=== PATIENT | female | born 1965 | race African-American/Black ===

== ENCOUNTER 2019-08-20 14:54 | Inpatient (IN) | payer BC ==
--- NOTE | 2019-08-20 17:08 | R.PREADM ---
SCREENING DATE AND TIME 08/20/2019 15:50 (LAMINATING MACHINE OPERATOR HELPER) ANTICIPATED REHAB ADMISSION DATE 08/22/2019 REFERRING FACILITY [facility] REFERRAL DATE AND TIME 08/20/2019 15:50 (LAMINATING MACHINE OPERATOR HELPER) ACUTE ADMIT DATE 08/11/2019 Previous Rehabilitation(s): No. REFERRING PHYSICIAN Addison Michael REHAB FACILITY [facility] CLINICAL LIAISON Antonio Dwyer PHYSICIAN REVIEWER Dr. Jared Sands M.D. MR# [id number] [id number] NAME WALTER TIWARI ADDRESS [address] [place]IP [address] DATE OF 1965 AGE 54 SSN# [id number] GENDER female MARITAL STATUS Unknown RACE white ADMIT FROM 01 - Home (private home/apt. board/care, assisted living, assisted, transitional living) PRE-HOSPITAL LIVING SETTING 01 - Home (private home/apt. board/care, assisted living, assisted, transitional living) HOME TYPE AND DETAILS Type of home: single family house # of steps to enter the residence: 0 # of steps within the residence: 0 # of levels in the residence: 1 PRE-HOSPITAL LIVING WITH Family/Relatives FAMILY SUPPORT Yes PRIMARY FAMILY CONTACT NAME Daisha Emerson PRIMARY FAMILY CONTACT PHONE PHONE PRIMARY FAMILY CONTACT ON ADM.? no IS PRIMARY FAMILY CONTACT AUTH. REP.? no 1ST EMERGENCY CONTACT Daisha Emerson 1ST CONTACT PHONE PHONE 1ST CONTACT ON ADM. no IS 1ST CONTACT AUTH. REP.? no PHONE 2ND CONTACT ON ADM.? 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 No ANOTHER CONSTITUTION PARTY RESPONSIBLE? No PRIMARY REHAB/ACUTE DIAGNOSIS: systemic lupus erythmatosus ONSET DATE 08/11/2019 REHAB IMPAIRMENT CATEGORY (YISSEL): 20 Miscellaneous (Misc) does NOT meet 60% rule PRIMARY DIAGNOSIS-RELATED SURGERIES: No surgeries related to the primary diagnosis were performed. COMORBID REHAB/ACUTE DIAGNOSES: - N/A left lower lobe pneumonia scleroderma gastroparesis muscle wasting weakness hypertension depression CHF exacerbation INTERVENTIONS: - Hypertension Fluid management Medications VS - Depression Medications Psycho/social Safety RISK FOR COMPLICATIONS: - Hypertension CVA Hypotension AR TIA - Depression Serotonin side effects SUMMARY OF ACUTE HOSPITALIZATION: Pt. is a 54 yo Right-handed white female. On 08/11/2019 she was admitted to [facility] with diagnosis systemic lupus erythmatos us. Her impairment category is Other Disabling Impairments 13 - Other Disabling Impairments (13). Pre-morbidly, Pt. was independent/mod-I in Self-Care, Ambulation, and Sphincter Control; and she had good Endurance and Safety Awareness. Currently, she has deficits of Locomotion, Self-Care, Endurance, Transfers Control, Ambulation, Safet y Awareness and Self-Care, and Functional mobility. Pt. is now referred to [facility] for acute in-patient rehabilitation in order to maximize patient's functional independence in activities of daily living, strength, ROM, and mobi lity. Patient has realistic goal of being discharged at assistance level 6-Carlos Manuel to reside at Home with Fam justina/Relatives. Patient was admitted to [facility] for Lupus exacerbation and CHF exacerbation. Patient was independent prior to admission and is working with with therapy. PAST MEDICAL HISTORY CHF exacerbation depression gastroparesis hypertension left lower lobe pneumonia muscle wasting scleroderma weakness MEDICATION ALLERGIES: No Known Drug Allergies (NKDA) ENVIRONMENTAL ALLERGIES: - Substance Allergies None Known - Other Allergies None Known CODE STATUS: Full code WEIGHT/HEIGHT/BMI: WEIGHT 155 lbs HEIGHT 5' 6" BMI 25 DIET: - Diet Type Regular - Diet - Solid Texture Regular - Diet - Liquid Texture Regular - Tube Feed N/A REVIEW OF SYSTEMS: - Gen Alert and awake Lying in bed No apparent distress Oriented to: person, time, and place - Vital Signs Vital signs stable, afebrile - CVS RRR VITAL SIGNS Temperature: 97.9 F SBP/DBP: 112/69 Pulse: 64 Resp: 16 Vital signs stable, afebrile MEDICATIONS/TREATMENT: Other- See attached MAR (Medication Administration Record). CURRENT SPHINCTER CONTROL: Pre-hospital bladder status: continent # of bladder accidents in the last 7 days prior to screenin Pre-hospital bowel status: continent # of bowel accidents in the last 7 days prior to screenin Last Bowel Movement Date: 08/20/2019 CURRENT LOCOMOTION STATUS: distance traveled in wheelchair 0 feet distance walked 50 feet DETAILED CURRENT FUNCTIONAL STATUS: - Bladder accident frequency: Ind - No accidents in the past 7 days - Bowel accident frequency: Ind - No accidents in the past 7 days - Walking score based on distance walked: 2(3969ft) - Wheelchair score based on distance traveled: 2(8389ft) QI SCORES: - Self-Care A. Eating 05-Setup or clean-up assistance B. Oral hygiene 05-Setup or clean-up assistance C. Toileting hygiene 04-Supervision or touching assistance E. Shower/bathe self 88-Not attempted due to medical condition or safety concerns F. Upper body dressing 05-Setup or clean-up assistance G. Lower body dressing 04-Supervision or touching assistance H. Putting on/taking off footwear 04-Supervision or touching assistance - Mobility A. Roll left and right 04-Supervision or touching assistance B. Sit to lying 05-Setup or clean-up assistance C. Lying to sitting on side of bed 04-Supervision or touching assistance D. Sit to stand 04-Supervision or touching assistance E. Chair/hix-ja-dzjad transfer 05-Setup or clean-up assistance F. Toilet transfer 04-Supervision or touching assistance G. Car transfer 88-Not attempted due to medical condition or safety concerns I. Walk 10 feet 04-Supervision or touching assistance J. Walk 50 feet with two turns 88-Not attempted due to medical condition or safety concerns K. Walk 150 feet 88-Not attempted due to medical condition or safety concerns L. Walking 10 feet on uneven surfaces 88-Not attempted due to medical condition or safety concerns M. 1 step (curb) 88-Not attempted due to medical condition or safety concerns N. 4 steps 88-Not attempted due to medical condition or safety concerns O. 12 steps 88-Not attempted due to medical condition or safety concerns P. Picking up object 88-Not attempted due to medical condition or safety concerns R. Wheel 50 feet with two turns 88-Not attempted due to medical condition or safety concerns S. Wheel 150 feet 88-Not attempted due to medical condition or safety concerns - Bladder and Bowel Bladder continence 0-Always continent Bowel continence 0-Always continent - Endurance Poor - Balance Fair - Safety Awareness Fair CURRENT FUNC. DEFICITS: Self-Care, Mobility, Endurance, Balance, and Safety Awareness CURRENT / PREVIOUS ASSISTIVE DEVICES: 3-in-1 Commode Rolling Walker Shower Chair HISTORY OF FALLS. HAS THE PATIENT HAD TWO OR MORE FALLS IN THE PAST YEAR OR ANY FALL WITH INJURY IN T HE PAST YEAR?: No PRIOR SURGERY. DID THE PATIENT HAVE MAJOR SURGERY DURING THE 100 DAYS PRIOR TO ADMISSION?: No THERAPY NOTES FROM ACUTE CARE: Attached. SPECIAL NEEDS: - Safety Concerns Skin breakdown precautions needed due to skin breakdown risk PATIENT NEEDS ACTIVE AND ONGOING THERAPEUTIC INTERVENTION OF MULTIPLE THERAPY DISCIPLINES, INCLUDING: - Dietary and Nutrition Adequate Nutrition. Nutritional Education. Nutritional Supplements. PATIENT NEEDS CLOSE MEDICAL SUPERVISION BY A REHABILITATION PHYSICIAN FOR: Coordination of Treatment Team Medical and Co-Morbidity Management PATIENT REQUIRES 24X7 REHAB NURSING FOR MEDICAL AND FUNCTIONAL MGT. OF THE FOLLOWING DEFICITS: Disease Management Medication Management Patient/Family Education Providing Safe Environment PATIENT REQUIRES INTENSIVE, COORDINATED INTERDISCIPLINARY APPROACH TO REHAB: Arranging Home Equipment/Services Discharge Planning Family Intervention/Training Podiatry Teacher/Case Management PATIENT REHAB POTENTIAL: Selina TIWARI is able and expected to receive 3 hours of individualized therapy daily on at least 5 of ever y 7 days Selina TIWARI's prognosis for significant practical improvement within a reasonable period of time appears Good Expected level of measurable improvement will be of a practical value to Selina TIWARI's functional capacit y or adaptations to impairments Has a viable Discharge Plan Medically appropriate; condition is sufficiently stable to participate in intensive rehab program DISCHARGE PLAN: - Estimated Length of Stay (days) 13. - Consensus on plan Discharge plan has been discussed with primary caregiver. Patient/Family is in agreement with the zoë n. Primary caregiver is in agreement with the plan. - Patient/Family Goals Return home with assistance. - Planned Living Setting Upon Discharge Home, to live with Family/Relatives. RECOMMENDED CARE LEVEL: IRF RECOMMENDATION DETAILS: Recommended Admission to Comprehensive Rehabilitation Program to Increase Functional [place] SCREENER'S COMPLETENESS CONFIRMATION: - Screening Confirmation The patient data collection on this preadmission screening form is finished PHYSICIANS REVIEW AND ADMISSION DETERMINATION Admit - Based on my review of the Pre-Admission Screening results, in my medical judgment and experie nce, I concur with the findings and recommend admission to [facility], as this patient requires an IRF level of care. SIGNATURE PANEL: Clinical Liaison - [electronically] signed by Stefanie Galicia on 08/20/2019 at 16:09 (LAMINATING MACHINE OPERATOR HELPER) Clinical Liaison - [electronically] signed by Antonio Dwyer on 08/20/2019 at 16:12 (LAMINATING MACHINE OPERATOR HELPER) Physician Reviewer - [electronically] signed by Dr. Jared Sands M.D. on 08/20/2019 at 17:08 (LAMINATING MACHINE OPERATOR HELPER )
--- OUTSIDE RECORDS SUMMARY | 2019-08-21 05:48 | XMS REPORT | Continuity of Care Document ---
:1965 Author Organization [facility] Address [address] [place] [address] Phone Unavailable Care Team Providers Name Role Phone TREY PALENCIA Primary Care Physician Insurance Providers Guarantor Walter Tiwari Address [address] [place] [address] Email [email or web address] Payer [facility] Policy Number [id number] Subscriber's Name Jovani Tiwari Relationship Spouse Group Number [id number] Group Name NA Advance Directives Directive Response Recorded Date/Time Advance Directives No 09/23/15 11:34pm Directive to Physicians/Living Will No 09/23/15 11:34pm Health Care Proxy No 09/23/15 11:34pm Organ Donor No 09/23/15 11:34pm Medical Power of Awning Hanger Helper No 09/23/15 11:34pm Patient/Family Given Education Material R/T Directives? No 06/18/18 9:10am Problems Medical Problem Onset Date Status Abdominal pain Unknown Acute Acute gastritis Unknown Acute Anxiety Unknown Chronic Anxiety in acute stress reaction Unknown Acute Atypical chest pain Unknown Acute CAD (coronary artery disease) Unknown Chronic Cancer Unknown Chest pain Unknown Acute Chest pain Unknown Acute Constipation Unknown Acute Dehydration Unknown Resolved Depression Unknown Chronic Failure to thrive in adult Unknown Acute HTN (hypertension) Unknown Chronic Headache Unknown Acute Leg pain Unknown Lower extremity weakness Unknown Nausea & vomiting Unknown Resolved Nausea alone Unknown Acute Pericardial effusion Unknown Chronic Rheumatoid arthritis Unknown Chronic Right shoulder pain Unknown Scleroderma Unknown Chronic UTI (urinary tract infection) Unknown Acute Vomiting Unknown Acute Weakness Unknown Past Problems Medical Problem Onset Date Status CHF (congestive heart failure) Unknown Acute Chest pain at rest Unknown Acute Colitis Unknown Acute Epigastric abdominal pain Unknown Acute Hypokalemia Unknown Acute Hypokalemia Unknown Acute Lupus Unknown Acute Lupus Unknown Acute Myositis Unknown Acute Pedal edema Unknown Acute Pericardial effusion Unknown Acute Rhabdomyolysis Unknown Acute Rhabdomyolysis Unknown Acute UTI (urinary tract infection) Unknown Acute Medications Current Home Medications Medication Dose Units Route Directions Days Qty Instructions Start Date Hydroxychloroquine 200 Mg ORAL Once Daily Sulfate (Hydroxychloroquine Sulfate 200 Mg) 200 Mg Tab Lorazepam (Ativan *) 0.5 Mg ORAL Twice Daily As 20 0.5 Mg Tab Needed as Tablet needed for Anxiety Mycophenolate Mofetil 2 Tab ORAL Twice A Day 360 (Cellcept*) 500 Mg for Tablet 7 Tab Scleroderma Prednisone 5 Mg ORAL Daily (Prednisone 1 Mg*) 1 Mg Tab Zolpidem Tartrate 5 Mg ORAL Once Daily At 30 (Ambien *) 5 Mg Tab Bedtime as Tablet 7 needed for Insomnia Past Home Medications Medication Directions Ordered Status Amoxicillin & Pot Clavulanate * Every 12 Hours for Prn 07/24/17 Discontinued (Augmentin Es-600MG Susp *) 1 Ml Lynette, 5 Ml Oral Carvedilol (Coreg *) 3.125 Mg Twice A Day for Hypertension 07/18/17 Discontinued Tab, 1 Tab Oral Citalopram Hydrobromide * Discontinued (Citalopram Hydrobromide 10 Mg *) 10 Mg Tab, Erythromycin (Erythromycin Base) Three Times Daily Before Meals 07/18/17 Discontinued 250 Mg Tabec, 500 Mg Oral for Gastroparesis Famotidine (Pepcid 20 Mg*) 20 Mg Twice A Day for Pud 07/24/17 Discontinued Tab, 20 Mg Oral Furosemide (Lasix 20 Mg*) 20 Mg Twice A Day for Chf 07/24/17 Discontinued Tab, 20 Mg Oral Losartan Potassium (Cozaar 25 Twice A Day for Hypertension 09/17/17 Discontinued Mg*) 25 Mg Tab, 25 Mg Oral Losartan Potassium (Cozaar 25 Daily Discontinued Mg*) 25 Mg Tab, 25 Mg Oral Losartan Potassium (Cozaar 50 Mg Daily for Hypertension 07/18/17 Discontinued *) 50 Mg Tab, 1 Tab Oral Metoclopramide Hcl (Reglan 10 Before Meals And At Bedtime for 07/24/17 Discontinued Mg*) 10 Mg Tab, 10 Mg Oral Nausea Metoclopramide Hcl Discontinued (Metoclopramide Hcl 10 Mg) 10 Mg Tab, Ondansetron Hcl (Zofran *) 4 Mg Every 6 Hours (4-07-14-22) for 07/18/17 Discontinued Tab, 1 Tab Oral N/V Pantoprazole * (Protonix Ec 40 Daily Discontinued Mg*) 40 Mg Tab, 40 Mg Oral Potassium Chloride (Kcl Oral Daily for Hypokalemia 07/24/17 Discontinued Soln 20% *) 20 % Liq, 20 Meq Oral Prednisone (Prednisone 20 Mg*) Daily for Scleroderma 09/17/17 Discontinued 20 Mg Tab, 20 Mg Oral Prednisone (Prednisone 2.5 Mg*) Daily Discontinued 2.5 Mg Tab, 5 Mg Oral Prednisone (Prednisone 20 Mg*) Daily for Lupus/Inflammation 07/18/17 Discontinued 20 Mg Tab, 40 Mg Oral Valsartan (Diovan 160 Mg *) 160 Discontinued Mg Tab, Social History Social History Problem Response Recorded Date/Time Onset Date Status Hx Physical Abuse No 05/14/2018 9:19pm Not Applicable Not Applicable Smoking Status Start Date Stop Date Never smoker Hospital Discharge Instructions No hospital discharge instruction information available. Plan of Care Prescriptions See Medication Section Functional Status No functional status information available. Allergies, Adverse Reactions, Alerts Allergen Type Severity Reaction Status Last Updated Sulfamethoxazole w/Trimethoprim Allergy Severe Active 07/24/17 ([id number]) Immunizations No immunization information available. Vital Signs Acute Vital Signs Vital Response Date/Time Blood Pressure 139/72 mm Hg 05/14/2018 11:41pm Pulse Pulse Rate (adult) 74 beats per minute (60 - 100) 05/14/2018 11:41pm Respiratory Rate 16 breaths per minute (10 - 24) 05/14/2018 11:41pm Temperature Source Oral 05/14/2018 11:41pm Results Laboratory Results Test Name Result Units Flags Reference Collection Result Comments Date/Time Date/Time White Blood 3.4 K/ul L 4.0-11.5 05/14/2018 05/14/2018 Count 10:11pm 10:17pm Red Blood Count 5.02 M/ul 3.80-5.20 05/14/2018 05/14/2018 10:11pm 10:17pm Hemoglobin 12.7 g/dl 10.5-15.7 05/14/2018 05/14/2018 10:11pm 10:17pm Hematocrit 39.6 % 34.0-50.0 05/14/2018 05/14/2018 10:11pm 10:17pm Mean Corpuscular 79.0 fl 78-98 05/14/2018 05/14/2018 Volume 10:11pm 10:17pm Mean Corpuscular 25.3 pg L 26.2-33.4 05/14/2018 05/14/2018 Hemoglobin 10:11pm 10:17pm Mean Corpuscular 32.1 g/dl 31.5-36.2 05/14/2018 05/14/2018 Hemoglobin 10:11pm 10:17pm Concent Red Cell 14.6 % 11.5-15.5 05/14/2018 05/14/2018 Distribution 10:11pm 10:17pm Width Platelet Count 263 K/ul 137-338 05/14/2018 05/14/2018 10:11pm 10:17pm Mean Platelet 7.6 fl L 8.4-11.8 05/14/2018 05/14/2018 Volume 10:11pm 10:17pm Neutrophils (%) 69.7 % 44.4-80.1 05/14/2018 05/14/2018 (Auto) 10:11pm 10:17pm Lymphocytes (%) 15.9 % 10.0-50.0 05/14/2018 05/14/2018 (Auto) 10:11pm 10:17pm Monocytes (%) 12.0 % 3.6-12.04 05/14/2018 05/14/2018 (Auto) 10:11pm 10:17pm Eosinophils (%) 0.4 % 0.0-5.41 05/14/2018 05/14/2018 (Auto) 10:11pm 10:17pm Basophils (%) 2.0 % H 0.0-0.79 05/14/2018 05/14/2018 (Auto) 10:11pm 10:17pm Random Glucose 93 mg/dL 74-106 05/14/2018 05/14/2018 10:11pm 10:58pm Blood Urea 5 mg/dL L 6-20 05/14/2018 05/14/2018 Nitrogen 10:11pm 10:58pm Serum Osmolality 273 L 280-300 05/14/2018 05/14/2018 10:11pm 10:58pm Creatinine 0.3 mg/dL L 0.50-0.90 05/14/2018 05/14/2018 10:11pm 10:58pm Glomerular > 60.00 05/14/2018 05/14/2018 GFR RESULTS ARE REPORTED IN mL/min/1.73m2. Filtration Rate 10:11pm 10:58pm Calc Normal GFR: >60mL/min Moderately decreased GFR: 30-59 mL/min Severely decreased GFR: 15-29 mL/min Kidney Failure (or Dialysis): <15 mL/min The calculated eGFR is not valid for patients younger than 18 years or older than 75 years. BUN/Creatinine 16.7 09-1705/14/2018 05/14/2018 Ratio 10:11pm 10:58pm Sodium Level 138 mmol/L 135-145 05/14/2018 05/14/2018 10:11pm 10:58pm Potassium Level 3.3 mmol/L L 3.5-5.2 05/14/2018 05/14/2018 10:11pm 10:58pm Chloride Level 97 mmol/L L 98-108 05/14/2018 05/14/2018 10:11pm 10:58pm Carbon Dioxide 26 mmol/L 21-32 05/14/2018 05/14/2018 Level 10:11pm 10:58pm Anion Gap 18.3 mEq/L 09-1705/14/2018 05/14/2018 10:11pm 10:58pm Calcium Level 9.9 mg/dL 8.6-10.0 05/14/2018 05/14/2018 10:11pm 10:58pm Magnesium Level 1.8 mg/dL 1.6-2.6 05/14/2018 05/14/2018 10:11pm 10:58pm Procedures Procedure Status Date Provider(s) EMERGENCY DEPT VISIT Completed 05/14/18 COMPLETE CBC W/AUTO DIFF WBC Completed 05/14/18 ASSAY OF MAGNESIUM Completed 05/14/18 ROUTINE VENIPUNCTURE Completed 05/14/18 METABOLIC PANEL TOTAL CA Completed 05/14/18 X-RAY EXAM OF SMALL BOWEL Completed 05/27/18 XR small bowel series Completed 05/27/18 FRED WHEELER MOBILE EQUIPMENT OPERATOR Encounters Encounter Location Arrival/Admit Date Discharge/Depart Date Attending Provider Discharged [place] 06/25/18 9:00am 06/28/18 11:59pm ELEAZAR BARNEY [facility] MD Medical Ctr Registered [place] 05/27/18 8:38am FRED WHEELER [facility] MOBILE EQUIPMENT OPERATOR Medical Ctr Departed [place] 05/14/18 9:04pm 05/14/18 11:42pm SHANNAN, Emergency Room [facility] RASHEEDA Mena MD Medical Ctr Recent Diagnosis Leg pain Lower extremity weakness
--- OUTSIDE RECORDS SUMMARY | 2019-08-21 05:48 | XMS REPORT | Continuity of Care Document ---
:1965 Author Organization [facility] Address [address] [place] [address] Phone Unavailable Care Team Providers Name Role Phone HONEY CUELLAR MD Primary Care Physician Insurance Providers Guarantor Walter Tiwari Address [address] [place] [address] Email Payer [facility] Policy Number [id number] Subscriber's Name Jovani Tiwari Relationship Spouse Group Number [id number] Group Name NA Advance Directives Directive Response Recorded Date/Time Advance Directives No 09/23/15 11:34pm Advance Directive on File No 07/11/18 5:57pm Directive to Physicians/Living Will No 09/23/15 11:34pm Health Care Proxy No 09/23/15 11:34pm Name of Surrogate/Decision Maker NA 07/11/18 5:55pm Organ Donor No 09/23/15 11:34pm Medical Power of Budget Report Clerk No 09/23/15 11:34pm Patient/Family Given Education Material R/T Y - KR..07/11/18 07/11/18 5: 57pm Directives? Chief Complaint and Reason for Visit Chief Complaint Trauma Reason for Visit [id number] Minor head injury without loss of consciousness Fall Problems Medical Problem Onset Date Status Abdominal [...] Unknown Acute Epigastric abdominal pain Unknown Acute Fall Unknown Acute Hypokalemia Unknown Acute Hypokalemia Unknown Acute Lupus Unknown Acute Lupus Unknown Acute Minor head injury without loss of consciousness Unknown Acute Myositis Unknown Acute Pedal edema Unknown Acute Pericardial effusion Unknown Acute Periorbital contusion Unknown Acute Rhabdomyolysis Unknown Acute Rhabdomyolysis Unknown [...] (Zofran *) 4 Mg Every 6 Hours (01-07-16) for 07/18/17 Discontinued Tab, 1 Tab Oral [...] Onset Date Status Hx Physical Abuse No 07/11/2018 5:57pm Not Applicable Not Applicable Smoking Status Start Date Stop Date Never smoker Hospital Discharge Instructions No hospital discharge instruction information available. Plan of Care Discharge Date 07/11/18 9:20pm Instructions/Education Provided Fall Prevention in the Home, Rnmn-te-Exru Eye Contusion, Teye-xv-Zcas Head Injury, Adult, Ufjx-le-Zcsh Forms Provided Portal Welcome Letter Prescriptions See Medication Section Referrals HONEY CUELLAR MD Address: [address] [place] [id number] Additional Instructions/Education HEAD INJURY INSTRUCTIONS GIVEN. ICE PACKS TO THE AREA. NAPROXEN 500 MG AND TYLENOL # 3 DIRECTED. F/U WITH PMD ON [facility]. RETURN PER HEAD INJURY INSTRUCTIONS. Functional Status No functional status information available. Allergies, Adverse Reactions, Alerts Allergen Type Severity Reaction Status Last Updated Sulfamethoxazole w/Trimethoprim Allergy Severe Active 07/24/17 ([id number]) Immunizations No immunization information available. Vital Signs Acute Vital Signs Vital Response Date/Time Blood Pressure 139/74 mm Hg 07/11/2018 9:29pm Pulse Pulse Rate (adult) 86 beats per minute (60 - 100) 07/11/2018 9:29pm Respiratory Rate 18 breaths per minute (10 - 24) 07/11/2018 9:29pm Temperature Source Oral 07/11/2018 9:29pm Height 5 ft 6 in 07/11/2018 5:57pm Weight 132 lb 07/11/2018 5:57pm Body Mass Index 21.3 kg/m^2 07/11/2018 5:57pm Results Laboratory Results Test Name Result Units [...] or older than 75 years. BUN/Creatinine 16.7 12-05/14/2018 05/14/2018 Ratio 10:11pm 10:58pm Sodium Level 138 mmol/L 135-145 05/14/2018 05/14/2018 10:11pm 10:58pm Potassium Level 3.3 mmol/L L 3.5-5.2 05/14/2018 05/14/2018 10:11pm 10:58pm Chloride Level 97 mmol/L L 98-108 05/14/2018 05/14/2018 10:11pm 10:58pm Carbon Dioxide 26 mmol/L 21-32 05/14/2018 05/14/2018 Level 10:11pm 10:58pm Anion Gap 18.3 mEq/L 12-20 05/14/2018 05/14/2018 10:11pm 10:58pm Calcium Level 9.9 mg/dL 8.6-10.0 05/14/2018 05/14/2018 10:11pm 10:58pm Magnesium Level 1.8 mg/dL 1.6-2.6 05/14/2018 05/14/2018 10:11pm 10:58pm Procedures Procedure Status Date Provider(s) EMERGENCY DEPT VISIT Completed 05/14/18 COMPLETE CBC W/AUTO DIFF WBC Completed 05/14/18 ASSAY OF MAGNESIUM Completed 05/14/18 ROUTINE VENIPUNCTURE Completed 05/14/18 METABOLIC PANEL TOTAL CA Completed 05/14/18 X-RAY EXAM OF SMALL BOWEL Completed 05/27/18 PT EVAL MOD COMPLEX 30 MIN Completed 06/18/18 SELF CARE MNGMENT TRAINING Completed 06/18/18 SELF CARE MNGMENT TRAINING Completed 06/18/18 THERAPEUTIC EXERCISES Completed 06/18/18 SELF CARE MNGMENT TRAINING Completed 06/18/18 THERAPEUTIC EXERCISES Completed 06/18/18 CT SOFT TISSUE NECK W/DYE Completed 06/30/18 XR small bowel series Completed 05/27/18 FRED WHEELER NP Computed tomography of neck with contrast Completed 06/30/18 SABRINA CHRISTINE MD Computed tomography of head without Completed 07/11/18 LEATHA IRVING MD contrast Computed tomography of facial bones and Completed 07/11/18 LEATHA IRVING MD paranasal sinuses without contrast Encounters Encounter Location Arrival/Admit Date Discharge/Depart Date Attending Provider Departed [place] 07/11/18 5:48pm 07/11/18 9:20pm LEATHA IRVING Emergency Room Rufus Doran MD Medical Ctr Registered [place] 06/30[facility] 8:[facility] S[facility] Del[facility] Medical Ctr Discharged [place] 06/18/18 9:12am 06/28/18 11:59pm ELEAZAR BARNEY [facility] MD Medical Ctr Registered [place] 05/27/18 8:38am FRED WHEELER [facility] TOURIST GUIDE Medical Ctr Departed [place] 05/14/18 9:04pm 05/14/18 11:42pm SHANNAN, Emergency Room [facility] RASHEEDA Mena MD Medical Ctr Recent Diagnosis
--- OUTSIDE RECORDS SUMMARY | 2019-08-21 05:48 | XMS REPORT ---
:1965 [facility] [address] [place] [address] [place] [address] Care Team Providers Name Role Phone Unavailable Unavailable Unavailable Problems This patient has no known problems. Allergies, Adverse Reactions, Alerts This patient has no known allergies or adverse reactions. Medications This patient has no known medications. Encounters Start End Encounter Admission Attending Care Care Encounter Date/Time Date/Time Type Type Clinicians Facility Department ID 2019-08-18 Outpatient [facility] [id number] 15:47:07 2019-01-22 Outpatient [facility] [id number] 11:10:13 2019-06-24 2019-06-24 Outpatient [facility] [id number] 09:38:00 09:38:00 2019-03-29 2019-03-29 Outpatient [facility] [id number] 08:56:00 08:56:00 2019-03-22 2019-03-22 Outpatient [facility] [id number] 13:45:00 13:45:00
--- OUTSIDE RECORDS SUMMARY | 2019-08-21 05:49 | XMS REPORT | Encounter Summary ---
:1965 Author Care Team Providers Name Role Phone Caroline Velazquez Primary Care Provider [phone] Nichol Rah Primary Care Provider [phone] Reason for Visit Follow Up Visit Instructions 1. Systemic lupus erythematosus lupus: care instructions physical therapy referral 2. Edema of lower extremity leg and ankle edema: care instructions furosemide 20 mg tablet 3. Nondiabetic gastroparesis Discussion Note: None recorded. Plan of Care Reminders Provider Appointments Return to on or around [facility] Office 11/01/2018 MD [facility] None recorded. Referral Physical 09/30/2018 [facility] Referral [facility] (Physical Therapy) Procedures None recorded. Surgeries None recorded. Imaging None recorded. Medications Name Start Date amlodipine 10 mg tablet carvedilol 3.125 mg tablet citalopram 10 mg tablet Take 1 tablet every day by oral route. famotidine 20 mg tablet furosemide 20 mg tablet Take 1 tablet as needed by oral route as needed. hydroxychloroquine 200 mg tablet lorazepam 0.5 mg tablet losartan 25 mg tablet metoclopramide 10 mg tablet Take 1 tablet 4 times a day by oral route with meals. mycophenolate mofetil 200 mg/mL oral suspension mycophenolate mofetil 500 mg tablet mycophenolate sodium 360 mg tablet,delayed release nifedipine ER 30 mg tablet,extended release 24 hr nystatin 100,000 unit/mL oral suspension ofloxacin 0.3 % ear drops omeprazole 20 mg capsule,delayed release pantoprazole 40 mg tablet,delayed release potassium chloride 40 mEq/15 mL oral liquid potassium chloride ER 10 mEq tablet,extended release(part/cryst) prednisone 20 mg tablet promethazine 25 mg tablet sucralfate 1 gram tablet zolpidem 5 mg tablet Medications Administered None recorded. Vitals Height Weight BMI Blood Pressure 67 in 125 lbs 6 oz 19.6 kg/m2 146/89 mm[Hg] Lab Results Date Name Specimen Result Interpretation Description Value Range Status Address 09/07/2018 CBC W/ Auto Normal White Blood 8.6 K/uL 4.0-11.5 Final [place] Diff Count K/uL [facility] (Lab): [address] [place] [address] Normal Red Blood 4.78 3.80-5.20 Final [place] Count M/uL M/uL [facility] (Lab): [address] [place] [address] Normal Hemoglobin 12.0 10.5-15.7 Final [place] g/dL g/dL [facility] (Lab): [address] [place] [address] Normal Hematocrit 38.0 % 34.0-50.0 Final [place] % [facility] (Lab): [address] [place] [address] Normal Mean 79.5 fL 78-98 fL Final [place] Corpuscular [facility] Volume [facility] (Lab): [address] [place] [address] Low Mean 25.0 pg 26.2-33.4 Final [place] Corpuscular pg [facility] Hemoglobin [facility] (Lab): [address] [place] [address] Normal Mean 31.5 31.5-36.2 Final [place] Corpuscular g/dL g/dL [facility] (Lab): [address] [place] [address] Red Cell 16.3 % 11.5-15.5 Final [place] Distribution % [facility] Width [facility] (Lab): [address] [place] [address] Normal Platelet 210 K/uL 137-338 Final [place] Count K/uL [facility] (Lab): [address] [place] [address] Low Mean 6.2 fL 8.4-11.8 Final [place] Platelet fL [facility] (Lab): [address] [place] [address] High Neutrophils 85.0 % 44.4-80.1 Corrected [place] % % [facility] (Lab): [address] [place] [address] Low Lymphocyte% 5.9 % 10.0-50.0 Final [place] % [facility] (Lab): [address] [place] [address] Normal [place] % 8.1 % 3.6-12.04 Final [place] % [facility] (Lab): [address] [place] [address] Normal Eos % 0.2 % 0.0-5.41 Final [place] % [facility] (Lab): [address] [place] [address] High Basophil % 0.8 % 0.0-0.79 Final [place] % [facility] (Lab): [address] [place] [address] 09/07/2018 Differential Normal Neutrophils Incomplete [place] Panel, Blood [facility] (Lab): [address] [place] [address] Normal Band Incomplete [facility] (Lab): [address] [place] [address] Normal Lymphocyte Incomplete [facility] (Lab): [address] [place] [address] Normal Atypical Incomplete [place] Lymph [facility] (Lab): [address] [place] [address] Normal Monocyte Incomplete [facility] (Lab): [address] [place] [address] Normal Eosinophil Incomplete [facility] (Lab): [address] [place] [address] Normal Basophil [facility] (Lab): [address] [place] [address] Normal Metamyelocyt [facility] e [facility] (Lab): [address] [place] [address] Normal Platelet Incomplete [place] Estimate [facility] (Lab): [address] [place] [address] Normal Platelet [facility] Morphology [facility] (Lab): [address] [place] [address] Normal Hypochromasi [facility] a [facility] (Lab): [address] [place] [address] Normal Anisocytosis [facility] (Lab): [address] [place] [address] Normal Microcytosis [facility] (Lab): [address] [place] [address] Normal Stomatocyte [facility] (Lab): [address] [place] [address] Normal Toxic Incomplete [place] Granulation [facility] (Lab): [address] [place] [address] Normal Hypersegment [facility] ed Polys [facility] (Lab): [address] [place] [address] Normal Rouleau Incomplete [facility] (Lab): [address] [place] [address] Normal Toxic Incomplete [place] Vacuolation [facility] (Lab): [address] [place] [address] Normal Giant Incomplete [place] Platelets [facility] (Lab): [address] [place] [address] Normal Differential [facility] comment-P [facility] (Lab): [address] [place] [address] 09/07/2018 Lactic Acid, High Lactic Acid 2.53 0.5-2.2 Final [place] Blood mmol/L mmol/L [facility] (Lab): [address] [place] [address] 09/07/2018 CMP, Serum High Glucose 110 74-106 Final [place] or Plasma mg/dL mg/dL [facility] (Lab): [address] [place] [address] Normal Blood Urea 18 mg/dL 6-20 Final [place] Nitrogen mg/dL [facility] (Lab): [address] [place] [address] Low Osmolality 278 280-300 Final [place] Calculated, [facility] Serum [facility] (Lab): [address] [place] [address] Low Creatinine 0.3 0.50-0.90 Final [place] mg/dL mg/dL [facility] (Lab): [address] [place] [address] Normal Glomerular >60.00 Final [place] Filtration [facility] (Lab): [address] [place] [address] High BUN/creatini 60.0 12-20 Final [place] ne Ratio [facility] (Lab): [address] [place] [address] Normal Sodium Level 138 135-145 Final [place] mmol/L mmol/L [facility] (Lab): [address] [place] [address] Normal Potassium 3.8 3.5-5.2 Final [place] Level mmol/L mmol/L [facility] (Lab): [address] [place] [address] Normal Chloride 99 98-108 Final [place] Level mmol/L mmol/L [facility] (Lab): [address] [place] [address] Normal Co2 25 21-32 Final [place] mmol/L mmol/L [facility] (Lab): [address] [place] [address] Normal Anion Gap 17.8 12-20 Final [place] mEq/L mEq/L [facility] (Lab): [address] [place] [address] Normal Calcium 9.6 8.6-10.0 Final [place] Level mg/dL mg/dL [facility] (Lab): [address] [place] [address] Normal Total 8.0 g/dL 6.6-8.7 Final [place] Protein g/dL [facility] (Lab): [address] [place] [address] Normal Albumin 4.5 g/dL 3.5-5.2 Final [place] g/dL [facility] (Lab): [address] [place] [address] Normal Globulin 3.5 Final [place] gm/dL [facility] (Lab): [address] [place] [address] Normal A/g Ratio 1.3 >1.0 Final [place] [facility] (Lab): [address] [place] [address] Normal Bilirubin,to 1.0 0.0-1.2 Final [place] sushila mg/dL mg/dL [facility] (Lab): [address] [place] [address] High AST/SGOT 99 U/L 15-32 U/L Final [facility] (Lab): [address] [place] [address] High ALT/SGPT 82 U/L 0-33 U/L Final [facility] (Lab): [address] [place] [address] Normal Alkaline 61 U/L 35-105 Final [place] Phosphatase, U/L [facility] Total [facility] (Lab): [address] [place] [address] 09/07/2018 Lipase, Normal Lipase 31 U/L 13-60 U/L Final [place] Serum or [facility] Plasma [facility] (Lab): [address] [place] [address] 09/07/2018 CK (Creatine CRITICAL Creatine 1790 U/L 20-180 Final [place] Kinase), HIGH Kinase U/L [facility] Serum [facility] (Lab): [address] [place] [address] 09/07/2018 Myoglobin, High Myoglobin 869 25-58 Final [place] Serum or NG/mL NG/mL [facility] Plasma [facility] (Lab): [address] [place] [address] 09/07/2018 Troponin I, Normal Cardiac <0.30 0.0-0.5 Final [place] Cardiac, Troponin I NG/mL NG/mL [facility] Quant, Blood [facility] (Lab): [address] [place] [address] 09/07/2018 CK-mb, Blood CRITICAL Mass 58.6 0.0-3.6 Final [place] HIGH Creatinine NG/mL NG/mL [facility] Kinase-mb [facility] (Lab): [address] [place] [address] 09/07/2018 PT/INR Normal Prothrombin 10.7 10.3-12.3 Final [place] Time seconds seconds [facility] (Lab): [address] [place] [address] Normal Inr 0.97 Final [facility] (Lab): [address] [place] [address] 09/07/2018 Partial Normal Partial 26.6 22.5-37.0 Final [place] Thromboplast Thromboplasti seconds seconds [facility] in [facility] (Lab): 104 [address] [facility] Allergies Code Code System Name Reaction Severity Status Onset Sulfa Active (Sulfonamid e Antibiotics ) Problems Name Status Onset Date Source Gastritis Active Encounter Neck Pain Active Encounter Acute Thoracic Back Pain Active Encounter Fatigue Active Encounter Procedures Date Name Performed by 06/30/2017 Colonoscopy Information not available 06/20/2017 Upper GI Endoscopy Information not available Cholecystectomy Information not available Hysterectomy Information not available Vaccine List None recorded. Social History Smoking Status Never Smoker Past Encounters 09/30/2018 Systemic Lupus Erythematosus; Edema of Lower Extremity; Nondiabetic Gastroparesis Addison Michael MD: [address] [place] [address], [address], [place] [address], Ph. 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 She does have SLE as well, she iris plaquenil and cellcept. She does have lower extremity edema, intermittently.<div> She has been on lasix in the past but not recently.</div><div>
</div><div>SLEwith a hx of pericardial effusion, s/p pericardial window January 2018, followes with Dr Mckenzie</div><div>
</div ><div>She also sees Dr Sauer for vomiting and gerd. She had an EGD done, no tears or ulcers. She has gastroparesis. She does have nausea and vomtiing intermittently. She was on reglan but had alot of headaches so she stopped it. She is eating small portions ofmeals more times per day</div>& lt;div>
</div><div>
</div> Review of Systems General Adult ROS Reported By: Patient Constitutional: Constitutional: exercise intolerance Eyes: Eyes: no vision change ENMT: Ears: no difficulty hearing. Mouth/Throat: Constantly clearing the throat, sore throat, Post Nasal Dripping Cardiovascular: Cardiovascular: no chest pain, no arm pain on exertion, no shortness of breath when walking Respiratory: Respiratory: no wheezing, no shortness of breath, cough Gastrointestinal: Gastrointestinal: no abdominal pain, frequent diarrhea Genitourinary: Genitourinary: no incontinence, no difficulty urinating Neurologic: Neurologic: no loss of consciousness, no weakness, no numbness Physical Exam General Adult Exam - Female Reported By: Patient Constitutional: General Appearance: healthy-appearing, well-nourished, well-developed. Level of Distress: NAD. Ambulation: ambulating normally Psychiatric: Insight: good judgement. Mental Status: active and alert, normal mood, normal affect. Orientation: to time, to place, to person. Memory: recent memory normal Head: Head: normocephalic Eyes: Pupils: PERRLA. EOM: EOMI. Sclerae: non-icteric ENMT: Oropharynx: moist mucous membranes Neck: Neck: supple, FROM. Thyroid: no enlargement, non-tender, no nodules Lungs: Respiratory effort: no dyspnea. Auscultation: breath sounds normal, good air movement Cardiovascular: Heart Auscultation: RRR, normal S1, normal S2. Neck vessels: no carotid bruits. Pulses including femoral / pedal: normal throughout Abdomen: Bowel Sounds: normal. Inspection and Palpation: soft, non-distended, no tenderness, no guarding Musculoskeletal:: Motor Strength and Tone: normal motor strength, normal tone. Joints, Bones, and Muscles: normal movement of all extremities. Extremities: no cyanosis, no edema, no varicosities Neurologic: Gait and Station: normal gait, normal station. Cranial Nerves: grossly intact. Reflexes: DTRs 2+ bilaterally throughout Skin: Inspection and palpation: no rash, no lesions
--- OUTSIDE RECORDS SUMMARY | 2019-08-21 05:49 | XMS REPORT | Continuity of Care Document ---
:1965 Author Organization [facility] Address [address] [place] [address] Phone Unavailable Care Team Providers Name Role Phone HONEY CUELLAR MD Primary Care Physician Insurance Providers Guarantor Walter Maza Address [address] [place] [address] Email [email or web address] Payer [facility] Policy Number [id number] Subscriber's Name Jovani Maza Relationship Spouse Group Number [id number] Group Name NA Advance Directives Directive Response Recorded Date/Time Advance Directives No 09/23/15 11:34pm Advance Directive on File No 08/19/18 9:53pm Directive to Physicians/Living Will No 09/23/15 11:34pm Health Care Proxy No 09/23/15 11:34pm Name of Surrogate/Decision Maker NA 08/19/18 5:55pm Organ Donor No 09/23/15 11:34pm Medical Power of Molder Sweep No 09/23/15 11:34pm Patient/Family Given Education Material R/T Y - KR....08/19/18 08/19/18 9: 53pm Directives? Chief Complaint and Reason for Visit Chief Complaint CREST SYNDROME,PERICARDIAL EFFUSION Reason for Visit Pericardial effusion Acute gastritis Nausea & vomiting Problems Medical Problem Onset Date Status Abdominal [...] Status CHF (congestive heart failure) Unknown Acute CREST syndrome Unknown Acute Chest pain at rest Unknown Acute Colitis Unknown Acute Epigastric abdominal pain Unknown Acute Fall Unknown Acute Hypokalemia Unknown Acute Hypokalemia Unknown Acute Lupus Unknown Acute Lupus Unknown Acute Minor head injury without loss of consciousness Unknown Acute Myositis Unknown Acute Pedal edema Unknown Acute Pericardial effusion Unknown Acute Periorbital contusion Unknown Acute Rhabdomyolysis Unknown Acute Rhabdomyolysis Unknown Acute Rhabdomyolysis Unknown Acute UTI (urinary tract infection) Unknown Acute Medications Current Home Medications Medication Dose Units Route Directions Days Qty Instructions Start Date Cefdinir (Omnicef) 1 Cap ORAL Twice A Day for 5 10 Cap 08/24/ 300 Mg Cap Pneumonia Days 18 Hydroxychloroquine 200 Mg ORAL Once Daily Sulfate (Hydroxychloroquine Sulfate 200 Mg) 200 Mg Tab Lorazepam (Ativan 0.5 Mg ORAL Twice Daily As 20 *) 0.5 Mg Tab Needed as needed Tablet for Anxiety Mycophenolate 2 Tab ORAL Twice A Day for 360 09/17/ Mofetil (Cellcept*) Scleroderma Tablet 17 500 Mg Tab Omeprazole 1 Cap ORAL Daily 30 Cap (Omeprazole 20 Mg *) 20 Mg Cap Prednisone 60 Mg ORAL Daily for 30 3 PO DAILY X 08/24/ (Prednisone 20 Mg*) Immunosuppressants Tablet 4 DAYS; 2 PO 18 20 Mg Tab DAILY X 4 DAYS; 1 PO DAILY Zolpidem Tartrate 5 Mg ORAL Once Daily At 30 07/18/ (Ambien *) 5 Mg Tab Bedtime as needed Tablet 17 for Insomnia Past Home Medications Medication Directions [...] % Liq, 20 Meq Oral Prednisone (Prednisone 1 Mg*) 1 Daily Discontinued Mg Tab, 5 Mg Oral Prednisone (Prednisone [...] Onset Date Status Hx Physical Abuse No 08/19/2018 11:39pm Not Applicable Not Applicable Smoking Status Start Date Stop Date Never smoker Hospital Discharge Instructions No hospital discharge instruction information available. Plan of Care Discharge Date 08/24/18 6:46pm Disposition PATIENT DISCHARGE HOME OR SELF Instructions/Education Provided Rhabdomyolysis Cefdinir capsules Pericardial Effusion Prednisone tablets Forms Provided Portal Welcome Letter Prescriptions See Medication Section Care Plan and Goals OK TO DC IV AND DC HOME FOLLOW-UP WITH PRIMARY CARE PROVIDER IN 1-2 WEEKS FOLLOW-UP WITH Medicare Biller IN 1-2 WEEKS RETURN TO THE ER IF symptoms worsens CALL DR. GERMAIN AT [phone] IF ANY QUESTIONS REGARDING HOSPITAL STAY. PLEASE CALL THE FLOOR AT [phone] IF ANY MEDICATION OR NURSING QUESTIONS Functional Status No functional status information available. Allergies, Adverse Reactions, Alerts Allergen Type Severity Reaction Status Last Updated Sulfamethoxazole w/Trimethoprim Allergy Severe Active 07/24/17 ([id number]) Immunizations No immunization information available. Vital Signs Acute Vital Signs Vital Response Date/Time Blood Pressure 142/73 mm Hg 08/24/2018 4:14pm Pulse Pulse Rate (adult) 63 beats per minute (60 - 100) 08/24/2018 4:14pm Respiratory Rate 18 breaths per minute (10 - 24) 08/24/2018 4:14pm Temperature Source Oral 08/24/2018 4:14pm Height 5 ft 6 in 08/19/2018 5:50pm Weight 129.19 lb 08/24/2018 5:19am Body Mass Index 20.9 kg/m^2 08/24/2018 5:19am Results Laboratory Results Test Name Result Units Flags Reference Collection Result Comments Date/Time Date/Time White Blood 8.5 K/ul 4.0-11.5 08/24/2018 08/24/2018 Count 3:25am 4:32am Red Blood Count 4.05 M/ul 3.80-5.20 08/24/2018 08/24/2018 3:25am 4:32am Hemoglobin 10.1 g/dl L 10.5-15.7 08/24/2018 08/24/2018 3:25am 4:32am Hematocrit 31.3 % L 34.0-50.0 08/24/2018 08/24/2018 3:25am 4:32am Mean Corpuscular 77.3 fl L 78-98 08/24/2018 08/24/2018 Volume 3:25am 4:32am Mean Corpuscular 24.9 pg L 26.2-33.4 08/24/2018 08/24/2018 Hemoglobin 3:25am 4:32am Mean Corpuscular 32.1 g/dl 31.5-36.2 08/24/2018 08/24/2018 Hemoglobin 3:25am 4:32am Concent Red Cell 13.4 % 11.5-15.5 08/24/2018 08/24/2018 Distribution 3:25am 4:32am Width Platelet Count 245 K/ul 137-338 08/24/2018 08/24/2018 3:25am 4:32am Mean Platelet 7.1 fl L 8.4-11.8 08/24/2018 08/24/2018 Volume 3:25am 4:32am Neutrophils (%) 78.1 % 44.4-80.1 08/24/2018 08/24/2018 (Auto) 3:25am 4:32am Lymphocytes (%) 12.7 % 10.0-50.0 08/24/2018 08/24/2018 (Auto) 3:25am 4:32am Monocytes (%) 8.1 % 3.6-12.04 08/24/2018 08/24/2018 (Auto) 3:25am 4:32am Eosinophils (%) 0.0 % 0.0-5.41 08/24/2018 08/24/2018 (Auto) 3:25am 4:32am Basophils (%) 1.1 % H 0.0-0.79 08/24/2018 08/24/2018 (Auto) 3:25am 4:32am D-Dimer 1371 ng/mL H* <500 08/21/2018 08/21/2018 Results have been broadcasted to patient's location and 5:34am 5:56am called to (VALENTE). By JAIME OBRIEN 08/21/18 @0555 Prothrombin Time 11.0 SECONDS 10.3-12.3 08/19/2018 08/19/2018 6:20pm 6:40pm THERAPEUTIC LEVEL: 1.5 to 1.9 times normal range of PT Prothromb Time 1.00 08/19/2018 08/19/2018 International 6:20pm 6:40pm Recommended therapeutic range for patients receiving Ratio warfarin (coumadin) therapy: INR is 2.0 to 3.0 Recommended range for patients with mechanical prosthetic heart valves: INR is 2.5 to 3.5 Activated 29.1 SECONDS 22.5-37.0 08/19/2018 08/19/2018 Partial 6:20pm 6:40pm Thromboplast Time Urine Color YELLOW 08/24/2018 08/24/2018 11:30am 12:42pm Urine Appearance CLEAR CLEAR 08/24/2018 08/24/2018 11:30am 12:42pm Urine Glucose NEGATIVE NEGATIVE 08/24/2018 08/24/2018 11:30am 12:42pm Urine Bilirubin NEGATIVE NEGATIVE 08/24/2018 08/24/2018 11:30am 12:42pm Urine Ketones NEGATIVE NEGATIVE 08/24/2018 08/24/2018 11:30am 12:42pm Urine Specific 1.024 1.003-1.03 08/24/2018 08/24/2018 [place] 0 11:30am 12:42pm Urine Blood NEGATIVE NEGATIVE 08/24/2018 08/24/2018 11:30am 12:42pm Urine pH 6.000 5-9 08/24/2018 08/24/2018 11:30am 12:42pm Urine Protein TRACE NEGATIVE 08/24/2018 08/24/2018 11:30am 12:42pm Urine NORMAL mg/dL 0.2-1.0 08/24/2018 08/24/2018 Urobilinogen 11:30am 12:42pm Urine Nitrate NEGATIVE NEGATIVE 08/24/2018 08/24/2018 11:30am 12:42pm Urine Leukocyte NEGATIVE NEGATIVE 08/24/2018 08/24/2018 Esterase 11:30am 12:42pm Urine RBC 1-5 /hpf 0-5 08/24/2018 08/24/2018 11:30am 12:43pm Urine WBC 1-5 /hpf 0-5 08/24/2018 08/24/2018 11:30am 12:43pm Urine Epithelial 1-5 /hpf 0-5 08/24/2018 08/24/2018 Cells 11:30am 12:43pm Urine Bacteria None /hpf None 08/24/2018 08/24/2018 Detected Detect 11:30am 12:43pm Urine Casts 6-10 /lpf H None 08/24/2018 08/24/2018 Detect 11:30am 12:43pm Urine Culture NO 08/24/2018 08/24/2018 Reflexed 11:30am 12:42pm POC Capillary 99 mg/dL 70 - 110 08/20/2018 08/20/2018 Blood Glucose 6:00pm 6:23pm (Chem) Random Glucose 124 mg/dL H 74-106 08/24/2018 08/24/2018 3:25am 4:41am Blood Urea 12 mg/dL 6-20 08/24/2018 08/24/2018 Nitrogen 3:25am 4:41am Serum Osmolality 279 L 280-300 08/24/2018 08/24/2018 3:25am 4:41am Creatinine 0.2 mg/dL L 0.50-0.90 08/24/2018 08/24/2018 3:25am 4:41am Glomerular > 60.00 08/24/2018 08/24/2018 GFR RESULTS ARE REPORTED IN mL/min/1.73m2. Filtration Rate 3:25am 4:41am Calc Normal GFR: >60mL/min Moderately decreased GFR: 30-59 mL/min Severely decreased GFR: 15-29 mL/min Kidney Failure (or Dialysis): <15 mL/min The calculated eGFR is not valid for patients younger than 18 years or older than 75 years. BUN/Creatinine 60.0 H 12-08/24/2018 08/24/2018 Ratio 3:25am 4:41am Sodium Level 139 mmol/L 135-145 08/24/2018 08/24/2018 3:25am 4:41am Potassium Level 3.4 mmol/L L 3.5-5.2 08/24/2018 08/24/2018 3:25am 4:41am Chloride Level 100 mmol/L 98-108 08/24/2018 08/24/2018 3:25am 4:41am Carbon Dioxide 28 mmol/L 21-32 08/24/2018 08/24/2018 Level 3:25am 4:41am Anion Gap 14.4 mEq/L 12-08/24/2018 08/24/2018 3:25am 4:41am Calcium Level 8.9 mg/dL 8.6-10.0 08/24/2018 08/24/2018 3:25am 4:41am Total Protein 7.1 g/dL 6.6-8.7 08/24/2018 08/24/2018 3:25am 4:41am Albumin 3.7 g/dL 3.5-5.2 08/24/2018 08/24/2018 3:25am 4:41am Globulin 3.4 gm/dL 08/24/2018 08/24/2018 3:25am 4:41am Albumin/Globulin 1.1 >1.0 08/24/2018 08/24/2018 Ratio 3:25am 4:41am Total Bilirubin 0.3 mg/dL 0.0-1.2 08/24/2018 08/24/2018 3:25am 4:41am Aspartate Amino 79 U/L H 15-32 08/24/2018 08/24/2018 Transf 3:25am 4:41am (AST/SGOT) Alanine 74 U/L H 0-33 08/24/2018 08/24/2018 Aminotransferase 3:25am 4:41am (ALT/SGPT) UE-Mxg-B-Type 2886 pg/mL H 0-125 08/24/2018 08/24/2018 Natriuretic 3:32am 9:52am Peptide Total Alkaline 43 U/L 35-105 08/24/2018 08/24/2018 Phosphatase 3:25am 4:41am Creatine Kinase 1466 U/L #H* 20-180 08/24/2018 08/24/2018 Results have been broadcasted to patient's location and 3:32am 9:52am called to (Hermila MENA). By CARLOTTA BECKWITH 08/24/18 @0947 Results read back for confirmation. Troponin I < 0.30 ng/mL 0.0-0.5 08/21/2018 08/21/2018 Published clinical studies have shown elevations of cTnI in 5:34am 6:26am patients with myocardial injury, as seen in unstable angina pectoris, cardiac contusions, and heart transplants. Elevations have also been seen in patients with rhabdomyolysis and polymyositis. Elevated troponin levels point to myocardial injury, but are not necessarily indicative of an ischemic mechanism. The term CO should be used when there is evidence of cardiac damage, as detected by marker proteins in a clinical setting consistent with myocardial ischemia. If the clinical circumstance suggests that an ischemic mechanism is unlikely, other causes of cardiac injury should be considered. For diagnostic purposes, the results should always be assessed in conjunction with the patient's medical history, clinical examination and other findings. Creatine Kinase 58.0 ng/ml H* 0.0-3.6 08/21/2018 08/21/2018 RESULTS CALLED TO VAL[facility]E PHILLIPS 5:34am 6:26am DIAGNOSTIC CITERIA: CKMB CKMB RELATIVE INDEX SUGGESTIVE OF NON-AMI < or=5 N/A BALDWIN ZONE (INCONCLUSIVE) > 5 < or=4 SUGGESTIVE OF AMI >5 > 4 Microbiology Results Procedure Source Organism/Result Collection Result Result Status Date/Time Date/Time Blood Culture Blood SPECIMEN HAS BEEN 08/20/2018 08/20/2018 Preliminary RECEIVED IN LAB AND 6:31pm 6:38pm IS IN PROGRESS. Procedures Procedure Status Date Provider(s) PT EVAL MOD COMPLEX 30 MIN Completed 06/18/18 SELF CARE MNGMENT TRAINING Completed 06/18/18 SELF CARE MNGMENT TRAINING Completed 06/18/18 THERAPEUTIC EXERCISES Completed 06/18/18 SELF CARE MNGMENT TRAINING Completed 06/18/18 THERAPEUTIC EXERCISES Completed 06/18/18 CT SOFT TISSUE NECK W/DYE Completed 06/30/18 EMERGENCY DEPT VISIT Completed 07/11/18 CT MAXILLOFACIAL W/O DYE Completed 07/11/18 THER/PROPH/DIAG INJ IV PUSH Completed 07/11/18 TX/PRO/DX INJ NEW DRUG ADDON Completed 07/11/18 CT HEAD/BRAIN W/O DYE Completed 07/11/18 THER/PROPH/DIAG INJ SC/IM Completed 07/11/18 Completed 07/11/18 MORPHINE SULFATE INJECTION Completed 07/11/18 Computed tomography of neck with Completed 06/30/18 SABRINA CHRISTINE MD contrast Computed tomography of head without Completed 07/11/18 LEATHA IRVING MD contrast Computed tomography of facial bones and Completed 07/11/18 LEATHA IRVING MD paranasal sinuses without contrast X-ray of chest, single view Completed 08/19/18 TIFFANIE CAZARES Computed tomography angiography of chest Completed 08/19/18 TIFFANIE CAZARES for pulmonary embolism X-ray of abdomen, two views Completed 08/20/18 WILBER FERRARI MD X-ray of abdomen, two views Completed 08/23/18 WILBER FERRARI MD Encounters Encounter Location Arrival/Admit Date Discharge/Depart Date Attending Provider Discharged [place] 08/19/18 9:07pm 08/24/18 6:46pm DAVIN SHARMA, [facility] Departed [place] 07/11/18 5:48pm 07/11/18 9:20pm LEATHA IRVING Emergency Room [facility] Discharged [place] 07/02/18 8:06am 07/29/18 11:59pm ELEAZAR BARNEY [facility] Registered [place] 06/30/18 8:06am [facility] SABRINA Delgado MD [facility] Discharged [place] 06/18/18 9:12am 06/28/18 11:59pm ELEAZAR BARNEY [facility] Recent Diagnosis Pericardial effusion Acute gastritis Nausea & vomiting
--- OUTSIDE RECORDS SUMMARY | 2019-08-21 05:49 | XMS REPORT | Continuity of Care Document ---
:1965 Author Organization [facility] Address [address] [place] [address] Phone Unavailable Care Team Providers Name Role Phone HONEY CUELLAR MD Primary Care Physician Insurance Providers Guarantor Walter Tiwari Address [address] [place] [address] Email [email or web address] Payer [facility] Policy Number [id number] Subscriber's Name Jovani Tiwari Relationship Spouse Group Number [id number] Group Name NA Advance Directives Directive Response Recorded Date/Time Advance Directives No 09/23/15 11:34pm Advance Directive on File No 07/11/18 5:57pm Directive to Physicians/Living Will No 09/23/15 11:34pm Health Care Proxy No 09/23/15 11:34pm Name of Surrogate/Decision Maker NA 07/11/18 5:55pm Organ Donor No 09/23/15 11:34pm Medical Power of Analysis Tester No 09/23/15 11:34pm Patient/Family Given Education Material R/T Y - KR..07/11/18 07/11/18 5: 57pm Directives? Chief Complaint and Reason for Visit Chief Complaint Trauma Reason for Visit [id number] Minor head injury without loss of consciousness [...] Plan of Care Discharge Date 07/11/18 9:20pm Disposition PATIENT DISCHARGE HOME OR SELF Instructions/Education Provided Fall Prevention in the Home, Gtsx-hp-[id number] Eye Contusion, Ckpq-pq-[id number] Head Injury, Adult, Dece-fp-Lxty Forms Provided Portal Welcome Letter Prescriptions See Medication Section Referrals HONEY CUELLAR MD Address: [address] [place] [id number] Additional Instructions/Education HEAD INJURY INSTRUCTIONS GIVEN. ICE PACKS TO THE AREA. NAPROXEN 500 MG AND TYLENOL # 3 DIRECTED. F/U WITH PMD ON FRIDAY. RETURN PER HEAD INJURY INSTRUCTIONS. Functional Status No functional status information available. Allergies, Adverse Reactions, Alerts Allergen Type Severity Reaction Status Last Updated Sulfamethoxazole w/Trimethoprim Allergy Severe Active 07/24/17 ([id number]) Immunizations No immunization information available. Vital Signs [...] Mass Index 21.3 kg/m^2 07/11/2018 5:57pm Results No relevant diagnostic test, laboratory data and/or discharge summary information available. Procedures Procedure Status Date Provider(s) PT EVAL [...] Completed 07/11/18 Computed tomography of neck with contrast Completed 06/30/18 SABRINA CHRISTINE MD Computed tomography of head without Completed 07/11/18 LEATHA IRVING MD contrast Computed tomography of facial bones and Completed 07/11/18 LEATHA IRVING MD paranasal sinuses without contrast Encounters Encounter Location Arrival/Admit Date Discharge/Depart Date Attending Provider Departed [place] 07/11/18 5:48pm 07/11/18 9:20pm LEAT[facility] IRV[facility] Discharged [place] 07/02/18 8:06am 07/29/18 11:59pm [facility] Registered [place] 06/30/18 8:06am [facility] SABRINA Delgado MD [facility]tr Discharged [place] 06/18/18 9:12am 06/28/18 11:59pm [facility] Recent Diagnosis
--- OUTSIDE RECORDS SUMMARY | 2019-08-21 05:49 | XMS REPORT | Continuity of Care Document ---
:1965 Author Organization [facility] Address [address] [place] [address] Phone Unavailable Care Team Providers Name Role Phone HONEY CUELLAR MD Primary Care Physician Insurance Providers Guarantor Walter Maza Address [address] [place] [address] Email [email or web address] Payer [employer] Policy Number [id number] Subscriber's Name Jovani Maza Relationship Spouse Group Number [id number] Group Name NA Advance Directives Directive Response Recorded Date/Time Advance Directives No 09/23/15 11:34pm Advance Directive on File No 09/07/18 2:03am Directive to Physicians/Living Will No 09/23/15 11:34pm Health Care Proxy No 09/23/15 11:34pm Organ Donor No 09/23/15 11:34pm Medical Power of Aircraft Power Plant Assembler No 09/23/15 11:34pm Patient/Family Given Education Material R/T Y - 09/07/18...MK 09/07/18 2: 30am Directives? Chief Complaint and Reason for Visit Chief Complaint Chest Pain Reason for Visit Malaise Upper GI bleed Nausea & vomiting Small bowel obstruction Chest pain Problems Medical Problem Onset Date Status Abdominal [...] Acute Lupus Unknown Acute Lupus Unknown Acute Malaise Unknown Acute Minor head injury without loss of consciousness Unknown Acute Myositis Unknown Acute Pedal edema Unknown Acute Pericardial effusion Unknown Acute Periorbital contusion Unknown Acute Rhabdomyolysis Unknown Acute Rhabdomyolysis Unknown Acute Rhabdomyolysis Unknown Acute Small bowel obstruction Unknown Acute UTI (urinary tract infection) Unknown Acute Upper GI bleed Unknown Acute Medications Current Home Medications Medication [...] Onset Date Status Hx Physical Abuse No 09/07/2018 2:03am Not Applicable Not Applicable Smoking Status Start Date Stop Date Never smoker Hospital Discharge Instructions No hospital discharge instruction information available. Plan of Care Discharge Date 09/07/18 8:40am Forms Provided Portal Welcome Letter Prescriptions See Medication Section Referrals HONEY CUELLAR MD Address: [address] [place] [address] [place] [id number] Additional Instructions/Education TRANSFER TO [facility] [place] [place] UNDER DR LOPEZ NOTE NO BEDS - NOW DR PEREZ HAS ACCEPTED AT [facility] NOW [facility] DR ZHOU HAS ACCEPTED Functional Status No functional status information available. Allergies, Adverse Reactions, Alerts Allergen Type Severity Reaction Status Last Updated Sulfamethoxazole w/Trimethoprim Allergy Severe Active 07/24/17 ([id number]) Immunizations No immunization information available. Vital Signs Acute Vital Signs Vital Response Date/Time Blood Pressure 102/56 mm Hg 09/07/2018 9:11am Pulse Pulse Rate (adult) 110 beats per minute (60 - 100) 09/07/2018 9:11am Respiratory Rate 21 breaths per minute (10 - 24) 09/07/2018 9:11am Temperature Source Axillary 09/07/2018 9:11am Height 5 ft 6 in 09/07/2018 2:03am Weight 124 lb 09/07/2018 2:03am Body Mass Index 20.0 kg/m^2 09/07/2018 2:03am Results Laboratory Results Test Name Result Units Flags Reference Collection Result Comments Date/Time Date/Time D-Dimer 1371 ng/mL H* <500 08/21/2018 08/21/2018 Results have been broadcasted to patient's location and 5:34am 5:56am called to (VALENTE). By JAIME OBRIEN 08/21/18 @0555 Urine Color YELLOW 08/24/2018 08/24/2018 11:30am 12:42pm Urine Appearance CLEAR CLEAR 08/24/2018 08/24/2018 11:30am 12:42pm Urine Glucose NEGATIVE NEGATIVE 08/24/2018 08/24/2018 11:30am 12:42pm Urine Bilirubin NEGATIVE NEGATIVE 08/24/2018 08/24/2018 11:30am 12:42pm Urine Ketones NEGATIVE NEGATIVE 08/24/2018 08/24/2018 11:30am 12:42pm Urine Specific 1.024 1.003-1.03 08/24/2018 08/24/2018 [place] 0 11:30am 12:42pm Urine Blood NEGATIVE NEGATIVE [...] 08/20/2018 08/20/2018 Blood Glucose 6:00pm 6:23pm (Chem) FW-Dxp-Q-Type 2886 pg/mL H 0-125 08/24/2018 08/24/2018 Natriuretic 3:32am 9:52am Peptide White Blood 8.6 K/ul 4.0-11.5 09/07/2018 09/07/2018 Count 2:32am 2:44am Red Blood Count 4.78 M/ul 3.80-5.20 09/07/2018 09/07/2018 2:32am 2:44am Hemoglobin 12.0 g/dl 10.5-15.7 09/07/2018 09/07/2018 2:32am 2:44am Hematocrit 38.0 % # 34.0-50.0 09/07/2018 09/07/2018 2:32am 2:44am Mean Corpuscular 79.5 fl 78-98 09/07/2018 09/07/2018 Volume 2:32am 2:44am Mean Corpuscular 25.0 pg L 26.2-33.4 09/07/2018 09/07/2018 Hemoglobin 2:32am 2:44am Mean Corpuscular 31.5 g/dl 31.5-36.2 09/07/2018 09/07/2018 Hemoglobin 2:32am 2:44am Concent Red Cell 16.3 % H 11.5-15.5 09/07/2018 09/07/2018 Distribution 2:32am 2:44am Width Platelet Count 210 K/ul 137-338 09/07/2018 09/07/2018 2:32am 2:44am Mean Platelet 6.2 fl L 8.4-11.8 09/07/2018 09/07/2018 Volume 2:32am 2:44am Neutrophils (%) 85.0 % H 44.4-80.1 09/07/2018 09/07/2018 (Auto) 2:32am 2:44am Lymphocytes (%) 5.9 % L 10.0-50.0 09/07/2018 09/07/2018 (Auto) 2:32am 2:44am Monocytes (%) 8.1 % 3.6-12.04 09/07/2018 09/07/2018 (Auto) 2:32am 2:44am Eosinophils (%) 0.2 % 0.0-5.41 09/07/2018 09/07/2018 (Auto) 2:32am 2:44am Basophils (%) 0.8 % H 0.0-0.79 09/07/2018 09/07/2018 (Auto) 2:32am 2:44am Prothrombin Time 10.7 SECONDS 10.3-12.3 09/07/2018 09/07/2018 5:13am 5:51am THERAPEUTIC LEVEL: 1.5 to 1.9 times normal range of PT Prothromb Time 0.97 09/07/2018 09/07/2018 International 5:13am 5:51am Recommended therapeutic range for patients receiving Ratio warfarin (coumadin) therapy: INR is 2.0 to 3.0 Recommended range for patients with mechanical prosthetic heart valves: INR is 2.5 to 3.5 Activated 26.6 SECONDS 22.5-37.0 09/07/2018 09/07/2018 Partial 5:13am 5:51am Thromboplast Time Lactic Acid 2.53 mmoL/L H 0.5-2.2 09/07/2018 09/07/2018 Results have been broadcasted to patient's location and Level 2:32am 3:00am called to (MEGAN). By JAIME OBRIEN 09/07/18 @0300 Results read back for confirmation. Random Glucose 110 mg/dL H 74-106 09/07/2018 09/07/2018 2:32am 3:16am Blood Urea 18 mg/dL 6-20 09/07/2018 09/07/2018 Nitrogen 2:32am 3:16am Serum Osmolality 278 L 280-300 09/07/2018 09/07/2018 2:32am 3:16am Creatinine 0.3 mg/dL L 0.50-0.90 09/07/2018 09/07/2018 2:32am 3:16am Glomerular > 60.00 09/07/2018 09/07/2018 GFR RESULTS ARE REPORTED IN mL/min/1.73m2. Filtration Rate 2:32am 3:16am Calc Normal GFR: >60mL/min Moderately decreased GFR: 30-59 mL/min Severely decreased GFR: 15-29 mL/min Kidney Failure (or Dialysis): <15 mL/min The calculated eGFR is not valid for patients younger than 18 years or older than 75 years. BUN/Creatinine 60.0 H 12-09/07/2018 09/07/2018 Ratio 2:32am 3:16am Sodium Level 138 mmol/L 135-145 09/07/2018 09/07/2018 2:32am 3:16am Potassium Level 3.8 mmol/L 3.5-5.2 09/07/2018 09/07/2018 2:32am 3:16am Chloride Level 99 mmol/L 98-108 09/07/2018 09/07/2018 2:32am 3:16am Carbon Dioxide 25 mmol/L 21-32 09/07/2018 09/07/2018 Level 2:32am 3:16am Anion Gap 17.8 mEq/L -09/07/2018 09/07/2018 2:32am 3:16am Calcium Level 9.6 mg/dL 8.6-10.0 09/07/2018 09/07/2018 2:32am 3:16am Total Protein 8.0 g/dL 6.6-8.7 09/07/2018 09/07/2018 2:32am 3:16am Albumin 4.5 g/dL 3.5-5.2 09/07/2018 09/07/2018 2:32am 3:16am Globulin 3.5 gm/dL 09/07/2018 09/07/2018 2:32am 3:16am Albumin/Globulin 1.3 >1.0 09/07/2018 09/07/2018 Ratio 2:32am 3:16am Total Bilirubin 1.0 mg/dL 0.0-1.2 09/07/2018 09/07/2018 2:32am 3:16am Aspartate Amino 99 U/L H 15-32 09/07/2018 09/07/2018 Transf 2:32am 3:16am (AST/SGOT) Alanine 82 U/L H 0-33 09/07/2018 09/07/2018 Aminotransferase 2:32am 3:16am (ALT/SGPT) Lipase 31 U/L 13-60 09/07/2018 09/07/2018 2:32am 3:16am Total Alkaline 61 U/L 35-105 09/07/2018 09/07/2018 Phosphatase 2:32am 3:16am Creatine Kinase 1790 U/L H* 20-180 09/07/2018 09/07/2018 Results have been broadcasted to patient's location and 2:32am 3:16am called to (MEGAN). By JAIME OBRIEN 09/07/18 @0315 Results read back for confirmation. Troponin I < 0.30 ng/mL 0.0-0.5 09/07/2018 09/07/2018 Published clinical studies have shown elevations of cTnI in 2:32am 3:16am patients with myocardial injury, as seen in unstable angina pectoris, cardiac contusions, and heart transplants. Elevations have also been seen in patients with rhabdomyolysis and polymyositis. Elevated troponin levels point to myocardial injury, but are not necessarily indicative of an ischemic mechanism. The term MO should be used when there is evidence [...] clinical examination and other findings. Creatine Kinase 58.6 ng/ml H* 0.0-3.6 09/07/2018 09/07/2018 RESULTS CALLED TO MEGAN PHILLIPS 2:32am 3:16am DIAGNOSTIC CITERIA: CKMB CKMB RELATIVE INDEX SUGGESTIVE OF NON-AMI < or=5 N/A BALDWIN ZONE (INCONCLUSIVE) > 5 < or=4 SUGGESTIVE OF AMI >5 > 4 Myoglobin 869 ng/mL H 25-58 09/07/2018 09/07/2018 2:32am 3:04am Pending Laboratory Results Test Name Collection Date/Time Urine Color 09/07/2018 2:14am Urine Appearance 09/07/2018 2:14am Urine Glucose 09/07/2018 2:14am Urine Bilirubin 09/07/2018 2:14am Urine Ketones 09/07/2018 2:14am Urine Specific [place] 09/07/2018 2:14am Urine Blood 09/07/2018 2:14am Urine pH 09/07/2018 2:14am Urine Protein 09/07/2018 2:14am Urine Urobilinogen 09/07/2018 2:14am Urine Nitrate 09/07/2018 2:14am Urine Leukocyte Esterase 09/07/2018 2:14am Urine RBC 09/07/2018 2:14am Urine WBC 09/07/2018 2:14am Urine Bacteria 09/07/2018 2:14am Urine Culture Reflexed 09/07/2018 2:14am Microbiology Results Procedure Source Organism/Result Collection Result Result Status Date/Time Date/Time Blood Culture Blood SPECIMEN HAS BEEN 09/07/2018 09/07/2018 Preliminary RECEIVED IN LAB AND 2:32am 2:37am IS IN PROGRESS. Procedures Procedure Status Date Provider(s) EMERGENCY DEPT VISIT Completed 07/11/18 CT MAXILLOFACIAL W/O DYE Completed 07/11/18 THER/PROPH/DIAG INJ IV PUSH Completed 07/11/18 [place]/PRO/DX INJ NEW DRUG ADDON Completed 07/11/18 CT HEAD/BRAIN W/O DYE Completed 07/11/18 THER/PROPH/DIAG INJ SC/IM Completed 07/11/18 Completed 07/11/18 MORPHINE SULFATE INJECTION Completed 07/11/18 Computed tomography of head without Completed 07/11/18 LEATHA IRVING MD contrast Computed tomography of facial bones and Completed 07/11/18 LEATHA IRVING MD paranasal sinuses without contrast X-ray of chest, single view Completed 08/19/18 TIFFANIE CAZARES ACNP Computed tomography angiography of chest Completed 08/19/18 TIFFANIE CAZARES ACNP for pulmonary embolism X-ray of abdomen, two views Completed 08/20/18 WILBER FERRARI MD X-ray of abdomen, two views Completed 08/23/18 WILBER FERRARI MD Computed tomography of abdomen and Completed 09/07/18 NELLY VENCES MD pelvis with contrast Encounters Encounter Location Arrival/Admit Date Discharge/Depart Date Attending Provider Departed [place] 09/07/18 1:59am 09/07/18 8:40am NELLY [facility] Discharged [place] 08/19/18 9:07pm 08/24/18 6:46pm DAVIN SHARMA, Inpatient [facility] EVER Chavez MD Medical Ctr Departed [place] 07/11/18 5:48pm 07/11/18 9:20pm LEATHA IRVING [facility] Discharged [place] 07/02/18 8:06am 07/29/18 11:59pm ELEAZAR BARNEY [facility] Medical C[facility] Recent Diagnosis
--- OUTSIDE RECORDS SUMMARY | 2019-08-21 05:50 | XMS REPORT | Continuity of Care Document ---
:1965 Author Organization [facility] Address [address] [place] [address] Phone Unavailable Care Team Providers Name Role Phone HONEY CUELLAR MD Primary Care Physician Insurance Providers Guarantor Walter Tiwari Address [address] [place] [address] Email [email or web address] [facility] Policy Number [id number] Subscriber's Name Jovani Tiwari Relationship Spouse Group Number [id number] Group Name NA Advance Directives Directive Response Recorded Date/Time Advance Directives No 09/23/15 11:34pm Directive to Physicians/Living Will No 09/23/15 11:34pm Health Care Proxy No 09/23/15 11:34pm Organ Donor No 09/23/15 11:34pm Medical Power of Parts Designer No 09/23/15 11:34pm Patient/Family Given Education Material R/T Directives? Yes 10/14/18 12:50pm Problems Medical Problem Onset Date Status Abdominal [...] Right shoulder pain Unknown Scleroderma Unknown Chronic Systemic lupus erythematosus Unknown UTI (urinary tract infection) Unknown Acute Vomiting Unknown Acute Weakness Unknown Weakness generalized Unknown Past Problems Medical Problem Onset Date [...] Directions Days Qty Instructions Start Date Cefdinir (Omnicef*) 1 Cap ORAL Twice A Day for [...] Past Home Medications Medication Directions Ordered Status Amoxicillin/Clavulanate Every 12 Hours for Prn 07/24/17 Discontinued Potassium (Augmentin Es-600MG Susp *) 1 Ml Lynette, [...] Updated Sulfamethoxazole w/Trimethoprim Allergy Severe Active 07/24/17 ([id number]) Immunizations No immunization information available. Vital Signs Acute Vital Signs Vital Response Date/Time Blood Pressure 102/56 mm Hg 09/07/2018 9:11am Pulse Pulse Rate (adult) 110 beats per minute (60 - 100) 09/07/2018 9:11am Respiratory Rate 21 breaths per minute (10 - 24) 09/07/2018 9:11am Temperature Source Axillary 09/07/2018 9:11am Results Laboratory Results Test Name Result Units Flags Reference Collection Result Comments Date/Time Date/Time White Blood Count 8.6 K/ul 4.0-11.5 09/07/2018 09/07/2018 2:32am 2:44am Red Blood Count 4.78 M/ul 3.80-5.20 09/07/2018 09/07/2018 2:32am 2:44am Hemoglobin 12.0 g/dl 10.5-15.7 09/07/2018 09/07/2018 2:32am 2:44am Hematocrit 38.0 % # 34.0-50.0 09/07/2018 09/07/2018 2:32am 2:44am Mean Corpuscular 79.5 fl 78-98 09/07/2018 09/07/2018 Volume 2:32am 2:44am Mean Corpuscular 25.0 pg L 26.2-33.4 09/07/2018 09/07/2018 Hemoglobin 2:32am 2:44am Mean Corpuscular 31.5 g/dl 31.5-36.2 09/07/2018 09/07/2018 Hemoglobin Concent 2:32am 2:44am Red Cell 16.3 % H 11.5-15.5 09/07/2018 09/07/2018 Distribution Width 2:32am 2:44am Platelet Count 210 K/ul 137-338 09/07/2018 09/07/2018 [...] valves: INR is 2.5 to 3.5 Activated Partial 26.6 SECONDS 22.5-37.0 09/07/2018 09/07/2018 Thromboplast Time 5:13am 5:51am Lactic Acid Level 2.53 mmoL/L H 0.5-2.2 09/07/2018 09/07/2018 Results have been broadcasted to patient's location and 2:32am 3:00am called to (MEGAN). By JAIME [...] older than 75 years. BUN/Creatinine 60.0 H 12-20 09/07/2018 09/07/2018 Ratio 2:32am 3:16am Sodium Level 138 mmol/L 135-145 09/07/2018 09/07/2018 2:32am 3:16am Potassium Level 3.8 mmol/L 3.5-5.2 09/07/2018 09/07/2018 2:32am 3:16am Chloride Level 99 mmol/L 98-108 09/07/2018 09/07/2018 2:32am 3:16am Carbon Dioxide 25 mmol/L 21-32 09/07/2018 09/07/2018 Level 2:32am 3:16am Anion Gap 17.8 mEq/L 09-1709/07/2018 09/07/2018 2:32am 3:16am Calcium Level 9.6 mg/dL 8.6-10.0 09/07/2018 09/07/2018 2:32am 3:16am Total Protein 8.0 g/dL 6.6-8.7 09/07/2018 09/07/2018 2:32am 3:16am Albumin 4.5 g/dL 3.5-5.2 09/07/2018 09/07/2018 2:32am 3:16am Globulin 3.5 gm/dL 09/07/2018 09/07/2018 2:32am 3:16am Albumin/Globulin 1.3 >1.0 09/07/2018 09/07/2018 Ratio 2:32am 3:16am Total Bilirubin 1.0 mg/dL 0.0-1.2 09/07/2018 09/07/2018 2:32am 3:16am Aspartate Amino 99 U/L H 15-32 09/07/2018 09/07/2018 Transf (AST/SGOT) 2:32am 3:16am Alanine 82 U/L H 0-33 09/07/2018 09/07/2018 [...] indicative of an ischemic mechanism. The term MT should be used when there is evidence [...] clinical examination and other findings. Creatine Kinase MB 58.6 ng/ml H* 0.0-3.6 09/07/2018 09/07/2018 RESULTS CALLED TO MEGAN 2:32am 3:16am DIAGNOSTIC CITERIA: CKMB CKMB RELATIVE INDEX SUGGESTIVE OF NON-AMI < or=5 N/A BALDWIN ZONE (INCONCLUSIVE) > 5 < or=4 SUGGESTIVE OF AMI >5 > 4 Myoglobin 869 ng/mL H 25-58 09/07/2018 09/07/2018 2:32am 3:04am Microbiology Results Procedure Source Organism/Result Collection Result Date/Time Result Status Date/Time Blood Culture Blood FINAL REPORT. 09/07/2018 2:32am 09/07/2018 2:37am Final Procedures Procedure Status Date Provider(s) EMERGENCY DEPT VISIT Completed 09/07/18 CT ABD & PELV W/CONTRAST Completed 09/07/18 TX/PRO/DX INJ NEW DRUG ADDON Completed 09/07/18 THER/PROPH/DIAG IV INF INIT Completed 09/07/18 HYDRATE IV INFUSION ADD-ON Completed 09/07/18 COMPLETE CBC W/AUTO DIFF WBC Completed 09/07/18 CREATINE MB FRACTION Completed 09/07/18 ASSAY OF CK (CPK) Completed 09/07/18 BLOOD CULTURE FOR BACTERIA Completed 09/07/18 BLOOD CULTURE FOR BACTERIA Completed 09/07/18 ASSAY OF LACTIC ACID Completed 09/07/18 ASSAY OF LIPASE Completed 09/07/18 ASSAY OF MYOGLOBIN Completed 09/07/18 PROTHROMBIN TIME Completed 09/07/18 THROMBOPLASTIN TIME PARTIAL Completed 09/07/18 ROUTINE VENIPUNCTURE Completed 09/07/18 ASSAY OF TROPONIN QUANT Completed 09/07/18 COMPREHEN METABOLIC PANEL Completed 09/07/18 OCCULT BLOOD OTHER SOURCES Completed 09/07/18 [place]/PRO/DX INJ SAME DRUG STAFFING BRANCH MANAGER Completed 09/07/18 ELECTROCARDIOGRAM TRACING Completed 09/07/18 Completed 09/07/18 MORPHINE SULFATE INJECTION Completed 09/07/18 MORPHINE SULFATE INJECTION Completed 09/07/18 Computed tomography of abdomen and pelvis with Completed 09/07/18 NELLY VENCES MD contrast Encounters Encounter Location Arrival/Admit Date Discharge/Depart Date Attending Provider Discharged [place] 10/29/18 11:00am 10/29/18 11:59pm Ch[facility]el C[facility]LLAR [facility] Departed [place] 09/07/18 1:59am 09/07/18 8:40am NELLY VENCES [facility] Recent Diagnosis Systemic lupus erythematosus Weakness generalized
--- OUTSIDE RECORDS SUMMARY | 2019-08-21 05:50 | XMS REPORT | Continuity of Care Document ---
:1965 Author Organization [facility] Address [address] [place] [address] Phone Unavailable Care Team Providers Name Role Phone HONEY CUELLAR MD Primary Care Physician Insurance Providers Guarantor Walter Tiwari Address [address] [place] [address] Email [email or web address] Payer [facility] Policy Number [id number] Subscriber's Name Jovani Tiwari Relationship Spouse Group Number [id number] Group Name NA Advance Directives Directive Response Recorded Date/Time Advance Directives No 09/23/15 11:34pm Directive to Physicians/Living Will No 09/23/15 11:34pm Health Care Proxy No 09/23/15 11:34pm Organ Donor No 09/23/15 11:34pm Medical Power of Regulatory Affairs Associate No 09/23/15 11:34pm Patient/Family Given Education Material R/T Directives? No 11/03/18 5:47am Problems Medical Problem Onset Date Status Abdominal [...] 30 3 PO DAILY X 08/24/ (Prednisone *) 20 Immunosuppressants Tablet 4 DAYS; 2 PO 18 Mg Tab DAILY X 4 DAYS; 1 [...] Discontinued Tab, 1 Tab Oral N/V Pantoprazole Sodium (Protonix Ec Daily Discontinued *) 40 Mg Tab, 40 Mg Oral Potassium Chloride (Kcl Oral Daily for Hypokalemia 07/24/17 Discontinued Soln 20% *) 20 % Liq, 20 Meq Oral Prednisone (Prednisone *) 1 Mg Daily Discontinued Tab, 5 Mg Oral Prednisone (Prednisone *) 20 Mg Daily for Scleroderma 09/17/17 Discontinued Tab, 20 Mg Oral Prednisone (Prednisone *) 2.5 Mg Daily Discontinued Tab, 5 Mg Oral Prednisone (Prednisone *) 20 Mg Daily for Lupus/Inflammation 07/18/17 Discontinued Tab, 40 Mg Oral Valsartan (Diovan 160 [...] Updated Sulfamethoxazole w/Trimethoprim Allergy Severe Active 07/24/17 ([id number]) Immunizations No immunization information available. Vital Signs No vital sign information available. Results No relevant diagnostic test, laboratory data and/or discharge summary information available. Procedures Procedure Status Date Provider(s) PT EVAL MOD COMPLEX 30 MIN Completed 10/14/18 THERAPEUTIC EXERCISES Completed 10/14/18 THERAPEUTIC ACTIVITIES Completed 10/14/18 THERAPEUTIC EXERCISES Completed 10/14/18 THERAPEUTIC EXERCISES Completed 10/14/18 Encounters Encounter Location Arrival/Admit Date Discharge/Depart Date Attending Provider Discharged [place] 11/03/18 5:48am 11/26/18 11:59pm Chantel CUELLAR MD [facility] Discharged [place] 10/14/18 12:59pm 10/29/18 11:59pm Chantel CUELLAR [facility] Recent Diagnosis Systemic lupus erythematosus Weakness generalized
--- OUTSIDE RECORDS SUMMARY | 2019-08-21 05:50 | XMS REPORT | Continuity of Care Document ---
:1965 Author Organization [facility] Address [address] [place] [address] Phone Unavailable Care Team Providers Name Role Phone HONEY CUELLAR MD Primary Care Physician Insurance Providers Guarantor Walter Tiwari Address [address] [place] [address] Email [email or web address] [facility] Policy Number [id number] Subscriber's Name Jovani Tiwari Relationship Spouse Group Number [id number] Group Name [id number] Effective Date 15 Advance Directives Directive Response Recorded Date/Time Advance Directives No 09/23/15 11:34pm Advance Directive on File No 05/09/19 5:49pm Directive to Physicians/Living Will No 09/23/15 11:34pm Health Care Proxy No 09/23/15 11:34pm Organ Donor No 09/23/15 11:34pm Medical Power of Director Of Audiology No 09/23/15 11:34pm Patient/Family Given Education Material R/T Directives? No 05/09/19 5:49pm Chief Complaint and Reason for Visit Chief Complaint ANEMIA, LUPUS Reason for Visit Scleroderma Rheumatoid arthritis Depression HTN (hypertension) CAD (coronary artery disease) Anxiety Systemic lupus erythematosus Weakness generalized Abdominal pain Rhabdomyolysis Problems Medical Problem Onset Date Status Abdominal [...] alone Unknown Acute Pericardial effusion Unknown Chronic Rhabdomyolysis Unknown Acute Rheumatoid arthritis Unknown Chronic Right shoulder pain Unknown Scleroderma Unknown Chronic Systemic lupus erythematosus Unknown Chronic UTI (urinary tract infection) Unknown Acute Vomiting Unknown Acute Weakness Unknown Weakness generalized Unknown Chronic Past Problems Medical Problem Onset Date Status Anemia Unknown Acute CHF (congestive heart failure) Unknown Acute CREST [...] Hypertension 07/18/17 Discontinued Tab, 1 Tab Oral Cefdinir (Omnicef*) 300 Mg Cap, Twice A Day for Pneumonia 08/24/18 Discontinued 1 Cap Oral Citalopram Hydrobromide * Discontinued (Citalopram Hydrobromide [...] Onset Date Status Hx Physical Abuse No 05/09/2019 5:55pm Not Applicable Not Applicable Smoking Status Start Date Stop Date Never smoker Hospital Discharge Instructions No hospital discharge instruction information available. Plan of Care Discharge Date 05/11/19 6:15pm Disposition PATIENT DISCHARGE HOME OR SELF Instructions/Education Provided Anemia Systemic Lupus Erythematosus, Adult Forms Provided Portal Welcome Letter Prescriptions See Medication Section Care Plan and Goals f/u outpatient with dr. taylor/surgeon for outpatient evaluation of chronic anemia. Functional Status No functional status information available. Allergies, Adverse Reactions, Alerts Allergen Type Severity Reaction Status Last Updated Sulfamethoxazole w/Trimethoprim Allergy Severe Active 07/24/17 ([id number]) Immunizations No immunization information available. Vital Signs Acute Vital Signs Vital Response Date/Time Blood Pressure 152/79 mm Hg 05/11/2019 3:40pm Pulse Pulse Rate (adult) 82 beats per minute (60 - 100) 05/11/2019 3:40pm Respiratory Rate 20 breaths per minute (10 - 24) 05/11/2019 3:22pm Temperature Source Oral 05/11/2019 11:30am Height 5 ft 6 in 05/09/2019 1:45pm Weight 118.56 lb 05/11/2019 4:27am Body Mass Index 19.1 kg/m^2 05/11/2019 4:27am Results Laboratory Results Test Name Result Units Flags Reference Collection Result Comments Date/Time Date/Time White Blood 6.2 K/ul 4.0-11.5 05/11/2019 05/11/2019 Count 4:16pm 4:25pm Red Blood 5.73 M/ul H 3.80-5.20 05/11/2019 05/11/2019 Count 4:16pm 4:25pm Hemoglobin 10.6 g/dL 10.5-15.7 05/11/2019 05/11/2019 4:16pm 4:25pm Hematocrit 36.9 % # 34.0-50.0 05/11/2019 05/11/2019 this @draw. 4:16pm 4:26pm Mean 64.4 fl L 86-100 05/11/2019 05/11/2019 Corpuscular 4:16pm 4:25pm Volume Mean 18.5 pg L 26.2-33.4 05/11/2019 05/11/2019 Corpuscular 4:16pm 4:25pm Hemoglobin Mean 28.7 g/dL L 30-34 05/11/2019 05/11/2019 Corpuscular 4:16pm 4:25pm Hemoglobin Concent Red Cell 29.5 % H 12.0-15.5 05/11/2019 05/11/2019 Distribution 4:16pm 4:25pm Width Platelet 313 K/uL 165-450 05/11/2019 05/11/2019 Count 4:16pm 4:25pm Neutrophils 75.3 % 44.4-80.1 05/11/2019 05/11/2019 (%) (Auto) 4:16pm 4:25pm Immature 0.2 % 0.0-0.4 05/11/2019 05/11/2019 Granulocyte 4:16pm 4:25pm % (Auto) Lymphocytes 10.5 % 10.0-50.0 05/11/2019 05/11/2019 (%) (Auto) 4:16pm 4:25pm Monocytes 12.4 % H 3.6-12.0 05/11/2019 05/11/2019 (%) (Auto) 4:16pm 4:25pm Eosinophils 1.1 % 0.0-5.4 05/11/2019 05/11/2019 (%) (Auto) 4:16pm 4:25pm Basophils 0.5 % 0.1-1.2 05/11/2019 05/11/2019 (%) (Auto) 4:16pm 4:25pm Neutrophils 4.69 K/uL 1.56-6.13 05/11/2019 05/11/2019 # (Auto) 4:16pm 4:25pm Absolute 0.0 K/uL 0.0-0.03 05/11/2019 05/11/2019 Immature 4:16pm 4:25pm Granulocyte (auto Lymphocytes 0.7 K/uL L 1.18-3.74 05/11/2019 05/11/2019 # (Auto) 4:16pm 4:25pm Monocytes # 0.77 K/uL 0.24-0.86 05/11/2019 05/11/2019 (Auto) 4:16pm 4:25pm Eosinophils 0.07 K/uL 0.04-0.36 05/11/2019 05/11/2019 # (Auto) 4:16pm 4:25pm Basophils # 0.03 K/uL 0.01-0.08 05/11/2019 05/11/2019 (Auto) 4:16pm 4:25pm Neutrophils 83 H 37.0-80.0 05/09/2019 05/09/2019 2:02pm 2:46pm Lymphocytes 15 10-50 05/09/2019 05/09/2019 (Manual) 2:02pm 2:46pm Atypical 1 H 0 05/09/2019 05/09/2019 Lymphocytes 2:02pm 2:46pm Monocytes 1 0-12 05/09/2019 05/09/2019 (Manual) 2:02pm 2:46pm Nucleated 0 /100 WBC 0-0.2 05/11/2019 05/11/2019 Red Blood 4:16pm 4:25pm Cells % Nucleated 0 K/uL 0 05/11/2019 05/11/2019 Red Blood 4:16pm 4:25pm Cells # N/A 2+ANISOCYTOS NORMAL 05/10/2019 05/10/2019 IS RBC. 1:18pm 2:02pm 2+HYPOCHROMA NORMAL 05/10/2019 05/10/2019 MILENA RBC. 1:18pm 2:02pm 2+MICROCYTOS NORMAL 05/10/2019 05/10/2019 IS RBC. 1:18pm 2:02pm 2+POIKILOCYT NORMAL 05/10/2019 05/10/2019 OSIS RBC. 1:18pm 2:02pm 1+SCHISTOCYT NORMAL 05/10/2019 05/10/2019 ES RBC. 1:18pm 2:02pm 1+TARGET NORMAL 05/10/2019 05/10/2019 CELLS RBC. 1:18pm 2:02pm Platelet ADEQUATE ADEQUATE 05/09/2019 05/09/2019 Estimate 2:02pm 2:46pm Abnormal NORMAL NORMAL 05/09/2019 05/09/2019 Platelet 2:02pm 2:46pm Morphology Hypochromasi 2+ H 05/09/2019 05/09/2019 a 2:02pm 2:46pm Anisocytosis 2+ H 05/09/2019 05/09/2019 2:02pm 2:46pm Microcytosis 2+ 05/09/2019 05/09/2019 2:02pm 2:46pm Spherocytes OCCASSIONAL H 05/09/2019 05/09/2019 2:02pm 2:46pm Target Cells 1+ H 05/09/2019 05/09/2019 2:02pm 2:46pm Ovalocytes 2+ H 05/09/2019 05/09/2019 2:02pm 2:46pm Acanthocytes 1+ H 05/09/2019 05/09/2019 2:02pm 2:46pm Absolute 0.6 % 0.6-2.6 05/09/2019 05/11/2019 Performed at: [facility] [place] Reticulocyte 7:40pm 7:18am [address] [place], [place] [id number] Count Wallpaper Scraper: Justice Adams MD, Phone: [phone] Iron Level 14 ug/dL L 37-145 05/09/2019 05/09/2019 2:40pm 7:45pm Total Iron 424 ug/dL 260-445 05/09/2019 05/09/2019 Binding 2:40pm 7:45pm Capacity Iron 3 % L 12-45 05/09/2019 05/09/2019 Saturation 2:40pm 7:45pm Vitamin B12 437.2 pg/mL 211-946 05/09/2019 05/09/2019 Level 2:40pm 8:02pm Folate 19.49 ng/mL 4.78-24.2 05/09/2019 05/09/2019 2:40pm 8:02pm Prothrombin 11.2 SECONDS 10.3-12.3 05/09/2019 05/09/2019 Time 2:40pm 3:03pm THERAPEUTIC LEVEL: 1.5 to 1.9 times normal range of PT Prothromb 1.02 05/09/2019 05/09/2019 Time 2:40pm 3:03pm Recommended therapeutic range for patients receiving Internationa warfarin (coumadin) therapy: INR is 2.0 to 3.0 l Ratio Recommended range for patients with mechanical prosthetic heart valves: INR is 2.5 to 3.5 Activated 27.1 SECONDS 22.5-37.0 05/09/2019 05/09/2019 Partial 2:40pm 3:03pm Thromboplast Time Urine Color YELLOW 05/09/2019 05/09/2019 3:08pm 3:15pm Urine CLEAR CLEAR 05/09/2019 05/09/2019 Appearance 3:08pm 3:15pm Urine NEGATIVE NEGATIVE 05/09/2019 05/09/2019 Glucose (UA) 3:08pm 3:15pm Urine NEGATIVE NEGATIVE 05/09/2019 05/09/2019 Bilirubin 3:08pm 3:15pm Urine NEGATIVE NEGATIVE 05/09/2019 05/09/2019 Ketones 3:08pm 3:15pm Urine 1.014 1.003-1.03 05/09/2019 05/09/2019 Specific 0 3:08pm 3:15pm [place] Urine Blood NEGATIVE NEGATIVE 05/09/2019 05/09/2019 3:08pm 3:15pm Urine pH 7.000 5-9 05/09/2019 05/09/2019 3:08pm 3:15pm Urine TRACE NEGATIVE 05/09/2019 05/09/2019 Protein 3:08pm 3:15pm Urine NORMAL mg/dL 0.2-1.0 05/09/2019 05/09/2019 Urobilinogen 3:08pm 3:15pm Urine NEGATIVE NEGATIVE 05/09/2019 05/09/2019 Nitrate 3:08pm 3:15pm Urine NEGATIVE NEGATIVE 05/09/2019 05/09/2019 Leukocyte 3:08pm 3:15pm Esterase Urine RBC <1 /hpf 0-5 05/09/2019 05/09/2019 3:08pm 3:25pm Urine WBC 1-5 /hpf 0-5 05/09/2019 05/09/2019 3:08pm 3:25pm Urine 20-29 /hpf 0-5 05/09/2019 05/09/2019 Epithelial 3:08pm 3:25pm Cells Urine TRACE /hpf None 05/09/2019 05/09/2019 Bacteria Detect 3:08pm 3:25pm Urine NO 05/09/2019 05/09/2019 Culture 3:08pm 3:25pm Reflexed Urine Mucus 1+ /lpf None 05/09/2019 05/09/2019 Detect 3:08pm 3:25pm POC 90 mg/dL 70 - 110 05/10/2019 05/10/2019 Capillary 9:10pm 9:11pm Blood Glucose (Chem) Random 98 mg/dL 74-106 05/11/2019 05/11/2019 Glucose 4:16pm 4:50pm Blood Urea 10 mg/dL 6-20 05/11/2019 05/11/2019 Nitrogen 4:16pm 4:50pm Serum 277 L 280-300 05/11/2019 05/11/2019 Osmolality 4:16pm 4:50pm Creatinine 0.3 mg/dL L 0.50-0.90 05/11/2019 05/11/2019 4:16pm 4:50pm Glomerular > 60.00 05/11/2019 05/11/2019 GFR RESULTS ARE REPORTED IN mL/min/1.73m2. Filtration 4:16pm 4:50pm Rate Calc Normal GFR: >60mL/min Moderately decreased GFR: 30-59 mL/min Severely decreased GFR: 15-29 mL/min Kidney Failure (or Dialysis): <15 mL/min The calculated eGFR is not valid for patients younger than 18 years or older than 75 years. BUN/Creatini 33.3 H 12-05/11/2019 05/11/2019 ne Ratio 4:16pm 4:50pm Sodium Level 139 mmol/L 135-145 05/11/2019 05/11/2019 4:16pm 4:50pm Potassium 3.3 mmol/L L 3.5-5.2 05/11/2019 05/11/2019 Level 4:16pm 4:50pm Chloride 100 mmol/L 98-108 05/11/2019 05/11/2019 Level 4:16pm 4:50pm Carbon 26 mmol/L 21-32 05/11/2019 05/11/2019 Dioxide 4:16pm 4:50pm Level Anion Gap 16.3 mEq/L 09-1705/11/2019 05/11/2019 4:16pm 4:50pm Calcium 9.6 mg/dL 8.6-10.0 05/11/2019 05/11/2019 Level 4:16pm 4:50pm Total 8.5 g/dL 6.6-8.7 05/11/2019 05/11/2019 Protein 4:16pm 4:50pm Albumin 4.4 g/dL 3.5-5.2 05/11/2019 05/11/2019 4:16pm 4:50pm Globulin 4.1 gm/dL 05/11/2019 05/11/2019 4:16pm 4:50pm Albumin/Glob 1.1 >1.0 05/11/2019 05/11/2019 ulin Ratio 4:16pm 4:50pm Total 1.0 mg/dL 0.0-1.2 05/11/2019 05/11/2019 Bilirubin 4:16pm 4:50pm Aspartate 78 U/L #H 15-32 05/11/2019 05/11/2019 Amino Transf 4:16pm 4:50pm (AST/SGOT) Alanine 58 U/L H 0-33 05/11/2019 05/11/2019 Aminotransfe 4:16pm 4:50pm rase (ALT/SGPT) YS-Okr-Z-Typ 824 pg/mL H 0-125 05/11/2019 05/11/2019 e 4:16pm 4:50pm Natriuretic Peptide Total 123 U/L H 35-105 05/11/2019 05/11/2019 Alkaline 4:16pm 4:50pm Phosphatase Urine NEGATIVE NG/ML NEGATIVE 05/09/2019 05/09/2019 Amphetamines 3:08pm 3:25pm Screen Urine NEGATIVE NG/ML NEGATIVE 05/09/2019 05/09/2019 Barbiturates 3:08pm 3:25pm , Quantitative Urine NEGATIVE NG/ML NEGATIVE 05/09/2019 05/09/2019 Benzodiazepi 3:08pm 3:25pm kendall Screen Urine NEGATIVE NG/ML NEGATIVE 05/09/2019 05/09/2019 Cannabinoids 3:08pm 3:25pm Urine NEGATIVE NG/ML NEGATIVE 05/09/2019 05/09/2019 Cocaine 3:08pm 3:25pm Metabolite Urine NEGATIVE NG/ML NEGATIVE 05/09/2019 05/09/2019 Opiates 3:08pm 3:25pm Screen Urine NEGATIVE NG/ML NEGATIVE 05/09/2019 05/09/2019 Phencyclidin 3:08pm 3:25pm e (PCP) Level Methadone NEGATIVE NG/ML NEGATIVE 05/09/2019 05/09/2019 Level 3:08pm 3:25pm Propoxyphene NEGATIVE NG/ML NEGATIVE 05/09/2019 05/09/2019 Level 3:08pm 3:25pm Oxycodone NEGATIVE NG/ML NEGATIVE 05/09/2019 05/09/2019 Level 3:08pm 3:25pm Urine Drug . 05/09/2019 05/09/2019 DRUGS OF ABUSE CUT-OFF VALUES Screen Note 3:08pm 3:11pm AMPHETAMINES (AMPH) NEGATIVE (CUT OFF CONC: 1000 NG/ML) BARBITUATES (MICHAEL) NEGATIVE (CUT OFF CONC: 200 NG/ML) BENZODIAZEPINES (ANDREW) NEGATIVE (CUT OFF CONC: 300 NG/ML) CANNABINOIDS (THC) NEGATIVE (CUT OFF CONC: 50 NG/ML) COCAINE (TERRELL) NEGATIVE (CUT OFF CONC: 300 NG/ML) OPIATES (OPI) NEGATIVE (CUT OFF CONC: 300 NG/ML) PHENCYCLIDINE (PCP) NEGATIVE (CUT OFF CONC: 25 NG/ML)METHADONE (MTD) NEGATIVE (CUT OFF CONC: 300 NG/ML) PROPOXYPHENE (PPX) NEGATIVE (CUT OFF CONC: 300 NG/ML) OXYCODONE (OXY) NEGATIVE (CUT OFF CONC: 100 NG/ML) ANY POSITIVE RESULT IS UNCONFIRMED. CONFIRMATION AND QUANTITATION AVAILABLE UPON MD REQUEST. Ferritin < 28.2 ng/mL 13-150 05/09/2019 05/09/2019 2:40pm 7:45pm Creatine 778 U/L #H* 20-180 05/11/2019 05/11/2019 Results have been broadcasted to patient's location and [facility] 7:40am 8:30am called to (antonio lopez). By LETI MARTINEZ 05/11/19 @9005 Results read back for confirmation. Troponin I < 0.30 ng/mL 0.0-0.5 05/09/2019 05/09/2019 Published clinical studies have shown elevations of cTnI in 2:40pm 3:14pm patients with myocardial injury, as seen in unstable angina pectoris, cardiac contusions, and heart transplants. Elevations have also been seen in patients with rhabdomyolysis and polymyositis. Elevated troponin levels point to myocardial injury, but are not necessarily indicative of an ischemic mechanism. The term VA should be used when there is evidence [...] history, clinical examination and other findings. Creatine 27.9 ng/ml H* 0.0-3.6 05/09/2019 05/09/2019 Results have been broadcasted to patient's location and [facility] MB 2:40pm 3:29pm called to (SUNNY REAL RN). By AYAN PICKERING 05/09/19 @0098 Results read back for confirmation. DIAGNOSTIC CITERIA: CKMB CKMB RELATIVE INDEX SUGGESTIVE OF NON-AMI < or=5 N/A BALDWIN ZONE (INCONCLUSIVE) > 5 < or=4 SUGGESTIVE OF AMI >5 > 4 Pending Laboratory Results Test Name Collection Date/Time Erythropoietin 05/09/2019 2:40pm Procedures Procedure Status Date Provider(s) X-ray of chest, single view Completed 05/09/19 Debbi MCKENZIE DO X-ray of chest, single view Completed 05/09/19 KIMO BATES DO Encounters Encounter Location Arrival/Admit Date Discharge/Depart Date Attending Provider Discharged Elias 05/09/19 3:26pm 05/11/19 6:15pm WILBER FERRARI Inpatient (obs) [facility] Recent Diagnosis Scleroderma Rheumatoid arthritis Depression HTN (hypertension) CAD (coronary artery disease) Anxiety Systemic lupus erythematosus Weakness generalized Abdominal pain Rhabdomyolysis
--- OUTSIDE RECORDS SUMMARY | 2019-08-21 05:50 | XMS REPORT | Encounter Summary ---
:1965 Author Care Team Providers Name Role Phone Cristy Macedo Wenceslaomary Primary Care Provider [phone] Addison Michael MD Primary Care Provider [phone] Reason for Visit Pain Instructions 1. Cervical lymphadenopathy 2. Acute upper respiratory infection Augmentin ES-600 600 mg-42.9 mg/5 mL oral suspension Discussion Note RTC for any other concerns Patient educational handouts: No information available. Plan of Care Patient Instructions medication as directed; push fluids and ensure rest Reminders Provider Appointments None recorded. Lab None recorded. Referral None recorded. Procedures None recorded. Surgeries None recorded. Imaging None recorded. Medications Name Start Date Augmentin ES-600 600 mg-42.9 mg/5 mL oral suspension Take 20 mL every 12 hours by oral route for 7 days. hydroxychloroquine 200 mg tablet Medications Administered None recorded. Vitals Height Weight BMI Blood Pressure 67 in 124 lbs 2 oz 19.4 kg/m2 143/70 mm[Hg] Lab Results None recorded. 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 History of Present Illness Note: pt to clinic for sore throat and jaw pain; pain with eating; she reports swelling to right side of face Review of Systems General Adult ROS Reported By: Patient Constitutional: Constitutional: no fever ENMT: Ears: no ear pain. Nose: no nose/sinus problems. Mouth/Throat: sore throat Cardiovascular: Cardiovascular: no chest pain Respiratory: Respiratory: no cough, no wheezing, no shortness of breath Gastrointestinal: Gastrointestinal: no abdominal pain, no vomiting, no diarrhea Endocrine: Endocrine: no fatigue Allergic/Immunologic: Allergy/Immunologic: no runny nose, no sinus pressure Physical Exam Caroline Brief Adult Exam - M/F Reported By: Patient Constitutional: General Appearance: healthy-appearing, well-nourished, well-developed. Level of Distress: NAD. Ambulation: ambulating normally Psychiatric: Mental Status: active and alert ENMT: Ears: EACs clear, TMs clear. Nose: ; erythema. Oropharynx: moist mucous membranes, no exudates, erythema Neck: Lymph Nodes: cervical LAD Lungs: Auscultation: breath sounds normal Cardiovascular: Heart Auscultation: RRR, normal S1, normal S2, no murmurs Notes: no sinus tenderness
--- OUTSIDE RECORDS SUMMARY | 2019-08-21 05:51 | XMS REPORT | Encounter Summary ---
:1965 Author Care Team Providers Name Role Phone Addison Michael MD Primary Care Provider [phone] Reason for Visit Follow Up Visit Instructions 1. Essential hypertension losartan 50 mg tablet hydrochlorothiazide 25 mg tablet 2. Chronic constipation Linzess 145 mcg capsule Discussion Note RTC for any other concerns Patient educational handouts: No information available. Plan of Care Patient Instructions resume losartan; rec increase dose to losartan 50mg; take HCTZ once daily for 7 days; monitor blood pressure; keep appt with rheum Reminders Provider Appointments Follow up 08/02/2019 Zuleyma Miguel NP 9:00AM Lab None recorded. Referral None recorded. Procedures None recorded. Surgeries None recorded. Imaging None recorded. Medications Name Start Date dexamethasone 4 mg tablet DOK 100 mg capsule ergocalciferol (vitamin D2) 50,000 unit capsule ferrous sulfate 325 mg (65 mg iron) tablet GaviLyte-G 236 gram-22.74 gram-6.74 gram-5.86 gram oral solution hydrochlorothiazide 25 mg tablet Take 1 tablet every day by oral route. hydrocodone 7.5 mg-acetaminophen 325 mg/15 mL oral solution hydroxychloroquine 200 mg tablet Linzess 145 mcg capsule Take 1 capsule every day by oral route. losartan 25 mg tablet losartan 50 mg tablet Take 1 tablet every day by oral route. metoclopramide 10 mg tablet metoclopramide 5 mg/5 mL oral solution mycophenolate mofetil 200 mg/mL oral suspension ondansetron HCl 4 mg tablet pantoprazole 40 mg tablet,delayed release prednisone 10 mg tablet SalivaMAX 351 mg mucosal powder in packet Xifaxan 550 mg tablet Medications Administered None recorded. Vitals Height Weight BMI Blood Pressure 67 in 118 lbs 18.5 kg/m2 167/91 mm[Hg] Results Lab Results None recorded. Allergies Code Code [...] available Vaccine List None recorded. 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 History of Present Illness Note: pt to clinic for elevated blood pressure; she is prescribed losartan 25 mg daily; she has not been taking medication for several months; she started checking blood pressure and noticed it was high;over the past week she has been taking losartan 50mg; she also started on prednisone beginning of june; will seem rheum end of the month as well and have labs done; she reports some swelling in ankles; she also reports constipation; hx of same; had rx for linzess and is out; had small bm yesterdayevening Review of Systems General Adult ROS Reported By: Patient Constitutional: Constitutional: no fever Cardiovascular: Cardiovascular: no chest pain, no palpitations Respiratory: Respiratory: no cough, no wheezing, no shortness of breath Gastrointestinal: Gastrointestinal: no abdominal pain, no vomiting, no diarrhea Musculoskeletal: Musculoskeletal: swelling in the extremities Neurologic: Neurologic: no dizziness, no headaches Endocrine: Endocrine: fatigue Physical Exam Caroline Brief Adult Exam - M/F Reported By: Patient Constitutional: General Appearance: healthy-appearing, well-nourished, well-developed. Level of Distress: NAD. Ambulation: ambulating normally Psychiatric: Mental Status: active and alert Lungs: Auscultation: breath sounds normal Cardiovascular: Heart Auscultation: RRR, normal S1, normal S2, no murmurs Abdomen: Bowel Sounds: normal. Inspection and Palpation: soft, non-distended, no tenderness, no guarding Musculoskeletal: Edema present; nonpitting
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
--- OUTSIDE RECORDS SUMMARY | 2019-08-21 05:52 | XMS REPORT | Continuity of Care Document ---
:1965 Author Organization [facility] Address [address] [place] [address] Allergies, Adverse Reactions, Alerts Allergen Type Severity Reaction Last Updated Verified Status Sulfamethoxazole Allergy Severe July 24, Yes Active w/Trimethoprim 2016 ([id number]) Medications Medication Status Dose Units Route Sig Qty Days Start End Instructions Date Date Amoxicillin/Cl Discontinu 1 ORAL Twice A 14 July avulanate ed Day for , Potassium Uti 2018 2018 2:05pm Linaclotide * Active 145 ORAL Daily Lorazepam [...] (4-10-16-22) for 2018 Nausea 10:35am Prednisone Discontinued 30 ORAL Daily for Sle 30 08 AugustAugust 03, 20192018 2:05pm Zolpidem Tartrate Discontinued 5 ORAL Once Daily At July 18, 2017 Bedtime as needed 12:26pm (One-Time) for Insomnia Amoxicillin/Clavulanate Discontinued 5 ORAL Every 12 June Potassium Hours for , , Prn 2016 2016 11:25am Carvedilol Discontinued 1 ORAL Twice A 60 June Day for , , Hypertens 2016 2016 ion 2:41pm Cefdinir Discontinued 1 ORAL Twice A 10 July Day for , , Pneumonia 2017 2018 5:57pm Citalopram Hydrobromide Discontinued June * 2016 Erythromycin Discontinued 500 ORAL Three 90 June Times , , Daily 2016 2016 Before 12:26pm Meals for Gastropar esis Famotidine Discontinued 20 ORAL Twice A 60 30 June Day for , Pud 2016 2016 11:25am Furosemide Discontinued 20 ORAL Daily August 03, 2019 Furosemide Discontinued 20 ORAL Twice A 60 June Day for , Chf 2016 2016 11:25am Hydroxychloroquine Discontinued 200 ORAL Once October Sulfate Daily 2018 Losartan Potassium Discontinued 25 ORAL Twice A 60 August Day for , Hypertens 2016 2017 ion 11:55am Losartan Potassium Discontinued 25 ORAL Daily September 17, 2017 Losartan Potassium Discontinued 1 ORAL Daily for June Hypertens , ion 2016 2016 2:41pm Metoclopramide Hcl Discontinued 10 ORAL Before 120 June Meals And , At 2016 2017 Bedtime 11:25am for Nausea Metoclopramide Hcl Discontinued July 15, 2017 Omeprazole Discontinued 1 ORAL Daily July 25, 2019 Ondansetron Hcl Discontinued 1 ORAL Every 6 June Hours , (01-07-162016) for 12:26pm N/V Pantoprazole Sodium Discontinued 40 ORAL Daily February 20, 2018 Potassium Chloride Discontinued 20 ORAL Daily for 100 June Hypokalem , ia 2016 2016 11:25am Prednisone Discontinued 60 ORAL Daily for July 3 PO DAILY X 4 DAYS; Immunosup 2018 pressants 2017 2 PO DAILY X 4 DAYS; 5:56pm 1 PO DAILY Prednisone Discontinued 5 ORAL Daily August 19, 2018 Prednisone Discontinued 20 ORAL Daily for 27 SeptemberFebruary 20, Scleroder 2017 ma 2016 11:46am Prednisone Discontinued 5 ORAL Daily September 17, 2017 Prednisone Discontinued 40 ORAL Daily for June Lupus/Inf , lammation 2016 2016 12:26pm Valsartan Discontinued July 24, [...] adult Active HTN (hypertension) Active Headache Active Ileus Active Leg pain Active Lower extremity weakness Active Nausea & vomiting Resolved Nausea alone Active [place]'s syndrome Active Pericardial effusion Active Rhabdomyolysis Active Rheumatoid [...] rest Resolved Colitis Resolved Colon obstruction Resolved Diarrhea Resolved Elevated CK Resolved Epigastric abdominal pain [...] bleed Resolved Procedures Procedure Date Performed Status EMERGENCY DEPT VISIT July 25, [address] ABD & PELVIS W/O CONTRAST July 25, 2019 completed ECHO EXAM OF ABDOMEN July 25, 2019 completed X-RAY EXAM CHEST 1 VIEW July 25, 2019 completed ASSAY OF AMYLASE July 25, 2019 completed COMPLETE CBC W/AUTO DIFF WBC July 25, 2019 completed CREATINE MB FRACTION July 25, 2019 completed ASSAY OF CK (CPK) July 25, 2019 completed ASSAY OF LIPASE July 25, 2019 completed ASSAY OF MAGNESIUM July 25, 2019 completed ASSAY OF MYOGLOBIN July 25, 2019 completed ASSAY OF TROPONIN QUANT July 25, 2019 completed COMPREHEN METABOLIC PANEL July 25, 2019 completed ASSAY OF NATRIURETIC PEPTIDE July 25, 2019 completed THER/PROPH/DIAG IV INF ADDON July 25, 2019 completed THER/PROPH/DIAG IV INF INIT July 25, 2019 completed HYDRATE IV INFUSION ADD-ON July 25, 2019 completed ASSAY GLUCOSE BLOOD QUANT July 25, 2019 completed COMPLETE CBC W/AUTO DIFF WBC July 25, 2019 completed CREATINE MB FRACTION July 25, 2019 completed ASSAY OF CK (CPK) July 25, 2019 completed ASSAY OF MAGNESIUM July 25, 2019 completed ASSAY OF MYOGLOBIN July 25, 2019 completed ROUTINE VENIPUNCTURE July 25, 2019 completed ASSAY OF TROPONIN QUANT July 25, 2019 completed COMPREHEN METABOLIC PANEL July 25, 2019 completed X-RAY EXAM ABDOMEN 2 VIEWS July 25, 2019 completed COMPLETE CBC W/AUTO DIFF WBC July 25, 2019 completed CREATINE MB FRACTION July 25, 2019 completed ASSAY OF CK (CPK) July 25, 2019 completed ASSAY OF MYOGLOBIN July 25, 2019 completed ROUTINE VENIPUNCTURE July 25, 2019 completed COMPREHEN METABOLIC PANEL July 25, 2019 completed METABOLIC PANEL TOTAL CA July 25, 2019 completed July 25, 2019 completed July 25, 2019 completed HOSPITAL OBSERVATION SERVICES PER HOUR July 25, 2019 completed X-ray of chest, single view July 24, 2019 completed Hepatic ultrasound July 24, 2019 completed Computed tomography of abdomen and pelvis without July 24, 2019 completed contrast X-ray of abdomen, two views July 25, 2019 completed X-ray of chest, single view July 29, 2019 completed Computed tomography of abdomen and pelvis with contrast July 29, 2019 completed X-ray of abdomen, single view July 31, 2019 completed X-ray of abdomen, two views August 01, 2019 completed X-ray of abdomen, two views August 02, 2019 completed Relevant Diagnostic Tests and/or Laboratory Data Laboratory Results Test Date/Time Result Interpretation Reference Result Comment Performing Range Site White Blood November 12.0 4.0-11.5 [facility] [address] Count 2018 5:[address] [place] [address] 77082 Red Blood July 5.09 3.80-5.20 [facility], 104 Count 2018 5:[address] [place] [address] 37480 Hemoglobin November 11.4 10.5-15.7 [facility], [address] [facility] [address] 2018 5:[address] [place] [address] 92163 Hematocrit July 36.4 34.0-50.0 [facility], [address] [facility] [address] 2018 5:[address] [place] [address] 74613 Mean July 71.5 86-100 [facility], [address] [facility] Corpuscular 2018 Volume 5:[address] [place] [address] 53940 Mean July 22.4 26.2-33.4 [facility], [address] [facility] Corpuscular 2018 Hemoglobin 5:[address] [place] [address] 02319 Mean July 31.3 30-34 [facility], [address] [facility] Corpuscular 2018 Hemoglobin 5:[address] [place] [address] 41475 Concent Red Cell July 18.7 12.0-15.5 [facility], [address] Distribution 2018 Width 5:[address] [place] [address] 54771 Platelet July 381 165-450 [facility], [address] [facility] Count 2018 5:[address] [place] [address] 60691 Mean July 9.7 9.4-12.6 [facility], [address] [facility] Platelet 2018 Volume 5:[address] [place] [address] 42404 Neutrophils November 81.0 44.4-80.1 [facility], [address] (%) (Auto) 2018 5:[address] [place] [address] 46523 Immature November 0.4 0.0-0.4 [facility], [address] Granulocyte 2018 % (Auto) 5:[address] [place] [address] 24198 Lymphocytes November 9.2 10.0-50.0 [facility], [address] (%) (Auto) 2018 5:[address] [place], [place] [id number] Monocytes November 8.9 3.6-12.0 [facility], [address] (%) (Auto) 2018 5:[address] [place] [address] 69543 Eosinophils November 0.3 0.0-5.4 [facility], [address] (%) (Auto) 2018 5:[address] [place], [place] [id number] Basophils November 0.2 0.1-1.2 [facility], [address] (%) (Auto) 2018 5:[address] [place] [address] 37199 Neutrophils November 9.69 1.56-6.13 [facility], [address] # (Auto) 2018 5:[address] [place], [place] [id number] Absolute November 0.1 0.0-0.03 [facility], [address] Immature 2018 Granulocyte 5:[address] [place] [address] 09934 (auto Lymphocytes November 1.1 1.18-3.74 [facility], [address] # (Auto) 2018 5:[address] [place] [address] 77030 Monocytes # November 1.07 0.24-0.86 [facility], [address] (Auto) 2018 5:[address] [place], [place] [id number] Eosinophils November 0.03 0.04-0.36 [facility] [address] # (Auto) 2018 5:[address] [place] [address] 56452 Basophils # November 0.02 0.01-0.08 [facility] [address] (Auto) 2018 5:[address] [place] [address] 60088 Neutrophils June 68 37.0-80.0 [facility], [address] 2018 9:41pm [facility] 75699 Lymphocytes June 16 10-50 [facility] [address] (Manual) 2018 9:41pm [facility] 83210 Monocytes June 15 0-12 [facility] [address] (Manual) 2018 9:41pm [facility] 12434 Nucleated July 0 0-0.2 [facility], 104 Red Blood 2018 Cells % 5:13am [facility] 78677 Nucleated November 0 0 [facility], 104 Red Blood 2018 Cells # 5:13am [facility] 23251 N/A June 2+ NORMAL [facility], 104 2018 anisocytosis RBC. 6:44pm [facility] 88404 June plt appear NORMAL [facility], 104 2018 adequate RBC. 6:44pm [facility] 36993 June 29+ target NORMAL [facility], 104 2018 cells RBC. 6:44pm [facility] 10398 June 29+ microcytes NORMAL [facility], 104 2018 RBC. 6:44pm [facility] 45509 June 29+ NORMAL [facility], 104 2018 hypochromasia RBC. 6:44pm [facility] 50410 Platelet June ADEQUATE ADEQUATE [facility], 104 Estimate 2018 9:41pm [facility] 45529 Abnormal June NORMAL NORMAL [facility], 104 Platelet 2018 Morphology 9:41pm [facility] 35384 Hypochromasi June 1+ [facility], 104 a 2018 9:41pm [facility] 58513 Poikilocytos June 29+ [facility], [address] 2018 9:41pm [facility] 29559 Anisocytosis June 29+ [facility], 104 2018 9:41pm [facility] 32783 Microcytosis June 29+ [facility], 104 2018 9:41pm [facility] 00397 Schistocytes June OCCASSIONAL [facility], 104 2018 9:41pm [facility] 40767 Ovalocytes October OCCASSIONAL [facility], 104 2018 9:41pm [facility] 50389 Urine Color November [facility], 104 2018 2:50am [facility] 67700 Urine July CLEAR [facility], 104 Appearance 2018 2:50am [facility] 27350 Urine July NEGATIVE [facility], Glucose (UA) 2018 2:50[facility] 45973 Urine November NEGATIVE [facility] [address] Bilirubin 2018 2:50am [facility] 64716 Urine November NEGATIVE [facility], [address] Ketones 2018 2:50am [facility] 24396 Urine November 1.003-1.03 [facility], [address] Specific 2018 0 [place] 2:50[facility] 52860 Urine Blood November NEGATIVE [facility], [address] 2018 2:50am [facility] 82541 Urine pH July 5-9 [facility], [address] 2018 2:50[facility] 98638 Urine November NEGATIVE [facility], [address] Protein 2018 2:50[facility] 02895 Urine November 0.2-1.0 [facility], [address] Urobilinogen 2018 2:50am [facility] 03968 Urine November NEGATIVE [facility], [address] Nitrate 2018 2:50[facility] 20660 Urine November NEGATIVE [facility], [address] Leukocyte 2018 Esterase 2:50[facility] 00092 Urine RBC July 0-5 [facility], [address] 2018 2:50[facility] 15271 Urine WBC July 0-5 [facility], [address] 2018 2:50am [facility] 28095 Urine November 0-5 [facility] [address] Epithelial 2018 Cells 2:50am [facility] 30760 Urine November None [facility], [address] Bacteria 2018 Detect 2:50[facility] 74294 Urine Casts July None [facility], [address] 2018 Detect 2:50[facility] 24449 Urine November [facility], [address] Culture 2018 Reflexed 2:50[facility] 31579 Urine November None Seen [facility], [address] Amorphous 2018 Sediment 2:50[facility] 28436 POC June 70.0 - 110 [facility], [address] Capillary 2018 Blood 7:51pm [facility] 40107 Glucose (Chem) Lactic Acid July 0.5-2.2 [facility], [address] Level 2018 10:15am [facility] 27763 Random July 74-106 [facility] [address] Glucose 2018 5:13am [facility] 04369 Blood Urea August 04 [facility], Nitrogen 2018 5:13[facility] 79165 Serum July 280-300 [facility] Osmolality 2018 5:13[facility] 99717 Creatinine July 0.50-0.90 [facility], 2018 5:13[facility] 40647 Glomerular July GFR RESULTS [facility], Filtration 2018 ARE REPORTED Rate Calc 5:13am IN [facility] 99243 mL/min/1.73m2. Normal GFR: >60mL/minModer ately decreased GFR: 30-59 mL/minSeverely decreased GFR: 15-29 mL/minKidney Failure (or Dialysis): <15 mL/minThe calculated eGFR is not valid for patients younger than 18 years or older than 75 years. BUN/Creatini August 10 [facility], 104 ne Ratio 2018 5:13[facility] 40741 Sodium Level July 135-145 [facility], [facility] 2018 5:13[facility] 35516 Potassium July 3.5-5.2 [facility], [facility] Level 2018 5:13[facility] 09500 Chloride July 98-108 [facility], [facility] Level 2018 5:13[facility] 03916 Carbon August 19- [facility], Dioxide 2018 Level 5:13[facility] 97683 Anion Gap August 10 [facility], [address] [place] [address] 2018 5:[address] [place] [address] 96295 Calcium July 8.6-10.0 [facility], [facility] Level 2018 5:[address] [place] [address] 39423 Phosphorus July 2.5-4.5 [facility], [address] [place] [address] Level 2018 10:15[facility] 22865 Magnesium July 1.6-2.6 [facility], [facility] Level 2018 10:15[facility] 44020 Total July 6.6-8.7 [facility], [facility] Protein 2018 10:15[facility] 34596 Albumin July 3.5-5.2 [facility], [facility] 2018 10:15[facility] 74724 Globulin November [facility] 2018 10:15[facility] 09616 Albumin/Glob July >1.0 [facility], [address] ulin Ratio 2018 10:15am [facility] 44588 Total July 0.0-1.2 [facility] [address] Bilirubin 2018 10:15am [facility] 56906 Aspartate July 15-32 [facility] [address] Amino Transf 2018 (AST/SGOT) 10:15am [facility] 73404 Alanine July 0-33 [facility] [address] Aminotransfe 2018 rase 10:15am [facility] 34768 (ALT/SGPT) Amylase June 28-100 [facility] [address] Level 2018 7:34pm [facility] 85434 Lipase June 13-60 [facility] [address] 2018 7:34pm [facility] 95565 SD-Jfv-F-Typ July 0-125 [facility] [address] e 2018 Natriuretic 10:15am [facility] 76499 Peptide Total July 35-105 [facility] [address] Alkaline 2018 Phosphatase 10:15am [place] [id number] Vancomycin July 10-20 [facility] [address] Level Trough 2018 2:52pm [facility] 58884 Creatine July 20-180 [facility] [address] Kinase 2018 2:52pm [place] [id number] Troponin I June 0.0-0.5 Published [facility], [address] 2018 clinical 7:34pm studies have [place] [address] shown elevations of cTnI in patients with myocardial injury, as seen in unstable angina pectoris, cardiac contusions, and heart transplants. Elevations have also been seen in patients with rhabdomyolysis and polymyositis.E levated troponin levels point to myocardial injury, but are not necessarily indicative of an ischemic mechanism. The term [place] should be used when there is evidence of cardiac damage, as detected by marker proteins in a clinical setting consistent with myocardial ischemia. If the clinical circumstance suggests that an ischemic mechanism is unlikely, other causes of cardiac injury should be considered.For diagnostic purposes, the results should always be assessed in conjunction with the patient's medical history, clinical examination and other findings. Creatine July 0.0-3.6 DIAGNOSTIC [facility], [address] Kinase MB 2018 CITERIA: 2:52pm [facility] [place] [id number] [facility] RELATIVE INDEX--------- ---------SUGGE STIVE OF NON-AMI < or=5 N/AGRAY ZONE (INCONCLUSIVE) > 5 < or=4SUGGESTIVE OF AMI >5 > [address] [facility], [address] 2018 4:07am [facility] 92259 Microbiology Results Procedure Source Result Collection Result Result Performing Date/Time Date/Time Comment Site Blood Culture BLOOD SPECIMEN HAS July 29, July 29, [facility], [address] 2018 6:44pm 2018 6:49pm RECEIVED IN [place] [address] LAB AND IS IN PROGRESS. Diagnostic Imaging Reports Report Dictated Date/Time Dictated By Status July 24, 2019 11:15pm Agustin Cantu DO completed Patient: WALTER MAZA MR#: [id number] : [address] THOM BAUMAN MD Pt Status: REG Pt Location: [facility] Date/Time: 07/24/192054 Primary Care Physician: HONEY CUELLAR MD Technologist(s): CÉSAR MORRIS Procedure(s): [id number] RAD/CHEST 1 VIEW Signed EXAMINATION: CHEST 1 [...] DO on 07/24/2019 11:15 PM Transcribed By: [facility] SIGNED <electronically signed by Agustin Cantu DO> 14 17 Agustin Cantu DO July 24, 2019 11:41pm Agustin Cantu DO completed Patient: WALTER MAZA MR#: [id number] : [address] THOM BAUMAN MD Pt Status: REG ER Pt Location: [facility] Date/Time: 07/24/192137 Primary Care Physician: HONEY CUELLAR MD Technologist(s): JAIME LIZARRAGA Procedure(s): [id number] US/HEPATIC ULTRASOUND Signed EXAM: Right Upper Quadrant [...] DO on 07/24/2019 11:41 PM Transcribed By: [facility] SIGNED <electronically signed by Agustin Cantu DO> 40 [id number] Agustin Cantu DO July 25, 2019 12:01am Agustin Cantu DO completed Patient: WALTER MAZA MR#: [id number] : [address] THOM BAUMAN MD Pt Status: REG ER Pt Location: [facility] Date/Time: 07/24/19 2206 Primary Care Physician: HONEY CUELLAR MD Technologist(s): LIO YOUNG Procedure(s): [id number] CT/CT ABD & PELVIS W/O Signed EXAM: [...] DO on 07/25/2019 12:01 AM Transcribed By: [facility] SIGNED <electronically signed by Agustin Cantu DO> [id number] Agustin Cantu DO July 25, 2019 10:45am JANINE CONNOLLY MD completed Patient: WALTER MAZA MR#: [id number] : 1965 Ordering DrRafaela: KIMO BATES DO Pt Status : ADM Gerri [facility] Date/Time: 07/25/19 0945 Primary Care Physician: HONEY CUELLAR MD Technologist(s): LIO YOUNG Procedure(s): [id number] RAD/ABDOMEN 2 VIEWS Signed EXAM: Abdomen 2 Views INDICATION: Partial colon obstruction, abdominal distention COMPARISON: CT abdomen and pelvis 07/24/2019 and KUB 08/23/2018 FINDINGS: Lines/tubes: None. Mild of stool in the colon. Persistent severe dilatation of the colon, mainly of the cecum. No renal calculi. No abnormal soft tissue masses. Mild degenerative changes in the lumbar spine and pelvis. Rotatory scoliosis. IMPRESSION: Persistent dilatation of the colon with positive bowel gas in the rectum and again concerning for large bowel obstruction. There is also concern for cecal volvulus. Signed by: Dr. Janine Wilkerson M.D. on 07/25/2019 10:45 AM Transcribed By: [facility] SIGNED <electronically signed by JANINE WILKERSON MD> [id number] JANINE WILKERSON MD July 29, 2019 8:45pm RADHA DEAN MD completed Patient: WALTER MAZA MR#: [id number] : [address] THOM BAUMAN MD Pt Status: REG ER Pt Location: [facility] Date/Time: 07/29/19 1809 Primary Care Physician: HONEY CUELLAR MD Technologist(s): CÉSAR MORRIS Procedure(s): [id number] RAD/CHEST 1 VIEW Signed EXAMINATION: CHEST 1 VIEW INDICATION: Chest pain. COMPARISON: 07/24/2019. FINDINGS: TUBES and LINES: None. LUNGS: Lungs are well inflated. Patchy density in the left lung base, unchanged. There is no evidence of pneumonia or pulmonary edema. PLEURA: No pleural effusion or pneumothorax. HEART AND MEDIASTINUM: Cardiac size is moderately enlarged. BONES AND SOFT TISSUES: No acute osseous lesion. Coils projected on the right humeral neck UPPER ABDOMEN: No free air under the diaphragm. Gaseous distention of bowel loops in the upper abdomen. IMPRESSION: No interval change. Cardiomegaly and without pulmonary edema. Signed by: Dr. Mikayla Dean M.D. on 07/29/2019 8:45 PM Transcribed By: [facility] SIGNED <electronically signed by RADHA DEAN MD> 44 [id number] RADHA DEAN MD July 29, 2019 8:56pm RADHA DEAN MD completed Patient: WALTER MAZA MR#: [id number] : [address] THOM BAUMAN MD Pt Status: REG ER Pt Location: [facility] Date/Time: 07/29/19 1822 Primary Care Physician: HONEY CUELLAR MD Technologist(s): CÉSAR MORRIS Procedure(s): [id number] CT/CT ABD & PELVIS W Signed EXAM: CT Abdomen and Pelvis WITH contrast INDICATION: Abdominal distention. Nausea vomiting diarrhea. COMPARISON: None. TECHNIQUE: Abdomen and pelvis were scanned utilizing a multidetector helical scanner from the lung base to the pubic symphysis after administration of IV contrast. Coronal and sagittal reformations were obtained. Routine protocol was performed. Scan was performed when during portal venous phase. IV CONTRAST: 100 cc Isovue-300 ORAL CONTRAST: Water RADIATION DOSE: Total DLP: 270.70 mGy*cm Estimated effective dose: (DLP x 0.015 x size factor) mSv COMPLICATIONS: None FINDINGS: LINES and TUBES: None. LOWER THORAX: Mild distention of the distal esophagus with food debris. Patchy consolidation in the left lower lobe posteriorly, consistent with pneumonia, possibly aspiration. This has developed in the interval. HEPATOBILIARY: No focal hepatic lesions. No biliary ductal dilation. GALLBLADDER: There are cholecystectomy clips. Mild central intrahepatic bladder dilatation likely reservoir status post cholecystectomy. SPLEEN: No splenomegaly. PANCREAS: No focal masses or ductal dilatation. ADRENALS: No adrenal nodules KIDNEYS/URETERS: Kidneys enhance symmetrically. No hydronephrosis. No cystic or solid mass lesions. No stones. GI TRACT: Redemonstration of moderate to marked diffuse dilatation of the colon, particularly of the transverse colon up to 9.8 cm, unchanged. There is mild diffuse dilatation of small bowel loops with similar appearance compared to the prior examination, with a focal lead decompressed small bowel loop as seen on the right hemipelvis on image 76 series 2, nonspecific. The stomach and duodenum and jejunum are decompressed. PELVIC ORGANS/BLADDER: The uterus is absent. Bilateral ovaries are unremarkable. LYMPH NODES: No lymphadenopathy. VESSELS: Unremarkable. PERITONEUM / RETROPERITONEUM: No free air or fluid. BONES: There are degenerative changes in the lumbar spine. SOFT TISSUES: Unremarkable. IMPRESSION: 1. Left lower lobe aspiration pneumonia. Patulous distal esophagus with debris. 2. Diffuse dilatation of the colon with marked dilatation of the transverse colon again observed. Diffuse dilatation of the small bowel loops similar in appearance to the prior examination of July 24, suggesting ileus versus . Recommend follow-up after treatment to document resolution. Signed by: Dr. Mikayla Dean M.D. 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 F.A.A.C Transcribed By: [facility] SIGNED <electronically signed by ZAID MCKENZIE MD> 15 15 ZAID MCKENZIE MD July 31, 2019 10:54am RADHA DEAN MD completed Patient: WALTER MAZA MR#: [id number] : 1965 Ordering DrRafaela: SEBASTIAN GERMAIN MD Pt Status: ADM IN Pt Location: [facility] Date/Time: 07/31/19 0953 Primary Care Physician: HONEY CUELLAR MD Technologist(s): BRENNAN BENNETT Procedure(s): [id number] RAD/ABDOMEN 1 VIEW Signed EXAM: ABDOMEN 1 VIEW, DATE: 07/31/2019 9:55 AM INDICATION: Ileus. COMPARISON: 07/25/2019. FINDINGS: LINES/TUBES: NG/orogastric tube with distal tip projected on the expected location of the gastric body. BOWEL PATTERN: No redemonstration of diffuse moderate colonic distention up to 7.2 cm in the descending colon. Mild dilatation of multiple small bowel loops. SOFT TISSUES: No abnormal calcifications. No mass effect. LUNG BASES: Not included BONES: No acute findings. IMPRESSION: No significant interval change in ileus versus obstruction. Consider further evaluation with follow-up CT abdomen pelvis with oral contrast. Signed by: Dr. Mikayla Dean M.D. on 07/31/2019 10:54 AM Transcribed By: [facility] SIGNED <electronically signed by RADHA DEAN MD> [id number] RADHA DEAN MD August 01, 2019 1:53pm JANINE CONNOLLY MD completed Patient: WALTER MAZA MR#: [id number] : [address] EVER JIN JR, MD Pt Status: ADM IN Pt Location: [facility] Date/Time: 08/01/19 1309 Primary Care Physician: HONEY CUELLAR MD Technologist(s): BRENNAN BENNETT Procedure(s): [id number] RAD/ABDOMEN 2 VIEWS Signed EXAM: Abdomen 2 Views INDICATION: Ileus versus small bowel obstruction COMPARISON: [facility] 07/25/2019 and 07/31/2019, CT abdomen and pelvis 07/29/2019 FINDINGS: Lines/tubes: NG/G-tube overlying the gastric body. Mild of stool in the colon. Interval slightly decreased in caliber of multiple loops of small bowel. No renal calculi. No abnormal soft tissue masses. Moderate degenerative changes in the lumbar spine and pelvis. IMPRESSION: Improving ileus or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
--- OUTSIDE RECORDS SUMMARY | 2019-08-21 05:53 | XMS REPORT | Continuity of Care Document ---
:1965 Author Organization [facility] Address [address] [place] [address] Allergies, Adverse Reactions, Alerts Allergen Type Severity Reaction Last Updated Verified Status Sulfamethoxazole Allergy Severe July 24, Yes Active w/Trimethoprim 2016 ([id number]) Medications Medication Status Dose Units Route Sig Qty Days Start End Instructions Date Date Azithromycin Discontinu 250 ORAL Once 7 July ed Daily , for 2018 2019 Pneumon 1:54pm ia Cefdinir Discontinu 300 ORAL Twice A 14 July ed Day for , Pnuemon 2018 2018 ia 1:54pm Linaclotide * Active 145 ORAL Daily Lorazepam Active 0.5 ORAL Twice 20 Daily As Needed as needed for Anxiety Mycophenolate Discontinued 2 ORAL Twice A Day for September 17, Mofetil Scleroderma 2016 11:46am (One-Time) Ondansetron Hcl Discontinued 1 ORAL Every 6 Hours June (4-10-16-22) for 2018 Nausea 10:35am Pantoprazole Discontinued 40 ORAL Once Daily At July Sodium Bedtime for Gerd 2018 4:21pm Prednisone Discontinued 30 ORAL Daily for Sle 30 08 AugustAugust 03, 20192018 2:05pm Zolpidem Tartrate Discontinued 5 ORAL Once Daily At 30 July 18, 2017 Bedtime as needed 12:26pm (One-Time) for Insomnia Amoxicillin/Clavulanate Discontinued 1 ORAL Twice A 14 July Potassium Day for 2018, Uti 2:05pm 2018 Amoxicillin/Clavulanate Discontinued 5 ORAL Every 12 June Potassium Hours for , , Prn 2016 2016 11:25am Carvedilol Discontinued 1 ORAL Twice A 60 June Day for , , Hypertens 2016 2017 ion 2:41pm Cefdinir Discontinued 1 ORAL Twice A 10 July Day for , Pneumonia 2017 2018 5:57pm Citalopram Hydrobromide Discontinued June Erythromycin Discontinued 500 ORAL Three 90 June Times , Daily 2016 2017 Before 12:26pm Meals for Gastropar esis Famotidine Discontinued 20 ORAL Twice A 60 June Day for , Pud 2016 2016 11:25am Furosemide Discontinued 20 ORAL Daily August 03, 2019 Furosemide Discontinued 20 ORAL Twice A 60 June Day for , Chf 2016 2016 11:25am Hydroxychloroquine Discontinued 200 ORAL Once October Sulfate Daily 2018 Losartan Potassium Discontinued 25 ORAL Daily August 16, 2019 Losartan Potassium Discontinued 25 ORAL Twice A 60 August Day for , Hypertens 2016 2016 ion 11:55am Losartan Potassium Discontinued 25 ORAL Daily September 17, 2017 Losartan Potassium Discontinued 1 ORAL Daily for June Hypertens , ion 2016 2016 2:41pm Metoclopramide Hcl Discontinued 5 ORAL Three July, Daily As 2019 Needed Metoclopramide Hcl Discontinued 10 ORAL Before 120 [...] for 27 SeptemberFebruary 20, Scleroder 2017 ma 2017 11:46am Prednisone Discontinued 5 ORAL Daily [...] Active Chest pain Active Chest pain Active Chest pain Active Constipation Active Dehydration Resolved Depression Active Depression Active Failure to thrive in adult Active Gastroparesis Active HTN (hypertension) Active HTN (hypertension) Active Headache Active Ileus Active Left lower lobe pneumonia Active Leg pain Active Lower extremity weakness Active Muscle wasting Active Nausea & vomiting Resolved Nausea alone Active Mauro's syndrome Active Pericardial effusion Active Rhabdomyolysis Active Rheumatoid arthritis Active Right shoulder pain Active SLE (systemic lupus erythematosus) Active Scleroderma Active Scleroderma Active Shortness of breath Active Systemic lupus erythematosus Active UTI (urinary tract infection) Active Vomiting Active Weakness Active Weakness Active Weakness generalized Active History of incision of pericardium Active Inactive/Resolved Problems Medical Problem Onset Date Status Abdominal discomfort Resolved Abdominal distension Resolved Anemia Resolved CHF (congestive heart failure) Resolved CHF exacerbation Resolved CREST syndrome Resolved Chest pain at [...] Rhabdomyolysis Resolved SLE (systemic lupus erythematosus) Resolved SLE exacerbation Resolved Small bowel obstruction Resolved UTI (urinary [...] abdomen, two views August 02, 2019 completed X-ray of chest, single view August 11, 2019 completed Computed tomography of thorax with contrast August 12, 2019 completed X-ray of chest, single view August 12, 2019 completed X-ray of chest, single view August 12, 2019 completed Relevant Diagnostic Tests and/or Laboratory Data Laboratory Results Test Date/Time Result Interpretation Reference Result Comment Performing Range Site White Blood July 4.0-11.5 [facility] [address] Count 2018 3:33am [place] [address] Red Blood July 3.80-5.20 [facility], [address] Count 2018 3:33am [facility] [address] Hemoglobin July 10.5-15.7 [facility], [address] 2018 3:33am [facility] [address]165 Hematocrit July 34.0-50.0 [facility], [address] 2018 3:[address] [place] [address] Mean July 86-100 [facility], [address] Corpuscular 2018 Volume 3:[address] [place], [place] [id number] Mean July 26.2-33.4 [facility], [address] Corpuscular 2018 Hemoglobin 3:[address] [place], [place] [id number] Mean July 30-34 [facility], [address] Corpuscular 2018 Hemoglobin 3:[address] [place] [address] Concent Red Cell November 12.0-15.5 [facility], [address] Distribution 2018 Width 3:[address] [place], [place] [id number] Platelet November 165-450 [facility], [address] Count 2018 3:[address] [place] [address] Mean November 9.4-12.6 [facility], [address] Platelet 2018 Volume 3:[address] [place], [place] [id number] Neutrophils November 44.4-80.1 [facility], [address] (%) (Auto) 2018 3:[address] [place] [address] Immature November 0.0-0.4 [facility], [address] Granulocyte 2018 % (Auto) 3:[address] [place], [place] [id number] Lymphocytes November 10.0-50.0 [facility], [address] (%) (Auto) 2018 3:[address] [place], [place] [id number] Monocytes November 3.6-12.0 [facility], [address] (%) (Auto) 2018 3:[address] [place], [place] [id number] Eosinophils November 0.0-5.4 [facility], [address] (%) (Auto) 2018 3:[address] [place], [place] [id number] Basophils November 0.1-1.2 [facility], [address] (%) (Auto) 2018 3:[address] [place], [place] [id number] Neutrophils November 1.56-6.13 [facility], [address] # (Auto) 2018 3:[address] [place] [address] Absolute November 0.0-0.03 [facility], [address] Immature 2018 Granulocyte 3:[address] [place] [address] (auto Lymphocytes November 1.18-3.74 [facility], [address] # (Auto) 2018 3:[address] [place] [address] Monocytes # November 0.24-0.86 [facility], [address] (Auto) 2018 3:[address] [place] [address] Eosinophils July 0.04-0.36 [facility], [address] # (Auto) 2018 3:[address] [place] [address] Basophils # July 0.01-0.08 [facility], [address] (Auto) 2018 3:[address] [place] [address] Neutrophils June 37.0-80.0 [facility], [address] 2018 9:41[facility] [address] Lymphocytes June 16 10-50 [facility], [address] (Manual) 2018 9:41[facility] [address] Monocytes June 15 0-12 [facility], [address] (Manual) 2018 9:[address] [place], [place] [id number] Nucleated July 0-0.2 [facility], [address] [facility] Red Blood 2018 Cells % 3:[address] [place] [address] Nucleated July 0 [facility], [address] [facility] Red Blood 2018 Cells # 3:[address] [place], [place] [id number] N/A June 2+ NORMAL [facility], 104 2018 anisocytosis RBC. 6:44pm [place] [id number] June plt appear NORMAL [facility], 104 2018 adequate RBC. 6:44[place] [id number] June 29+ target NORMAL [facility], 104 2018 cells RBC. 6:44[place] [address] June 29+ microcytes NORMAL [facility], 104 2018 RBC. 6:44[place] [id number] June 29+ NORMAL [facility], 104 2018 hypochromasia RBC. 6:44[place] [id number] Platelet June ADEQUATE ADEQUATE [facility], [address] Estimate 2018 9:41pm [place] [id number] Abnormal June NORMAL NORMAL [facility], [address] Platelet 2018 Morphology 9:41[place] [id number] Hypochromasi June 29+ [facility], [address] a 2018 9:41[place] [id number] Poikilocytos June 29+ [facility], [address] is 2018 9:41pm [place] [id number] Anisocytosis October 1+ [facility], 104 2018 9:41pm [place] [address] Microcytosis June 29+ [facility], 104 2018 9:41pm [place] [address] Schistocytes October OCCASSIONAL [facility], 104 2018 9:41pm [place] [address] Ovalocytes October OCCASSIONAL [facility], 104 2018 9:41pm [facility] [address] Erythrocyte July 0.00-20 [facility], 104 Sedimentatio 2018 n Rate 3:33am [facility] 483[address] Urine Color November [facility], [address] 2018 8:13pm [facility] 587[address] Urine November CLEAR [facility], [address] Appearance 2018 8:13pm [facility] 45552 Urine November NEGATIVE [facility], 104 Glucose (UA) 2018 8:13pm [facility] 48883 Urine November NEGATIVE [facility], 104 Bilirubin 2018 8:13pm [facility] 14607 Urine November NEGATIVE [facility], 104 Ketones 2018 8:13pm [facility] 73371 Urine November 1.003-1.03 [facility], [address] Specific 2018 0 [place] 8:13pm [facility] 28034 Urine Blood November NEGATIVE [facility], 104 2018 8:13pm [facility] [address]386 Urine pH July 5-9 [facility], 104 2018 8:13pm [facility] [address]3410 Urine November NEGATIVE [facility], 104 Protein 2018 8:13pm [facility] 70097 Urine November 0.2-1.0 [facility], 104 Urobilinogen 2018 8:13pm [facility] 78521 Urine November NEGATIVE [facility], [address] Nitrate 2018 8:13pm [facility] 43753 Urine November NEGATIVE [facility], 104 Leukocyte 2018 Esterase 8:13pm [facility] 91717 Urine RBC July 0-5 [facility], 104 2018 8:13pm [facility] [address]1978 Urine WBC July 0-5 [facility], 104 2018 8:13pm [facility] 00223 Urine November 0-5 [facility], 104 Epithelial 2018 Cells 8:13pm [place] [address] Urine July None [facility], [address] [place] [address] Bacteria 2018 Detect 8:13pm [place] [address] Urine Casts July None [facility], [address] [place] [address] ST 2018 Detect 8:13pm [place] [address] Urine November [facility], [address] [place] [address] Culture 2018 Reflexed 8:13pm [place] [address] Urine November None Seen [facility], [address] [place] [address] Amorphous 2018 Sediment 2:50am [place] [address] Urine Yeast July None [facility], [address] [place] [address] 2018 Detect 8:13pm [place] [address] POC June 70.0 - 110 [facility], [address] [place] [address] Capillary 2018 Blood 7:51pm [place] [address] Glucose (Chem) Lactic Acid July 0.5-2.2 [facility], [address] [place] [address] Level 2018 5:56pm [place] [address] Procalcitoni July 0.0-0.8 The change of [address] n 2018 PCT 5:56pm concentration [facility] [address] over time providesprogno stic information about the risk of mortality [id number] days for patients diagnosed with severe sepsis or septicshock coming from the emergency department, ICU, othermedical wards, or directly from outside the hospital. Datasupports the use of PCT determinations from the day severesepsis or septic shock is first diagnosed (Day 0) or the daythereafter (Day 1) and the fourth day after diagnosis(Day 4) for the classification of patients into higher andlower risk for mortality within 28 days according to theworkflow below:PCT Day 0(or Day 1) - PCT Day 4delta PCT= X 100%PCT Day 0 (or Day 1)A decrease of PCT levels below or equal to 80% defines apositive delta PCT test result representing a higherrisk for 28-day all-cause mortality of patients diagnosedwith severe sepsis or septic shock.A decreased of PCT levels of more than 80% defines anegative delta PCT result representing a lower risk [id number] all-cause mortality of patients diagnosed withsevere sepsis or septic shock.To determine delta PCT results from the absolute PCTconcentrati ons of a patient obtained on the day severesepsis or septic shock was first diagnosed (or 24 hourslater) and on Day 4, go to [email or web address] m. Random July-106 [facility], Glucose 2018 3:33am [place] [address] Blood Urea July 6 [facility], Nitrogen 2018 3:33am [place] [address] Serum July 280-300 [facility], Osmolality 2018 3:33am [facility] [address] Urine Sodium July [facility], [facility] 2018 8:13pm [facility] [address] Creatinine July 0.50-0.90 [facility], 2018 3:33am [facility] [address] Glomerular July GFR RESULTS [facility], Filtration 2018 ARE REPORTED Rate Calc 3:33am IN [facility] 37510 mL/min/1.73m2. Normal GFR: >60mL/minModer ately decreased GFR: 30-59 mL/minSeverely decreased GFR: 15-29 mL/minKidney Failure (or Dialysis): <15 mL/minThe calculated eGFR is not valid for patients younger than 18 years or older than 75 years. BUN/Creatini August 10 [facility], ne Ratio 2018 3:33am [facility] [address] Sodium Level July 135-145 [facility], 2018 3:33am [place] [address] Potassium July 3.5-5.2 [facility], Level 2018 3:33am [place] [address] Chloride July 98-108 [facility] Level 2018 3:33am [facility] 115[address] Carbon August 19- [facility], [facility] Dioxide 2018 Level 3:33am [facility] [address]30[address] Anion Gap August 10 [facility], [facility] 2018 3:33am [place] [address] Calcium July 8.6-10.0 [facility], [facility] Level 2018 3:33am [place] [address] Phosphorus July 2.5-4.5 [facility], ST Level 2018 10:15am [facility] [address]36 Magnesium July 1.6-2.6 [facility], [address] [facility] Level 2018 5:56pm [facility] 74[address] Total July 6.6-8.7 [facility], [address] [facility] Protein 2018 3:57am [facility] [address]865 Albumin July 3.5-5.2 [facility], [address] [facility] 2018 3:57am [facility] [address] Globulin July [facility], [address] [facility] 2018 3:57[facility] [address] Albumin/Glob July >1.0 [facility], [address] [facility] ulin Ratio 2018 3:57[facility] [address] Total July 0.0-1.2 [facility], [address] [facility] Bilirubin 2018 3:57am [facility] [address] Aspartate July 15- [facility], [address] [facility] Amino Transf 2018 (AST/SGOT) 3:57am [facility] [address]87[address] Alanine July 0-33 [facility], [address] [place] [address] Aminotransfe 2018 rase 3:57[facility] [address] (ALT/SGPT) Amylase July 26- [facility], [address] [facility] Level 2018 7:34pm [facility] 60093 Lipase July 11 [facility], [address] [facility] 2018 7:34pm [facility] [address] VU-Mah-K-Typ July 0-125 [facility], [address] [facility] e 2018 Natriuretic 5:56pm [facility] [address]40 Peptide C-Reactive November 0.0-5.0 High [facility], [address] [facility] Protein High 2018 Sensitivity Sensitivity 3:33am C-Reactive [facility] [address]3635 Protein (CCRP) Expected Values: < 1.0 mg/L Low risk1.0 - 3.0 mg/L Moderate risk> 3.0 mg/L High riskTo convert CCRP to CRP for use as an inflammatory marker, divide the CCRP by 10Normal range for CRP 0.0 - 0.7 mg/dL Total July 35-105 [facility], [address] [facility] Alkaline 2018 Phosphatase 3:57am [facility] 91211 Urine Total July [facility], [address] [facility] Protein 2018 8:13pm [facility] 57261 Urine August 26- [facility], [address] Creatinine 2018 8:13pm [facility] 92310 Vancomycin August 08- [facility], [address] Level Trough 2018 2:52pm [facility] 03530 Thyroid July 0.36-3.74 [facility], [address] Stimulating 2018 Hormone 5:56pm [facility] [address]17 (TSH) Complement July- Performed at: [facility] A# [id number], [address], [address] C3 2018 HD - [facility] 8:07am [address] [address] [place], [place] [id number] Director: Justice Adams MD, Phone: [phone] Complement August 12 [facility] A# [id number], [address], [address] C4 2018 8:07am [facility] [address] Anti-Double July 0-9 [facility] A# [id number], [address], [address] Strand DNA 2018 Antibody 8:07am Negative [facility] [address] <5 Equivocal 5 - 9 Positive >9Performed at: HD - [facility] [address] [id number] Director: Justice Adams MD, Phone: [phone] Creatine August 18-180 [facility], [address] Kinase 2018 5:08pm [facility] 89885 Troponin I July 0.0-0.5 Published [facility], [address] 2018 clinical 3:57am studies have [place] [id number] shown elevations of cTnI in patients with myocardial injury, as seen in unstable angina pectoris, cardiac contusions, and heart transplants. Elevations have also been seen in patients with rhabdomyolysis and polymyositis.E levated troponin levels point to myocardial injury, but are not necessarily indicative of an ischemic mechanism. The term AL should be used when there is evidence of cardiac damage, as detected by marker proteins in a clinical setting consistent with myocardial ischemia. If the clinical circumstance suggests that an ischemic mechanism is unlikely, other causes of cardiac injury should be considered.For diagnostic purposes, the results should always be assessed in conjunction with the patient's medical history, clinical examination and other findings. Creatine November 0.0-3.6 Results have [facility], [address] [place] [address] Kinase MB 2018 been 5:08pm broadcasted to [place] [address] patient's location and called to (BRAYAN). By SPRING YO 08/13/19 @1743Results read back for confirmation. DIAGNOSTIC CITERIA: CKMB CKMB RELATIVE INDEX--------- ---------SUGGE STIVE OF NON-AMI < or=5 N/AGRAY ZONE (INCONCLUSIVE) > 5 < or=4SUGGESTIVE OF AMI >5 > 4 Myoglobin June [facility], [address] 2018 4:07am [facility] [address]363 Microbiology Results Procedure Source Result Collection Result Result Performing Date/Time Date/Time Comment Site Blood Culture BLOOD FINAL July 29, July 29, [facility], [address] [place] [address] REPORT. 2019 6:44pm 2019 6:49pm [place] [address] Diagnostic Imaging Reports Report Dictated Date/Time Dictated By Status July 24, 2019 11:15pm Agustin Cantu DO completed Patient: WALTER MAZA MR#: [id number] : [address] THOM BAUMAN MD Pt Status: REG Pt Location: [facility] Date/Time: 07/24/192054 Primary Care Physician: HONEY CUELLAR MD Technologist(s): CÉSAR MORRIS Procedure(s): [id number] RAD/CHEST 1 VIEW Signed EXAMINATION: CHEST 1 [...] DO on 07/24/2019 11:15 PM Transcribed By: [employer] SIGNED <electronically signed by Agustin Cantu DO> 14 17 Agustin Cantu DO July 24, 2019 11:41pm Agustin Cantu DO completed Patient: WALTER MAZA MR#: [id number] : [address] THOM BAUMAN MD Pt Status: REG Pt Location: [facility] Date/Time: 07/24/192137 Primary Care Physician: HONEY CUELLAR MD Technologist(s): JAIME LIZARRAGA Procedure(s): [id number] US/HEPATIC ULTRASOUND Signed EXAM: Right Upper Quadrant [...] DO on 07/24/2019 11:41 PM Transcribed By: [employer] SIGNED <electronically signed by Agustin Cantu DO> 40 42 Agustin Cantu DO July 25, 2019 12:01am Agustin Cantu DO completed Patient: WALTER MAZA MR#: [id number] : [address] THOM BAUMAN MD Pt Status: REG ER Pt Location: [facility] Date/Time: 07/24/192205 Primary Care Physician: HONEY CUELLAR MD Technologist(s): LIO YOUNG Procedure(s): [id number] CT/CT ABD & PELVIS W/O Signed EXAM: [...] DO on 07/25/2019 12:01 AM Transcribed By: [employer] SIGNED <electronically signed by Agustin Cantu DO> [id number] Agustin Cantu DO July 25, 2019 10:45am JANINE CONNOLLY MD completed Patient: WALTER MAZA MR#: [id number] : 1965 Ordering DrRafaela: KIMO BATES DO Pt Status : ADM Gerri [facility] Date/Time: 07/25/19 0945 Primary Care Physician: HONEY CUELLAR MD Technologist(s): LIO YOUNG Procedure(s): [id number] RAD/ABDOMEN 2 VIEWS Signed EXAM: Abdomen 2 [...] M.D. on 07/25/2019 10:45 AM Transcribed By: [employer] SIGNED <electronically signed by JANINE WILKERSON MD> 44 47 JANINE WILKERSON MD July 29, 2019 8:45pm RADHA DEAN MD completed Patient: WALTER MAZA MR#: [id number] : [address] THOM BAUMAN MD Pt Status: REG Pt Location: [facility] Date/Time: 07/29/191808 Primary Care Physician: HONEY CUELLAR MD Technologist(s): CÉSAR MORRIS Procedure(s): [id number] RAD/CHEST 1 VIEW Signed EXAMINATION: CHEST 1 [...] M.D. on 07/29/2019 8:45 PM Transcribed By: [employer] SIGNED <electronically signed by RADHA DEAN MD> 44 46 RADHA DEAN MD July 29, 2019 8:56pm RADHA DEAN MD completed Patient: WALTER MAZA MR#: [id number] : [address] THOM BAUMAN MD Pt Status: REG ER Pt Location: [facility] Date/Time: 07/29/19 1822 Primary Care Physician: HONEY CUELLAR MD Technologist(s): CÉSAR MORRIS Procedure(s): [id number] CT/CT ABD & PELVIS W Signed EXAM: [...] M.D. 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 F.A.A.C Measurements Intervals [place] Rate: 102 P: 64 KS: 169 QRS: 24 QRSD: 90 T: 185 QT: 322 QTc: 420 Interpretive Statements Sinus tachycardia Probable left atrial enlargement LVH with secondary repolarization abnormality Electronically Signed On 07-30-2019 23:16:19 CDT by Zaid Mckenzie M.D. F.A.A.C Transcribed By: [employer] SIGNED <electronically signed by ZAID MCKENZIE MD> 15 15 ZAID MCKENZIE MD July 31, 2019 10:54am RADHA DEAN MD completed Patient: WALTER MAZA MR#: [id number] : [address] SEBASTIAN GERMAIN MD Pt Status: ADM IN Pt Location: [facility] Date/Time: 07/31/19 0953 Primary Care Physician: HONEY CUELLAR MD Technologist(s): BRENNAN BENNETT Procedure(s): [id number] RAD/ABDOMEN 1 VIEW Signed EXAM: ABDOMEN 1 [...] M.D. on 07/31/2019 10:54 AM Transcribed By: [employer] SIGNED <electronically signed by RADHA DEAN MD> [id number] RADHA DEAN MD August 01, 2019 1:53pm JANINE CONNOLLY MD completed Patient: WALTER MAZA MR#: [id number] : [address] EVER JIN JR, MD [id number] Pt Location: [facility] Date/Time: 08/01/19 1309 Primary Care Physician: HONEY CUELLAR MD Technologist(s): BRENNAN BENNETT Procedure(s): [id number] RAD/ABDOMEN 2 VIEWS Signed EXAM: Abdomen 2 [...] M.D. on 08/01/2019 1:53 PM Transcribed By: [employer] SIGNED <electronically signed by JANINE WILKERSON MD> [id number] JANINE WILKERSON MD August 02, 2019 12:07pm Daniel Camargo MD completed Patient: WALTER MAZA MR#: [id number] : [address] EVER JIN JR, MD Pt Status: ADM IN Pt Location: [facility] Date/Time: 08/02/19 0915 Primary Care Physician: HONEY CUELLAR MD Technologist(s): GARY RIBEIRO Procedure(s): [id number] RAD/ABDOMEN 2 VIEWS Signed Abdomen, 2 views. History: Bowel obstruction. Comparison: Abdominal radiographs dated 08/01/2019 and 07/31/2019. Findings: Interval removal of enteric tube. Numerous monitoring devices overlie the patient. Redemonstrated diffuse moderate colonic air distention not significantly changed from most recent radiograph dated 08/01/2019. Persistent mild dilatation of multiple small bowel loops. No abnormal calcifications. No mass effect. No acute osseous findings. Retrocardiac opacity/left lung base opacity is unchanged. Stable enlarged cardiac silhouette. IMPRESSION: No significant interval change in ileus versus obstruction. Interval removal of enteric tube. Signed by: Daniel Camargo MD on 08/02/2019 12:07 PM Transcribed By: [email or web address] SIGNED <electronically signed by Daniel Camargo MD> [id number] Daniel Camargo MD August 11, 2019 5:00pm JOEL PULIDO MD completed Patient: WALTER MAZA MR#: [id number] : [address] XOCHITL ROBERTSON MD Pt Status: REG ER Pt Location: [facility] Date/Time: 08/11/19 1645 Primary Care Physician: HONEY CUELLAR MD Technologist(s): DEYSI SMITH Procedure(s): [id number] RAD/CHEST 1 VIEW Signed Examination: Single AP view of the chest. COMPARISON: July 29, 2018 INDICATION: Chest pain DISCUSSION: Lines/tubes: None. Lungs: Prominent interstitial markings. No consolidation. Pleura: No pleural effusion or pneumothorax. Heart and mediastinum: Heart is enlarged Bones and soft tissues: No acute bony abnormalities. IMPRESSION: Cardiomegaly without decompensation Signed by: Dr. Joel Pulido M.D. on 08/11/2019 5:00 PM Transcribed By: [employer] SIGNED <electronically signed by JOEL PULIDO MD> [phone] JOEL PULIDO MD August 12, 2019 9:01am ROX EMERSON MD completed Patient: WALTER MAZA MR#: [id number] : [address] HONEY CUELLAR MD Pt Status: ADM IN Pt Location: [facility] Date/Time: 08/12/19 0812 Primary Care Physician: HONEY CUELLAR MD Technologist(s): BELINDA BENDER Procedure(s): [id number] RAD/CHEST 1 VIEW Signed CHEST 1 VIEW CLINICAL HISTORY: Configuration position of PICC line. COMPARISON: Previous day. TECHNIQUE: One view of the chest was obtained. FINDINGS: The placement of a PICC line right arm approach with the tip lies in the right atrium. It is suggested to be pulled back about 6 cm. There is an infiltrate in the left lower lobe, unchanged. The right lung is clear. The heart is borderline in size. The bony structures and soft tissues are normal. IMPRESSION: TIP OF THE PICC LINE LIES IN THE RIGHT ATRIUM. IT IS SUGGESTED TO BE PULLED BACK ABOUT 6 CM. LEFT LOWER LOBE INFILTRATE, UNCHANGED. Signed by: Rox Emerson MD on 08/12/2019 9:01 AM Transcribed By: [employer] SIGNED <electronically signed by ROX EMERSON MD > 0 2 ROX EMERSON MD August 13, 2019 2:10am ZAID MCKENZIE MD completed Patient: WALTER MAZA MR#: [id number] : 1965 Pt Location: [facility] Date/Time: 08/11/19 Primary Care Physician: HONEY CUELLAR MD Signed [facility] Test Date: 2019-08-11 Pat Name: WALTER MAZA Department: Room: Gender: Female Can Line Examiner: SUZANNE : 1965 Requested By: Kathy ROBERTSON Order Number: [id number] Reading MD: Va Johnson Measurements Intervals [place] Rate: 103 P: 59 KS: 173 QRS: -14 QRSD: 85 T: 121 QT: 310 QTc: 406 Interpretive Statements Sinus tachycardia LVH with secondary repolarization abnormality Baseline wander in lead(s) V5 Electronically Signed On 08-13-2019 2:10:33 MANAGER HRIS by Va Johnson Transcribed By: [employer] SIGNED <electronically signed by ZAID MCKENZIE MD> 9 9 ZAID MCKENZIE MD August 12, 2019 10:06am ROX EMERSON MD completed Patient: WALTER MAZA MR#: [id number] : [address] HONEY CUELLAR MD Pt Status: ADM IN Pt Location: [facility] Date/Time: 08/12/19932 Primary Care Physician: HONEY CUELLAR MD Technologist(s): DORY MEDRANO Procedure(s): [id number] RAD/CHEST 1 VIEW Signed CHEST 1 VIEW CLINICAL HISTORY: Compare position of PICC line. COMPARISON: 0823 hours the same day. TECHNIQUE: One view of the chest was obtained. FINDINGS: There is been adjustment of the PICC line with the tip lying in the superior vena cava. There is an infiltrate in the left lower lobe. The heart is borderline in size. The bony structures and soft tissues are normal. IMPRESSION: GOOD POSITION OF THE PICC LINE WITH THE TIP LYING IN THE SUPERIOR VENA CAVA CENTIMETERS ABOVE THE AXIAL CAVOATRIAL JUNCTION. LEFT LOWER LOBE INFILTRATE. Signed by: Rox Emerson MD on 08/12/2019 10:06 AM Transcribed By: [employer] SIGNED <electronically signed by ROX EMERSON MD > [id number] ROX EMERSON MD August 12, 2019 11:30am ROX EMERSON MD completed Patient: WALTER MAZA MR#: [id number] : [address] HONEY CUELLAR MD Pt Status: ADM IN Pt Location: [facility] Date/Time: 08/12/19 0800 Primary Care Physician: HONEY CUELLAR MD Technologist(s): CADEN NAM Procedure(s): [id number] CT/CT CHEST WITH CONTRAST Signed CT scan of the chest with contrast Exam Date: 08/11/2019 7:20 PM CLINICAL HISTORY: Pneumonia. COMPARISON : CT angiogram of the chest on 02/20/2018 TECHNIQUE: Helical axial CT images through the chest were obtained following IV contrast administration. Coronal and sagittal reconstructed images were obtained. FINDINGS: Lungs: There is a 4 mm noncalcified nodule in the right liver lobe seen on image 65 series 3, unchanged from previous study. There is consolidation involving the left lower lobe associated with volume loss. Air bronchograms are noted.. Mediastinum: There is no mediastinal, hilar, axillary or retrocrural adenopathy. There is a 2.2 cm cystic lesion in the right lobe of thyroid gland, unchanged. Heart: The heart is enlarged. Bones: There is normal bony mineralization. Bony thorax is unremarkable. Upper abdomen: Visualized portions of the upper abdomen are unremarkable. There is no evidence for adrenal mass. IMPRESSION: LEFT LOWER LOBE CONSOLIDATION, UNCHANGED. 4 MM NONCALCIFIED NODULE WITHOUT CHANGE SINCE 02/20/2018. 2.2 CM CYSTIC LESION IN THE RIGHT LOBE OF THYROID GLAND, UNCHANGED. This exam was performed according to our department optimization program which includes automated exposure control, adjustment of the mA and/or kv according to patient size and/or use of iterative reconstruction technique. Signed by: Rox Emerson MD on 08/12/2019 11:30 AM Transcribed By: [employer] SIGNED <electronically signed by ROX EMERSON MD > [id number] ROX EMERSON MD August 16, 2019 2:37pm ZAID MCKENZIE MD completed Patient: WALTER MAZA MR#: [id number] : 1965 Pt Location: [facility] Date/Time: 08/13/19 Primary Care Physician: HONEY CUELLAR MD Signed [facility] Test Date: 2019-08-13 Pat Name: WALTER MAZA Department: Room: 220 M Gender: Female Can Line Examiner: SUZANNE : 1965 Requested By: MD CUELLAR Order Number: [id number] Reading MD: Va Johnson.A.A.C Measurements Intervals [place] Rate: 74 P: 70 KS: 177 QRS: 15 QRSD: 94 T: 61 QT: 397 QTc: 441 Interpretive Statements Sinus rhythm Low voltage, extremity leads Consider left ventricular hypertrophy Abnormal T, consider ischemia, anterior leads Electronically Signed On 08-16-2019 14:37:23 MANAGER HRIS by Va Johnson.A.A.C Transcribed By: [email or web address] SIGNED <electronically signed by ZAID MCKENZIE MD> 36 [phone] ZAID MCKENZIE MD Health Concerns No known health concerns documented Advance Directives Advance Directive Response Recorded Date/Time Advance Directives No September 23, 2015 11:34pm Advance Directive on File No August 11, 2019 10:56pm Directive to Physicians/Living Will No September 23, 2015 11:34pm Health Care Proxy No September 23, 2015 11:34pm Organ Donor No September 23, 2015 11:34pm Medical Power of Disposition Clerk No September 23, 2015 11:34pm Patient/Family Given Education Material R/T No August 11, 2019 10:56pm Directives? Chief Complaint and Reason for Visit Chief Complaint CHEST PAIN,CHF,SLE EXACERBATION Reason for Visit Weakness Rheumatoid arthritis Atypical chest pain Chest pain Shortness of breath SLE (systemic lupus erythematosus) Scleroderma Gastroparesis History of incision of pericardium Muscle wasting Weakness HTN (hypertension) Left lower lobe pneumonia Depression Encounters Encounter Location(s) Arrival/Admit Date Discharge/Depart Date Provider(s) [facility] [place] [facility] [place] [facility], [facility] Discharged [place] July 25, 2019 July 26, 2019 VEGAWILBER Inpatient (obs) [facility] 12:44am 11:10am Ctr Recent Diagnosis Onset Date Weakness Rheumatoid arthritis Atypical chest pain Chest pain Shortness of breath SLE (systemic lupus erythematosus) Scleroderma Gastroparesis Muscle wasting Weakness HTN (hypertension) Left lower lobe pneumonia Depression Assessments Diagnosis Onset Date Resolution Status Weakness Active Rheumatoid arthritis Active Atypical chest pain Active Chest pain Active Shortness of breath Active SLE (systemic lupus erythematosus) Active Scleroderma Active Gastroparesis Active Muscle wasting Active Weakness Active HTN (hypertension) Active Left lower lobe pneumonia Active Depression Active Functional Status No Functional Status information available Goals No Goals Information Available Immunizations No Immunization Information Available Mental Status No Mental Status Information Available Medical Equipment No Medical Equipment Information available Insurance Providers Guarantor Walter Maza Address [address] [place] [id number] Contact Info. Home Phone: Payer Policy Id Coverage Id Subscriber's Subscriber Id Effective Expiration Name Date Date Brendon Strafford [id number] Jovani Maza [id number] 2015 [facility] Plan of Treatment Future Tests Future scheduled test information is unavailable Pending Tests Test Name Date ordered Arterial Blood pH August 11, 2019 7:45pm Arterial Blood Partial Pressure CO2 August 11, 2019 7:45pm Arterial Blood Partial Pressure O2 August 11, 2019 7:45pm Arterial Blood HCO3 August 11, 2019 7:45pm Arterial Blood Base Excess August 11, 2019 7:45pm Arterial Blood Total CO2 August 11, 2019 7:45pm Arterial Blood Oxygen Saturation August 11, 2019 7:45pm Oxygen Content August 11, 2019 7:45pm Future Visits Future appointment information is unavailable Referrals to Other Providers Referral information is unavailable Future Procedures Future procedure information is unavailable Future Medications Future medication information is unavailable Patient Instructions Cefdinir capsules Nonspecific Chest Pain, Adult, [id number] Systemic Lupus Erythematosus, Adult Azithromycin tablets Heart Failure Social History Smoking Status Status Date of Observation Never smoked tobacco (finding) August 11, 2019 10:56pm Observation Status Observation Response Date of Response Hx Physical Abuse No August 11, 2019 11:02pm Assigned Sex Female Vital Signs Vital Reading Result Collection Date/Time Hospital Discharge Instructions Additional Instructions Instructions Physician Documentation Discharge Instructions Follow-up with Dr. Cuellar in 2 weeks. The plan is to admit to rehab from home.
[2019-08-21 06:39] VITALS: BMI 18.3
[2019-08-21] MEDS: MYCOPHENOLATE 200 MG/ML PO SCH ×2 (08:00→18:58)
[2019-08-21] MEDS: AZITHROMYCIN 250 MG TAB PO SCH (08:00)
[2019-08-21] MEDS ORDERED: CEFDINIR 300 MG PO SCH (08:00)
[2019-08-21] MEDS: CEFDINIR 300 MG CAP PO SCH ×2 (08:00→18:59)
[2019-08-21] MEDS ORDERED: LOSARTAN POTASSIUM 50 MG TABLET PO SCH (08:00)
[2019-08-21] MEDS: predniSONE 20 MG TAB PO SCH (08:00)
[2019-08-21 09:27] LABS: Basophils % 0.9 % (0-1.3); Hematocrit 37.2 % (36.0-45.0); Lymphocytes % 23.8 % (15.3-44.8); MPV 8.8 fL (7.6-11.3); RBC Red Blood Cell Count 5.07 M/uL (3.86-4.86)
[2019-08-21 10:13] LABS: Urine Appearance CLEAR; Urine Bilirubin NEGATIVE (NEG); Urine Blood NEGATIVE (NEG); Urine Color YELLOW; Urine Glucose NEGATIVE (NEG); Urine Protein NEGATIVE (NEG); Urine Specific Gravity 1.015 (1.005-1.030); Urine Urobilinogen 0.2 mg/dL (0.2-1.0); Urine pH 6.5 (5.0-7.0)
[2019-08-21 10:49] LABS: Albumin 3.5 g/dL (3.4-5.0); BUN Blood Urea Nitrogen 12 mg/dL (7-18); Bicarbonate 28 mmol/L (21-32); Glucose Level 56 mg/dL (74-106); Magnesium 1.9 mg/dL (1.8-2.4); Potassium 3.6 mmol/L (3.5-5.1); Sodium Level 142 mmol/L (136-145)
[2019-08-21 11:47] LABS: Calcium Oxalate Crystals- Ur FEW (NONE SEEN); Urine Bacteria 20-50 /HPF (<20); Urine Culture Reflex Order REFLEXED; Urine RBC <5 /HPF (NONE SEEN)
--- NOTE | 2019-08-21 12:26 | FAST ---
ENCOUNTER DATE AND TIME: 08/21/2019 08:00 (MANAGER TALENT MANAGEMENT) NAME WALTER TIWARI DATE OF : 1965 DATE OF ADMISSION: 08/21/2019 06:12 (MANAGER TALENT MANAGEMENT) PHONE: AGE: 54 SSN# [id number] GENDER: Female ENCOUNTER PHYSICIAN: Dr. Jared Sands M.D. ADMISSION DIAGNOSIS: - Other Disabling Impairments 13 - Other Disabling Impairments (13) systemic lupus erythmatosus. ROLL LEFT AND RIGHT: ROLL LEFT AND RIGHT - STEP 1: Does the patient complete the activity by him/herself with no assistance (physical, verbal/nonverbal cueing, setup/clean-up)? No. ROLL LEFT AND RIGHT - STEP 2: Does the patient need only setup/clean-up assistance from one helper? No. ROLL LEFT AND RIGHT - STEP 3: Does the patient need only verbal/nonverbal cueing or touching/steadying/contact guard assistance fro m one helper? Yes. 1. [id number] ADMISSION PERFORMANCE: Supervision or touching assistance CODE: [id number] - COMMENTS: Patient requires to use some help from side rail to complete rolling to sides SIT TO LYING: SIT TO LYING - STEP 1: Does the patient complete the activity by him/herself with no assistance (physical, verbal/nonverbal cueing, setup/clean-up)? No. SIT TO LYING - STEP 2: Does the patient need only setup/clean-up assistance from one helper? No. SIT TO LYING - STEP 3: Does the patient need only verbal/nonverbal cueing or touching/steadying/contact guard assistance fro m one helper? No. SIT TO LYING - STEP 4: Does the patient need physical assistance - for example lifting or trunk support from one helper - wi th the helper providing less than half of the effort? Yes. 1. [id number] ADMISSION PERFORMANCE: Partial/moderate assistance CODE: [id number] - COMMENTS: Patient needed help in placing Both Legs to bed LYING TO SITTING: LYING TO SITTING ON SIDE OF BED - STEP 1: Does the patient complete the activity by him/herself with no assistance (physical, verbal/nonverbal cueing, setup/clean-up)? No. LYING TO SITTING ON SIDE OF BED - STEP 2: Does the patient need only setup/clean-up assistance from one helper? No. LYING TO SITTING ON SIDE OF BED - STEP 3: Does the patient need only verbal/nonverbal cueing or touching/steadying/contact guard assistance fro m one helper? No. LYING TO SITTING ON SIDE OF BED - STEP 4: Does the patient need physical assistance - for example lifting or trunk support from one helper - wi th the helper providing less than half of the effort? Yes. 1. [id number] ADMISSION PERFORMANCE: Partial/moderate assistance CODE: [id number] - COMMENTS: Patient requires assistance in repositioning BLE to achieve upright sitting SIT TO STAND: SIT TO STAND - STEP 1: Does the patient complete the activity by him/herself with no assistance (physical, verbal/nonverbal cueing, setup/clean-up)? No. SIT TO STAND - STEP 2: Does the patient need only setup/clean-up assistance from one helper? No. SIT TO STAND - STEP 3: Does the patient need only verbal/nonverbal cueing or touching/steadying/contact guard assistance fro m one helper? No. SIT TO STAND - STEP 4: Does the patient need physical assistance - for example lifting or trunk support from one helper - wi th the helper providing less than half of the effort? No. SIT TO STAND - STEP 5: Does the patient need physical assistance - for example lifting or trunk support from one helper - wi th the helper providing more than half of the effort? Yes. 1. [id number] ADMISSION PERFORMANCE: Substantial/maximal assistance CODE: [id number] - COMMENTS: Patient unable to stand up without Max A from a regular chair. TRANSFERS: BED, CHAIR: CHAIR/[id number] TRANSFER - STEP 1: Does the patient complete the activity by him/herself with no assistance (physical, verbal/nonverbal cueing, setup/clean-up)? No. CHAIR/[id number] TRANSFER - STEP 2: Does the patient need only setup/clean-up assistance from one helper? No. CHAIR/[id number] TRANSFER - STEP 3: Does the patient need only verbal/nonverbal cueing or touching/steadying/contact guard assistance fro m one helper? No. CHAIR/[id number] TRANSFER - STEP 4: Does the patient need physical assistance - for example lifting or trunk support from one helper - wi th the helper providing less than half of the effort? No. CHAIR/[id number] TRANSFER - STEP 5: Does the patient need physical assistance - for example lifting or trunk support from one helper - wi th the helper providing more than half of the effort? Yes. 1. [id number] ADMISSION PERFORMANCE: Substantial/maximal assistance CODE: 02 [id number] - COMMENTS: Patient unable to achieve standing from a regular height of a seat without Max A TRANSFER TOILET: TOILET TRANSFER - STEP 1: Does the patient complete the activity by him/herself with no assistance (physical, verbal/nonverbal cueing, setup/clean-up)? No. TOILET TRANSFER - STEP 2: Does the patient need only setup/clean-up assistance from one helper? No. TOILET TRANSFER - STEP 3: Does the patient need only verbal/nonverbal cueing or touching/steadying/contact guard assistance fro m one helper? No. TOILET TRANSFER - STEP 4: Does the patient need physical assistance - for example lifting or trunk support from one helper - wi th the helper providing less than half of the effort? No. TOILET TRANSFER - STEP 5: Does the patient need physical assistance - for example lifting or trunk support from one helper - wi th the helper providing more than half of the effort? Yes. 1. [id number] ADMISSION PERFORMANCE: Substantial/maximal assistance CODE: 02 TRANSFERS: CAR: CAR TRANSFER - STEP 1: Does the patient complete the activity by him/herself with no assistance (physical, verbal/nonverbal cueing, setup/clean-up)? No. CAR TRANSFER - STEP 2: Does the patient need only setup/clean-up assistance from one helper? No. CAR TRANSFER - STEP 3: Does the patient need only verbal/nonverbal cueing or touching/steadying/contact guard assistance fro m one helper? No. CAR TRANSFER - STEP 4: Does the patient need physical assistance - for example lifting or trunk support from one helper - wi th the helper providing less than half of the effort? Yes. 1. [id number] ADMISSION PERFORMANCE: Partial/moderate assistance CODE: 03 [id number] - COMMENTS: Patient will be needing assistance with BLE in/out of car, min A with her SUV but Max A with [facility] [place]. WALK 10 FEET: WALK 10 FEET - STEP 1: Does the patient complete the activity by him/herself with no assistance (physical, verbal/nonverbal cueing, setup/clean-up)? No. WALK 10 FEET - STEP 2: Does the patient need only setup/clean-up assistance from one helper? No. WALK 10 FEET - STEP 3: Does the patient need only verbal/nonverbal cueing or touching/steadying/contact guard assistance fro m one helper? Yes. 1. [id number] ADMISSION PERFORMANCE: Supervision or touching assistance CODE: 04 [id number] - COMMENTS: Pt requires supervision due to general weakness and high risks for falls. Gait without AD. WALK 50 FEET: WALK 50 FEET - STEP 1: Does the patient complete the activity by him/herself with no assistance (physical, verbal/nonverbal cueing, setup/clean-up)? No. WALK 50 FEET - STEP 2: Does the patient need only setup/clean-up assistance from one helper? No. WALK 50 FEET - STEP 3: Does the patient need only verbal/nonverbal cueing or touching/steadying/contact guard assistance fro m one helper? Yes. 1. [id number] ADMISSION PERFORMANCE: Supervision or touching assistance CODE: 04 [id number] - COMMENTS: Gait without AD WALK 150 FEET: WALK 150 FEET - STEP 1: Does the patient complete the activity by him/herself with no assistance (physical, verbal/nonverbal cueing, setup/clean-up)? No. WALK 150 FEET - STEP 2: Does the patient need only setup/clean-up assistance from one helper? No. WALK 150 FEET - STEP 3: Does the patient need only verbal/nonverbal cueing or touching/steadying/contact guard assistance fro m one helper? Yes. 1. [id number] ADMISSION PERFORMANCE: Supervision or touching assistance CODE: 04 [id number] - COMMENTS: Gait without AD WALK 10 FEET UNEVEN: WALKING 10 FEET ON UNEVEN SURFACES - STEP 1: Does the patient complete the activity by him/herself with no assistance (physical, verbal/nonverbal cueing, setup/clean-up)? No. WALKING 10 FEET ON UNEVEN SURFACES - STEP 2: Does the patient need only setup/clean-up assistance from one helper? No. WALKING 10 FEET ON UNEVEN SURFACES - STEP 3: Does the patient need only verbal/nonverbal cueing or touching/steadying/contact guard assistance fro m one helper? Yes. 1. [id number] ADMISSION PERFORMANCE: Supervision or touching assistance CODE: 04 [id number] - COMMENTS: Pt requires CGA with uneven surfaces. 1 STEP (CURB): 1 STEP CURB - STEP 1: Does the patient complete the activity by him/herself with no assistance (physical, verbal/nonverbal cueing, setup/clean-up)? No. 1 STEP CURB - STEP 2: Does the patient need only setup/clean-up assistance from one helper? No. 1 STEP CURB - STEP 3: Does the patient need only verbal/nonverbal cueing or touching/steadying/contact guard assistance fro m one helper? No. 1 STEP CURB - STEP 4: Does the patient need physical assistance - for example lifting or trunk support from one helper - wi th the helper providing less than half of the effort? Yes. 1. [id number] ADMISSION PERFORMANCE: Partial/moderate assistance CODE: [id number] - COMMENTS: Without hand support, pt requires Min A to be able to make a step due to hip flexors weakness 4 STEPS: 4 STEPS - STEP 1: Does the patient complete the activity by him/herself with no assistance (physical, verbal/nonverbal cueing, setup/clean-up)? No. 4 STEPS - STEP 2: Does the patient need only setup/clean-up assistance from one helper? No. 4 STEPS - STEP 3: Does the patient need only verbal/nonverbal cueing or touching/steadying/contact guard assistance fro m one helper? No. 4 STEPS - STEP 4: Does the patient need physical assistance - for example lifting or trunk support from one helper - wi th the helper providing less than half of the effort? Yes. 1. [id number] ADMISSION PERFORMANCE: Partial/moderate assistance CODE: 12 STEPS: 12 STEPS - STEP 1: Does the patient complete the activity by him/herself with no assistance (physical, verbal/nonverbal cueing, setup/clean-up)? No. 12 STEPS - STEP 2: Does the patient need only setup/clean-up assistance from one helper? No. 12 STEPS - STEP 3: Does the patient need only verbal/nonverbal cueing or touching/steadying/contact guard assistance fro m one helper? No. 12 STEPS - STEP 4: Does the patient need physical assistance - for example lifting or trunk support from one helper - wi th the helper providing less than half of the effort? Yes. 1. [id number] ADMISSION PERFORMANCE: Partial/moderate assistance CODE: 03 PICKING UP OBJECT: PICKING UP OBJECT - STEP 1: Does the patient complete the activity by him/herself with no assistance (physical, verbal/nonverbal cueing, setup/clean-up)? No. PICKING UP OBJECT - STEP 2: Does the patient need only setup/clean-up assistance from one helper? No. PICKING UP OBJECT - STEP 3: Does the patient need only verbal/nonverbal cueing or touching/steadying/contact guard assistance fro m one helper? No. PICKING UP OBJECT - STEP 4: Does the patient need physical assistance - for example lifting or trunk support from one helper - wi th the helper providing less than half of the effort? Yes. 1. [id number] ADMISSION PERFORMANCE: Partial/moderate assistance CODE: 03 [id number] - COMMENTS: Pt requires Mod A when picking up an item from the floor. DOES THE PATIENT USE A WHEELCHAIR/SCOOTER? Q1. DOES THE PATIENT USE A WHEELCHAIR/SCOOTER?: Yes CODE: 1 WHEEL 50 FEET WITH TWO TURNS: WHEEL 50 FEET WITH TWO TURNS - STEP 1: Does the patient complete the activity by him/herself with no assistance (physical, verbal/nonverbal cueing, setup/clean-up)? Yes. 1. [id number] ADMISSION PERFORMANCE: Independent CODE: 06 INDICATE THE TYPE OF WHEELCHAIR/SCOOTER USED: RR1. INDICATE THE TYPE OF WHEELCHAIR/SCOOTER USED.: Manual CODE: 1 WHEEL 150 FEET: WHEEL 150 FEET - STEP 1: Does the patient complete the activity by him/herself with no assistance (physical, verbal/nonverbal cueing, setup/clean-up)? No. WHEEL 150 FEET - STEP 2: Does the patient need only setup/clean-up assistance from one helper? No. WHEEL 150 FEET - STEP 3: Does the patient need only verbal/nonverbal cueing or touching/steadying/contact guard assistance fro m one helper? Yes. 1. [id number] ADMISSION PERFORMANCE: Supervision or touching assistance CODE: 04 [id number] - COMMENTS: Supervision/SBA with w/c mobility facility distances INDICATE THE TYPE OF WHEELCHAIR/SCOOTER USED: SS1. INDICATE THE TYPE OF WHEELCHAIR/SCOOTER USED.: Manual CODE: 1 BLADDER AND BOWEL: CODE: EXPR CODE: EXPR SIGNATURE PANEL: The following modified sections: 1. [id number] Admission Performance, 1. CF2414Q Admission Performance, LD1874X - Comments:, AD7239K - Comments:, 1. LE0362B Admission Performance, TC1787J - Comments:, 1. G W2505B Admission Performance, DL2795Q - Comments:, 1. OH6139Q Admission Performance, HC5691K - Commen ts:, GW0467K - Comments:, MS7415G - Comments:, IC3507H - Comments:, 1. JC3214N Admission Performance, 1. IT5731L Admission Performance, FM1889G - Comments:, 1. LY3851C Admission Performance, 1. MQ7896V Admission Performance, BI3950Q - Comments:, 1. XE9996D Admission Performance, 1. EF0344D Admission Pe rformance, 1. AL9423P Admission Performance, UQ3529N - Comments:, VB8225W - Comments:, AY8045C - Comm ents:, PG1151B - Comments:, VG2026T - Comments:, 1. FY9842E Admission Performance, HM5379H - Comments :, 1. LN4933Y Admission Performance, AS4788U - Comments:, 1. LQ7133E Admission Performance, 1. DC9145 O Admission Performance, 1. PI5993A Admission Performance, TR2583B - Comments:, Q1. Does the patient use a wheelchair/scooter?, 1. HZ8064H Admission Performance, RR1. Indicate the type of wheelchair/sco oter used., 1. WD8241C Admission Performance, Code, AP5901I - Comments:, SS1. Indicate the type of wh eelchair/scooter used. were [electronically] signed by Luis Snow on Sat Aug 21 2019 12:25:33 GM T-0600 (Central Standard Time)
--- NOTE | 2019-08-21 13:09 | FAST ---
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 Jared Sands M.D. ADMISSION DIAGNOSIS: - Other Disabling Impairments 13 - Other Disabling Impairments (13) systemic lupus erythmatosus. EATING: EATING - STEP 1: Does the patient complete the activity by him/herself with no assistance (physical, verbal/nonverbal cueing, setup/clean-up)? Yes. 1. [id number] ADMISSION PERFORMANCE: Independent CODE: 06 ORAL HYGIENE: ORAL HYGIENE - STEP 1: Does the patient complete the activity by him/herself with no assistance (physical, verbal/nonverbal cueing, setup/clean-up)? Yes. 1. [id number] ADMISSION PERFORMANCE: Independent CODE: 06 TOILETING HYGIENE: TOILETING HYGIENE - STEP 1: Does the patient complete the activity by him/herself with no assistance (physical, verbal/nonverbal cueing, setup/clean-up)? No. TOILETING HYGIENE - STEP 2: Does the patient need only setup/clean-up assistance from one helper? No. TOILETING HYGIENE - STEP 3: Does the patient need only verbal/nonverbal cueing or touching/steadying/contact guard assistance fro m one helper? No. TOILETING HYGIENE - STEP 4: Does the patient need physical assistance - for example lifting or trunk support from one helper - wi th the helper providing less than half of the effort? No. TOILETING HYGIENE - STEP 5: Does the patient need physical assistance - for example lifting or trunk support from one helper - wi th the helper providing more than half of the effort? Yes. 1. [id number] ADMISSION PERFORMANCE: Substantial/maximal assistance CODE: 02 BATHING: SHOWER/BATHE SELF - STEP 1: Does the patient complete the activity by him/herself with no assistance (physical, verbal/nonverbal cueing, setup/clean-up)? No. SHOWER/BATHE SELF - STEP 2: Does the patient need only setup/clean-up assistance from one helper? No. SHOWER/BATHE SELF - STEP 3: Does the patient need only verbal/nonverbal cueing or touching/steadying/contact guard assistance fro m one helper? No. SHOWER/BATHE SELF - STEP 4: Does the patient need physical assistance - for example lifting or trunk support from one helper - wi th the helper providing less than half of the effort? Yes. 1. [id number] ADMISSION PERFORMANCE: Partial/moderate assistance CODE: 03 DRESSING - UPPER BODY: DRESSING - UPPER BODY - STEP 1: Does the patient complete the activity by him/herself with no assistance (physical, verbal/nonverbal cueing, setup/clean-up)? No. DRESSING - UPPER BODY - STEP 2: Does the patient need only setup/clean-up assistance from one helper? No. DRESSING - UPPER BODY - STEP 3: Does the patient need only verbal/nonverbal cueing or touching/steadying/contact guard assistance fro m one helper? No. DRESSING - UPPER BODY - STEP 4: Does the patient need physical assistance - for example lifting or trunk support from one helper - wi th the helper providing less than half of the effort? Yes. 1. [id number] ADMISSION PERFORMANCE: Partial/moderate assistance CODE: 03 DRESSING - LOWER BODY: DRESSING - LOWER BODY - STEP 1: Does the patient complete the activity by him/herself with no assistance (physical, verbal/nonverbal cueing, setup/clean-up)? No. DRESSING - LOWER BODY - STEP 2: Does the patient need only setup/clean-up assistance from one helper? No. DRESSING - LOWER BODY - STEP 3: Does the patient need only verbal/nonverbal cueing or touching/steadying/contact guard assistance fro m one helper? No. DRESSING - LOWER BODY - STEP 4: Does the patient need physical assistance - for example lifting or trunk support from one helper - wi th the helper providing less than half of the effort? No. DRESSING - LOWER BODY - STEP 5: Does the patient need physical assistance - for example lifting or trunk support from one helper - wi th the helper providing more than half of the effort? Yes. 1. [id number] ADMISSION PERFORMANCE: Substantial/maximal assistance CODE: 02 PUTTING ON/TAKING OFF FOOTWEAR: FOOTWEAR - STEP 1: Does the patient complete the activity by him/herself with no assistance (physical, verbal/nonverbal cueing, setup/clean-up)? No. FOOTWEAR - STEP 2: Does the patient need only setup/clean-up assistance from one helper? No. FOOTWEAR - STEP 3: Does the patient need only verbal/nonverbal cueing or touching/steadying/contact guard assistance fro m one helper? No. FOOTWEAR - STEP 4: Does the patient need physical assistance - for example lifting or trunk support from one helper - wi th the helper providing less than half of the effort? No. FOOTWEAR - STEP 5: Does the patient need physical assistance - for example lifting or trunk support from one helper - wi th the helper providing more than half of the effort? No. FOOTWEAR - STEP 6: Does the helper provide all of the effort? OR Is the assistance of two or more helpers required to co mplete the activity? Yes. 1. [id number] ADMISSION PERFORMANCE: Dependent CODE: 01 DOES THE PATIENT USE A WHEELCHAIR/SCOOTER? CODE: EXPR INDICATE THE TYPE OF WHEELCHAIR/SCOOTER USED: CODE: EXPR INDICATE THE TYPE OF WHEELCHAIR/SCOOTER USED: CODE: EXPR BLADDER AND BOWEL: CODE: EXPR CODE: EXPR SIGNATURE PANEL: The following modified sections: 1. [id number] Admission Performance, 1. PB7562O Admission Performance, 1. MH8008C Admission Performance, 1. BW3105C Admission Performance, 1. IT3987s Admission Performance, 1. WI7067z Admission Performance, 1. UA4584d Admission Performance, 1. UP0252l Admission Performance , 1. DD5822t Admission Performance were [electronically] signed by Kiki Milligan OT on Sat Aug 21 2019 13:08:51 GMT-0600 (Central Standard Time)
[2019-08-21] MEDS ORDERED: MELATONIN 3 MG TABLET PO PRN (19:58)
--- NOTE | 2019-08-21 20:04 | R.HP ---
FACILITY: [facility] ENCOUNTER DATE AND TIME: 08/21/2019 20:00 (DRAFTER ENGINEERING) MR#: [id number] NAME WALTER TIWARI ADDRESS: [address] [place] [address]: [place] [id number] PHONE: DATE OF : 1965 AGE: 54 SSN# [id number] GENDER: Female DEXTERITY Right-handed MARITAL STATUS Unknown RACE White PRE-HOSPITAL LIVING SETTING 01 - Home (private home/apt. board/care, assisted living, prison, transitional living) PRE-HOSPITAL LIVING WITH Family/Relatives ENCOUNTER PHYSICIAN: Dr. Jared Sands M.D. REFERRING DOCTOR: Addison Michael DATE OF ADMISSION: 08/21/2019 06:12 (DRAFTER ENGINEERING) REFERRING FACILITY [facility] HOME TYPE AND DETAILS: Type of home: single family house # of steps to enter the residence: 0 # of steps within the residence: 0 # of levels in the residence: 1 ADMISSION DIAGNOSIS: systemic lupus erythmatosus ONSET DATE: 08/11/2019 PRIMARY DIAGNOSIS-RELATED SURGERIES: No surgeries related to the primary diagnosis were performed. SECONDARY/COMORBID DIAGNOSES (TIERED): - N/A left lower lobe pneumonia scleroderma gastroparesis muscle wasting weakness hypertension depression CHF exacerbation HISTORY OF PRESENT ILLNESS (HPI): Pt. is a 54 yo Right-handed white female. On 08/11/2019 she was admitted to [facility] with diagnosis systemic lupus erythmatos us. Her impairment category is Other Disabling Impairments 13 - Other Disabling Impairments (13). Pre-morbidly, Pt. was independent/mod-I in Self-Care, Ambulation, and Sphincter Control; and she had good Endurance and Safety Awareness. Currently, she has deficits of Locomotion, Self-Care, Endurance, Transfers Control, Ambulation, Safet y Awareness and Self-Care, and Functional mobility. Pt. is now referred to [facility] for acute in-patient rehabilitation in order to maximize patient's functional independence in activities of daily living, strength, ROM, and mobi lity. Patient has realistic goal of being discharged at assistance level 6-Carlos Manuel to reside at Home with Fam justina/Relatives. Patient was admitted to [facility] for Lupus exacerbation and CHF exacerbation. Patient was independent prior to admission and is working with with therapy. MEDICATION ALLERGIES: No Known Drug Allergies (NKDA) ENVIRONMENTAL ALLERGIES: - Substance Allergies None Known - Other Allergies None Known PAST MEDICAL HISTORY: CHF exacerbation depression gastroparesis hypertension left lower lobe pneumonia muscle wasting scleroderma weakness FAMILY HISTORY: Family history is not contributory. SOCIAL HISTORY: - Home Living Family/Relatives REVIEW OF SYSTEMS: - Gen No Chills No Fatigue No Fever - Eyes No Double Vision No itchiness - ENMT No Difficulty Swallowing - CVS No Chest Discomfort No Chest Pain Fatigue No Weight Gain - Resp No Cough No Shortness of Breath - GI Continent No Abdominal Pain No Constipation No Diarrhea - Continent No Kidney Pain No Painful Urination No Urinary Urgency - MSK No Joint Pain Muscle Cramps Stiffness - Skin No Itching No Rash No Suspicious Lesions - Neuro Coordination Difficulty No Difficulty with Concentration No Memory Loss No Seizures Weakness - Psych No Anxiety No Depression No HIV Exposure No Persistent Infections No Seasonal Allergies - Endo No Cold/Heat Intolerance No Excessive Hunger No Excessive Thirst No Excessive Urination PHYSICAL EXAM - Gen Alert and awake Lying in bed No apparent distress Oriented to: person, time, and place - Skin No breakdown No abnormalities - Eyes No abnormalities - ENMT No abnormalities - Neck No abnormalities - CVS RRR - Chest Upper airway congestion. - Resp Bilateral congestion. - Abd Soft - GI Soft Deferred - No abnormalities - Ext Moderate edema in both lower extremities. - MSK 4/5 weakness in both lower extremities. - Neuro 4/5 strength bilaterally lower extremities. - Psych No abnormalities VITAL SIGNS Temperature: 97.9 F SBP/DBP: 112/69 Pulse: 64 Resp: 16 NURSING: - Shower allowing shower ACTIVITIES OOB only with supervision QI SCORES: - Self-Care A. Eating 05-Setup or clean-up assistance B. Oral hygiene 05-Setup or clean-up assistance C. Toileting hygiene 04-Supervision or touching assistance E. Shower/bathe self 88-Not attempted due to medical condition or safety concerns F. Upper body dressing 05-Setup or clean-up assistance G. Lower body dressing 04-Supervision or touching assistance H. Putting on/taking off footwear 04-Supervision or touching assistance - Mobility A. Roll left and right 04-Supervision or touching assistance B. Sit to lying 05-Setup or clean-up assistance C. Lying to sitting on side of bed 04-Supervision or touching assistance D. Sit to stand 04-Supervision or touching assistance E. Chair/ikw-hy-oeidi transfer 05-Setup or clean-up assistance F. Toilet transfer 04-Supervision or touching assistance G. Car transfer 88-Not attempted due to medical condition or safety concerns I. Walk 10 feet 04-Supervision or touching assistance J. Walk 50 feet with two turns 88-Not attempted due to medical condition or safety concerns K. Walk 150 feet 88-Not attempted due to medical condition or safety concerns L. Walking 10 feet on uneven surfaces 88-Not attempted due to medical condition or safety concerns M. 1 step (curb) 88-Not attempted due to medical condition or safety concerns N. 4 steps 88-Not attempted due to medical condition or safety concerns O. 12 steps 88-Not attempted due to medical condition or safety concerns P. Picking up object 88-Not attempted due to medical condition or safety concerns R. Wheel 50 feet with two turns 88-Not attempted due to medical condition or safety concerns S. Wheel 150 feet 88-Not attempted due to medical condition or safety concerns - Bladder and Bowel Bladder continence 0-Always continent Bowel continence 0-Always continent - Endurance Poor - Balance Fair - Safety Awareness Fair CURRENT FUNC. DEFICITS: Self-Care, Mobility, Endurance, Balance, and Safety Awareness MEDICATIONS: - Other See attached MAR (Medication Administration Record) ASSESSMENT: Pt. is a 54 yo Right-handed white female.On 08/11/2019 she was admitted to [facility] with diagnosis systemic lupus erythmatosus.Her impairment category is Other Disabling Impairments 13 - Other Disabling Impairments (13).Pre-morbidly, Pt. was independent/mod-I in Self-Care, Ambulation , and Sphincter Control; and she had good Endurance and Safety Awareness.Currently, she has deficits of Locomotion, Self-Care, Endurance, Transfers Control, Ambulation, Safety Awareness and Self-Care, a nd Functional mobility.Pt. is now referred to [facility] for acute in-patient rehabilitation in order to maximize patient's functional independence in activities of daily living, strength, ROM, and mobility.- Rehab Goal Patient has realistic goal of being discharged at assistance level 6-Carlos Manuel to reside at Home with Fam justina/Relatives. Patient was admitted to [facility] for Lupus exacerbation and CHF exacerbation. Patient was independent prior to admission and is working with with therapy.REHAB PLAN: - Physical Therapy Gait dysfunction - to improve, our physical therapists will perform initial evaluation of pt's status upon admission and devise an individualized program for Gait Training, and Wheel Chair mobility Inability to transfer - to improve, our physical therapists will perform initial evaluation of pt's s tatus upon admission and devise an individualized program for Bed mobility Need for home safety evaluation - to improve, our physical therapists will perform initial evaluation of pt's status upon admission and devise an individualized program for Home Evaluation Need in caregiver upon discharge - to improve, our physical therapists will perform initial evaluatio n of pt's status upon admission and devise an individualized program for Caregiver Training Edema - to improve, our physical therapists will perform initial evaluation of pt's status upon admi ssion and devise an individualized program for Elevation Training, and Lymphedema Therapy New precaution - to improve, our physical therapists will perform initial evaluation of pt's status u bob admission and devise an individualized program for Patient precaution education Poor endurance - to improve, our physical therapists will perform initial evaluation of pt's status u bob admission and devise an individualized program for Endurance Training Weakness - to improve, our physical therapists will perform initial evaluation of pt's status upon ad mission and devise an individualized program for Aquatic Therapy, Neuromuscular Reeducation, and Stre ngthening Achieving independence - to improve, our physical therapists will perform initial evaluation of pt's status upon admission and devise an individualized program for Community Reintegration Activities - Occupational Therapy ADL deficits - to improve, our occupation therapists will perform initial evaluation of pt's status u bob admission and devise an individualized program for Bathing, Bed mobility, Community Reintegration , Cooking, Dressing, Eating, Fine Motor Skills, Grooming, Homemaking, Kitchen Mobility, Laundry, Lyly ent Education, Safety Awareness, Splinting - Positioning, Transfers(Toilet, Tub, Shower), and Wheel C hair Management Need for hourly caregiver - to improve, our occupation therapists will perform initial evaluation of pt's s tatus upon admission and devise an individualized program for Caregiver Training Weakness - to improve, our occupation therapists will perform initial evaluation of pt's status upon admission and devise an individualized program for Aquatic Therapy, Balance, Endurance, UE ROM, and U E strengthening MEDICAL PLAN: - Diet Type Start Regular - Diet - Liquid Texture Start Regular - Tube Feed Start N/A - Other See attached MAR (Medication Administration Record) - Diet - Solid Texture Regular - Shower shower DISCHARGE PLAN: - Estimated Length of Stay (days) 13. - Consensus on plan Discharge plan has been discussed with primary caregiver. Patient/Family is in agreement with the zoë n. Primary caregiver is in agreement with the plan. - Patient/Family Goals Return home with assistance. - Planned Living Setting Upon Discharge Home, to live with Family/Relatives. SIGNATURE PANEL: (DRAFTER ENGINEERING)
--- NOTE | 2019-08-21 20:05 | PAPE ---
PATIENT: [facility] MR# [id number] REFERRING DOCTOR Addison Michael EVALUATION DATE AND TIME 08/21/2019 20:04 (CONDUCTOR ORCHESTRA) NAME WALTER TIWARI DATE OF 1965 AGE 54 PHONE N# [id number] GENDER female EVALUATING PHYSICIAN Dr. Jared Sands M.D. ADMISSION DIAGNOSIS: systemic lupus erythmatosus ONSET DATE 08/11/2019 SECONDARY/COMORBID DIAGNOSES TIERED: - N/A left lower lobe pneumonia scleroderma gastroparesis muscle wasting weakness hypertension depression CHF exacerbation POST-ADMISSION FUNCTIONAL/MEDICAL STATUS: - Bladder Same accident frequency: Ind - No accidents in the past 7 days - Bowel Same accident frequency: Ind - No accidents in the past 7 days - Walking Same score based on distance walked: 2(3431ft) - Wheelchair Same score based on distance traveled: 2(7725ft) STATUS CHANGE EVALUATION: No change in Functional or Medical Status is identified compared with Pre-Admission screening. PATIENT NEEDS CLOSE MEDICAL SUPERVISION BY A REHABILITATION PHYSICIAN FOR: Coordination of Treatment Team Medical and Co-Morbidity Management PATIENT REQUIRES 24X7 REHAB NURSING FOR MEDICAL AND FUNCTIONAL MGT. OF THE FOLLOWING DEFICITS: Disease Management Medication Management Patient/Family Education Providing Safe Environment PATIENT REQUIRES INTENSIVE, COORDINATED INTERDISCIPLINARY APPROACH TO REHAB: Arranging Home Equipment/Services Discharge Planning Family Intervention/Training Marble Installer/Case Management LIST OF IDENTIFIED AND POTENTIAL PROBLEMS: Alteration in leisure activities Bladder, Incontinence Blood Pressure, Hypertension/hypotension Issues Bowel, Incontinence Depression, Actual or Potential Fluid volume overload related to Congestive Heart Failure (CHF) Infection, Actual or Potential Mobility Impaired Pain, Alteration in Comfort Self Care Deficit Skin Integrity, Actual or Potential Urinary Tract Infection (UTI), Actual or Potential RISK FOR COMPLICATIONS - Hypertension CVA. Hypotension. [place]. TIA. - Depression Serotonin side effects. INTERVENTIONS - Hypertension - Depression Medications. Psycho/social. Safety. PATIENT COULD BE AT RISK FOR COMPLICATIONS FROM ADVERSE MEDICAL CONDITIONS DUE TO HIS/HER COMORBIDITI ES AND THE RIGORS OF THE INTENSIVE REHABILLITATION PROGRAM. METHODS OR INTERVENTIONS TO AVOID COMPLIC ATIONS INCLUDE: - Infection Clinical staff to assess and manage the signs and symptoms of infection including fever, redness, war mth, etc. - Urinary Tract Infection - Falls Patient will be evaluated for Fall Precautions and will be placed on Fall Precautions as indicated pe r protocol. - Skin Breakdown Nursing will assess skin daily using assessment tool and will place on Skin Breakdown Precautions as indicated per protocol. - Pain Clinical staff may employ non-medication methods such as massage, distraction, decrease stimulus, etc . as needed. Clinical staff will assess patient's pain level every shift per protocol to assess and e nsure pain management effectiveness. Medications will be given and the pain level re-assessed. PRELIMINARY PLAN OF CARE: - Physical Therapy Patient needs Physical Therapy for a daily minimum of 1.5 hours at least 5 out of 7 days, to improve: Mobility, Strengthening, Transfers, Stretching, ROM, Endurance, Ability to manage stairs, Gait, and Balance. - Rehabilitation Nursing Patient requires 24x7 Rehabilitation Nursing for: Pain Issues, Identifying and preventing risk factor s, Monitoring and reporting current medical conditions, Assisting with ambulation and transfer, Lynne ting with all ADL-s, Teaching patients about disease process and medications, Family teaching, Provid ing safe environment, Bowel and Bladder Issues, Skin Integrity, and Medication Management. Patient needs Marble Installer and/or Case Management for: Discharge Planning, Arranging Home Equipmen t or Services, and Family Interventions. - Dietary and Nutrition Services Patient needs Dietary and Nutrition Services for: Adequate Nutrition, Nutritional Supplements, and Nu tritional Education. - Occupational Therapy Patient needs Occupational Therapy for a daily minimum of 1.5 hours at least 5 out of 7 days, to impr ove Activities of Daily Living, including: Eating, Grooming, Bathing, Dressing, Toileting, Toilet Tra nsfers, Community Reintegration, Higher functional activities, Adaptive Equipment, Splinting, Househo ld Tasks, and Other activities as determined. QI SCORES: - Self-Care A. Eating 05-Setup or clean-up assistance B. Oral hygiene 05-Setup or clean-up assistance C. Toileting hygiene 04-Supervision or touching assistance E. Shower/bathe self 88-Not attempted due to medical condition or safety concerns F. Upper body dressing 05-Setup or clean-up assistance G. Lower body dressing 04-Supervision or touching assistance H. Putting on/taking off footwear 04-Supervision or touching assistance - Mobility A. Roll left and right 04-Supervision or touching assistance B. Sit to lying 05-Setup or clean-up assistance C. Lying to sitting on side of bed 04-Supervision or touching assistance D. Sit to stand 04-Supervision or touching assistance E. Chair/ygd-yi-vtqtm transfer 05-Setup or clean-up assistance F. Toilet transfer 04-Supervision or touching assistance G. Car transfer 88-Not attempted due to medical condition or safety concerns I. Walk 10 feet 04-Supervision or touching assistance J. Walk 50 feet with two turns 88-Not attempted due to medical condition or safety concerns K. Walk 150 feet 88-Not attempted due to medical condition or safety concerns L. Walking 10 feet on uneven surfaces 88-Not attempted due to medical condition or safety concerns M. 1 step (curb) 88-Not attempted due to medical condition or safety concerns N. 4 steps 88-Not attempted due to medical condition or safety concerns O. 12 steps 88-Not attempted due to medical condition or safety concerns P. Picking up object 88-Not attempted due to medical condition or safety concerns R. Wheel 50 feet with two turns 88-Not attempted due to medical condition or safety concerns S. Wheel 150 feet 88-Not attempted due to medical condition or safety concerns - Bladder and Bowel Bladder continence 0-Always continent Bowel continence 0-Always continent - Endurance Poor - Balance Fair - Safety Awareness Fair POTENTIAL FUNCTIONAL GOALS FOR PATIENT TO ACHIEVE BY DISCHARGE: - Safety Precaution Patient will remain free from falls or injury at time of discharge. - Bed Mobility Patient will perform bed mobility at 4-Smith level of assistance. - Transfers Patient will complete transfers from bed to chair at 4-Smith level of assistance. - Mobility Patient will ambulate 150 ft with 4-Smith level of assistance with RW. PATIENT REHAB POTENTIAL Selina TIWARI is able and expected to receive 3 hours of individualized therapy daily on at least 5 of ever y 7 days Selina TIWARI's prognosis for significant practical improvement within a reasonable period of time appears Good Expected level of measurable improvement will be of a practical value to Selina TIWARI's functional capacit y or adaptations to impairments Has a viable Discharge Plan Medically appropriate; condition is sufficiently stable to participate in intensive rehab program DISCHARGE PLAN: - Estimated Length of Stay (days) 13. - Consensus on plan Discharge plan has been discussed with primary caregiver. Patient/Family is in agreement with the zoë n. Primary caregiver is in agreement with the plan. - Patient/Family Goals Return home with assistance. - Planned Living Setting Upon Discharge Home, to live with Family/Relatives. CONCLUSION ON REHABILITATION NECESSITY: I have evaluated patient's pre-admission functional status and, comparing it to the patient's post-ad mission functional status now, I conclude that the pre-admission assessment was accurate. Patient's c ondition on admission supports the medical necessity of admission to IRF. It is safe to proceed with patient's therapy program. SIGNATURE PANEL: (CONDUCTOR ORCHESTRA)
[2019-08-22] MEDS: LOSARTAN POTASSIUM 25 MG TABLET PO SCH ×2 (07:16→22:18)
[2019-08-22] MEDS: predniSONE 20 MG TAB PO SCH (07:17)
[2019-08-22] MEDS: CEFDINIR 300 MG CAP PO SCH ×2 (07:17→19:26)
[2019-08-22] MEDS: MYCOPHENOLATE 200 MG/ML PO SCH ×2 (07:18→19:26)
[2019-08-22] MEDS: AZITHROMYCIN 250 MG TAB PO SCH (07:19)
[2019-08-22] MEDS: MAGNESIUM OXIDE 400 MG TAB PO SCH ×3 (07:20→19:24)
[2019-08-22] MEDS: FUROSEMIDE 20 MG TABLET PO SCH (07:22)
[2019-08-22] MEDS: APIXABAN 2.5 MG TABLET PO SCH ×3 (07:23→19:26)
[2019-08-22] MEDS ORDERED: HOME MED 1 EA UNK PO SCH (22:00)
--- NOTE | 2019-08-23 02:07 | FAST ---
SHIFT START DATE/TIME: 08/22/2019 19:00 (WOODWORKING SHOP HAND) SHIFT END DATE/TIME: 08/23/2019 07:00 (WOODWORKING SHOP HAND) NAME WALTER TIWARI DATE OF : 1965 DATE OF ADMISSION: 08/21/2019 06:12 (WOODWORKING SHOP HAND) PHONE: AGE: 54 N# [id number] GENDER: Female ENCOUNTER PHYSICIAN: Dr. Jared Sands M.D. ADMISSION DIAGNOSIS: - Other Disabling Impairments 13 - Other Disabling Impairments (13) systemic lupus erythmatosus. EATING: Not assessed/no information CODE: - ORAL HYGIENE: ORAL HYGIENE - STEP 1: Does the patient complete the activity by him/herself with no assistance (physical, verbal/nonverbal cueing, setup/clean-up)? No. ORAL HYGIENE - STEP 2: Does the patient need only setup/clean-up assistance from one helper? Yes. 1. [id number] ADMISSION PERFORMANCE: Setup or clean-up assistance CODE: 05 TOILETING HYGIENE: TOILETING HYGIENE - STEP 1: Does the patient complete the activity by him/herself with no assistance (physical, verbal/nonverbal cueing, setup/clean-up)? No. TOILETING HYGIENE - STEP 2: Does the patient need only setup/clean-up assistance from one helper? Yes. 1. [id number] ADMISSION PERFORMANCE: Setup or clean-up assistance CODE: 05 BATHING: Not assessed/no information CODE: - DRESSING - UPPER BODY: Not assessed/no information CODE: - DRESSING - LOWER BODY: Not assessed/no information CODE: - PUTTING ON/TAKING OFF FOOTWEAR: Not assessed/no information CODE: - TRANSFERS: CAR: Not assessed/no information CODE: - WALK 10 FEET: Not assessed/no information CODE: - 1 STEP (CURB): Not assessed/no information CODE: - PICKING UP OBJECT: Not assessed/no information CODE: - DOES THE PATIENT USE A WHEELCHAIR/SCOOTER? CODE: EXPR WHEEL 50 FEET WITH TWO TURNS: Not assessed/no information CODE: - INDICATE THE TYPE OF WHEELCHAIR/SCOOTER USED: CODE: EXPR WHEEL 150 FEET: Not assessed/no information CODE: - INDICATE THE TYPE OF WHEELCHAIR/SCOOTER USED: CODE: EXPR BLADDER AND BOWEL: H350. BLADDER CONTINENCE (3-DAY ASSESSMENT PERIOD): Always continent (no documented incontinence) CODE: 0 H400. BOWEL CONTINENCE (3-DAY ASSESSMENT PERIOD): Always continent CODE: 0
[2019-08-23] MEDS: LOSARTAN POTASSIUM 50 MG TABLET PO SCH ×2 (08:00→19:42)
[2019-08-23] MEDS: APIXABAN 2.5 MG TABLET PO SCH ×2 (08:00→19:32)
[2019-08-23] MEDS: POLYETHYL GLY 3350 17 GM/DOSE PO SCH ×2 (08:00→19:39)
[2019-08-23] MEDS: CEFDINIR 300 MG CAP PO SCH ×2 (08:00→19:32)
[2019-08-23] MEDS: predniSONE 20 MG TAB PO SCH (08:00)
[2019-08-23] MEDS: AZITHROMYCIN 250 MG TAB PO SCH (08:00)
[2019-08-23] MEDS: FUROSEMIDE 20 MG TABLET PO SCH (09:17)
[2019-08-23] MEDS: MAGNESIUM OXIDE 400 MG TAB PO SCH ×2 (09:18→19:32)
[2019-08-23] MEDS: MYCOPHENOLATE 200 MG/ML PO SCH ×2 (09:23→19:32)
--- NOTE | 2019-08-23 15:32 | R.PN ---
ENCOUNTER DATE AND TIME: 08/23/2019 14:13 (MACHINE SANDER) NAME WALTER TIWARI DATE OF : 1965 DATE OF ADMISSION: 08/21/2019 06:12 (MACHINE SANDER) systemic lupus erythmatosusCHIEF COMPLAINT: Debility secondary to CHF exacerbation. SUBJECTIVE: Pt denied any depression. Pt denied any Shortness of Breath. Ambulated 800' with standby assistance without a rolling walker. Up and down 15 stairs with contact g uard assistance. Blood work stable. Hgb 11.8, WBC 8.2, prealbumin 19.0. VITAL SIGNS Temperature: 97.5 F SBP/DBP: 151/79 Pulse: 76 Resp: 14 MEDICATION ALLERGIES: No Known Drug Allergies (NKDA) ENVIRONMENTAL ALLERGIES: - Substance Allergies None Known - Other Allergies None Known NURSING: - Shower allowing shower ACTIVITIES OOB only with supervision THERAPIES: - Dietary and Nutrition Adequate Nutrition. Nutritional Education. Nutritional Supplements. PHYSICAL EXAM - Gen Alert and awake Lying in bed No apparent distress Oriented to: person, time, and place - Skin No breakdown No abnormalities - Eyes No abnormalities - ENMT No abnormalities - Neck No abnormalities - CVS RRR - Chest Upper airway congestion. - Resp Bilateral congestion. - Abd Soft - GI Soft Deferred - No abnormalities - Ext Moderate edema in both lower extremities. - MSK 4/5 weakness in both lower extremities. - Neuro 4/5 strength bilaterally lower extremities. - Psych No abnormalities ASSESSMENT: Pt. is a 54 yo Right-handed white female.On 08/11/2019 she was admitted to [facility] with diagnosis systemic lupus erythmatosus.Her impairment category is Other Disabling Impairments 13 - Other Disabling Impairments (13).Pre-morbidly, Pt. was independent/mod-I in Self-Care, Ambulation , and Sphincter Control; and she had good Endurance and Safety Awareness.Currently, she has deficits of Locomotion, Self-Care, Endurance, Transfers Control, Ambulation, Safety Awareness and Self-Care, a nd Functional mobility.Pt. is now referred to [facility] for acute in-patient rehabilitation in order to maximize patient's functional independence in activities of daily living, strength, ROM, and mobility.- Rehab Goal Patient has realistic goal of being discharged at assistance level 6-Carlos Manuel to reside at Home with Fam justina/Relatives. MDM/PLAN: - Physical Therapy Gait dysfunction - to improve, our physical therapists will perform initial evaluation of pt's statu s upon admission and devise an individualized program for Gait Training, and Wheel Chair mobility Inability to transfer - to improve, our physical therapists will perform initial evaluation of pt's status upon admission and devise an individualized program for Bed mobility Need for home safety evaluation - to improve, our physical therapists will perform initial evaluatio n of pt's status upon admission and devise an individualized program for Home Evaluation Need in caregiver upon discharge - to improve, our physical therapists will perform initial evaluati on of pt's status upon admission and devise an individualized program for Caregiver Training Edema - to improve, our physical therapists will perform initial evaluation of pt's status upon admis iris and devise an individualized program for Elevation Training, and Lymphedema Therapy New precaution - to improve, our physical therapists will perform initial evaluation of pt's status upon admission and devise an individualized program for Patient precaution education Poor endurance - to improve, our physical therapists will perform initial evaluation of pt's status upon admission and devise an individualized program for Endurance Training Weakness - to improve, our physical therapists will perform initial evaluation of pt's status upon a dmission and devise an individualized program for Aquatic Therapy, Neuromuscular Reeducation, and Str engthening Achieving independence - to improve, our physical therapists will perform initial evaluation of pt's status upon admission and devise an individualized program for Community Reintegration Activities - Occupational Therapy ADL deficits - to improve, our occupation therapists will perform initial evaluation of pt's status upon admission and devise an individualized program for Bathing, Bed mobility, Community Reintegratio n, Cooking, Dressing, Eating, Fine Motor Skills, Grooming, Homemaking, Kitchen Mobility, Laundry, Pat ient Education, Safety Awareness, Splinting - Positioning, Transfers(Toilet, Tub, Shower), and Wheel Chair Management Need for infant caregiver - to improve, our occupation therapists will perform initial evaluation of pt's status upon admission and devise an individualized program for Caregiver Training Weakness - to improve, our occupation therapists will perform initial evaluation of pt's status upon admission and devise an individualized program for Aquatic Therapy, Balance, Endurance, UE ROM, and UE strengthening - Other See attached MAR (Medication Administration Record) - Diet Type Continue Regular - Diet - Liquid Texture Continue Regular - Tube Feed Continue N/A - Diet - Solid Texture Continue Regular - Shower allowing shower FUNCTIONAL STATUS: UPDATED AT WEEKLY TEAM CONFERENCE - Bladder Same accident frequency: 7-Ind - No accidents in the past 7 days - Bowel Same accident frequency: 7-Ind - No accidents in the past 7 days - Walking Same score based on distance walked: 2(50-149ft) - Wheelchair Same score based on distance traveled: 2(50-149ft) FUNCTIONAL STATUS: - Self-Care A. Eating Ind B. Grooming Ind C. Bathing modA D. Dressing - Upper Carlos Manuel E. Dressing - Lower sup F. Toileting sup - Sphincter Control G. Bladder control sup H. Bowel control sup - Transfers Control I. Bed/Chair/Wheelchair sup J. Toilet sup K. Tub/Shower modA - Locomotion L. Walk/Wheelchair (W) Carlos Manuel M. Stairs sup - Communication N. Comprehension (B) Ind O. Expression (B) Ind - Social Cognition P. Social Interaction Ind Q. Problem Solving Ind R. Memory Ind - Endurance Good - Balance Good - Safety Awareness Good QI SCORES: - Self-Care A. Eating 05-Setup or clean-up assistance B. Oral hygiene 05-Setup or clean-up assistance C. Toileting hygiene 04-Supervision or touching assistance E. Shower/bathe self 88-Not attempted due to medical condition or safety concerns F. Upper body dressing 05-Setup or clean-up assistance G. Lower body dressing 04-Supervision or touching assistance H. Putting on/taking off footwear 04-Supervision or touching assistance - Mobility A. Roll left and right 04-Supervision or touching assistance B. Sit to lying 05-Setup or clean-up assistance C. Lying to sitting on side of bed 04-Supervision or touching assistance D. Sit to stand 04-Supervision or touching assistance E. Chair/dih-ev-bmkoo transfer 05-Setup or clean-up assistance F. Toilet transfer 04-Supervision or touching assistance G. Car transfer 88-Not attempted due to medical condition or safety concerns I. Walk 10 feet 04-Supervision or touching assistance J. Walk 50 feet with two turns 88-Not attempted due to medical condition or safety concerns K. Walk 150 feet 88-Not attempted due to medical condition or safety concerns L. Walking 10 feet on uneven surfaces 88-Not attempted due to medical condition or safety concerns M. 1 step (curb) 88-Not attempted due to medical condition or safety concerns N. 4 steps 88-Not attempted due to medical condition or safety concerns O. 12 steps 88-Not attempted due to medical condition or safety concerns P. Picking up object 88-Not attempted due to medical condition or safety concerns R. Wheel 50 feet with two turns 88-Not attempted due to medical condition or safety concerns S. Wheel 150 feet 88-Not attempted due to medical condition or safety concerns - Bladder and Bowel Bladder continence 0-Always continent Bowel continence 0-Always continent - Endurance Poor - Balance Fair - Safety Awareness Fair [facility] DEFICITS: Self-Care, Mobility, Endurance, Balance, and Safety Awareness SIGNATURE PANEL: (MACHINE SANDER)
--- NOTE | 2019-08-23 15:32 | FAST ---
ENCOUNTER DATE AND TIME: 08/23/2019 08:00 (FORESTRY HUNTER) NAME WALTER TIWARI DATE OF : 1965 DATE OF ADMISSION: 08/21/2019 06:12 (FORESTRY HUNTER) PHONE: AGE: 54 N# [id number] GENDER: Female ENCOUNTER PHYSICIAN: Dr. Jared Sands M.D. ADMISSION DIAGNOSIS: - Other Disabling Impairments 13 - Other Disabling Impairments (13) systemic lupus erythmatosus. EATING: EATING - STEP 1: Does the patient complete the activity by him/herself with no assistance (physical, verbal/nonverbal cueing, setup/clean-up)? Yes. 1. [id number] ADMISSION PERFORMANCE: Independent CODE: 06 ORAL HYGIENE: ORAL HYGIENE - STEP 1: Does the patient complete the activity by him/herself with no assistance (physical, verbal/nonverbal cueing, setup/clean-up)? Yes. 1. [id number] ADMISSION PERFORMANCE: Independent CODE: 06 TOILETING HYGIENE: Not assessed/no information CODE: - BATHING: SHOWER/BATHE SELF - STEP 1: Does the patient complete the activity by him/herself with no assistance (physical, verbal/nonverbal cueing, setup/clean-up)? No. SHOWER/BATHE SELF - STEP 2: Does the patient need only setup/clean-up assistance from one helper? No. SHOWER/BATHE SELF - STEP 3: Does the patient need only verbal/nonverbal cueing or touching/steadying/contact guard assistance fro m one helper? Yes. 1. [id number] ADMISSION PERFORMANCE: Supervision or touching assistance CODE: 04 DRESSING - UPPER BODY: DRESSING - UPPER BODY - STEP 1: Does the patient complete the activity by him/herself with no assistance (physical, verbal/nonverbal cueing, setup/clean-up)? No. DRESSING - UPPER BODY - STEP 2: Does the patient need only setup/clean-up assistance from one helper? No. DRESSING - UPPER BODY - STEP 3: Does the patient need only verbal/nonverbal cueing or touching/steadying/contact guard assistance fro m one helper? Yes. 1. [id number] ADMISSION PERFORMANCE: Supervision or touching assistance CODE: 04 DRESSING - LOWER BODY: DRESSING - LOWER BODY - STEP 1: Does the patient complete the activity by him/herself with no assistance (physical, verbal/nonverbal cueing, setup/clean-up)? No. DRESSING - LOWER BODY - STEP 2: Does the patient need only setup/clean-up assistance from one helper? No. DRESSING - LOWER BODY - STEP 3: Does the patient need only verbal/nonverbal cueing or touching/steadying/contact guard assistance fro m one helper? Yes. 1. [id number] ADMISSION PERFORMANCE: Supervision or touching assistance CODE: 04 PUTTING ON/TAKING OFF FOOTWEAR: FOOTWEAR - STEP 1: Does the patient complete the activity by him/herself with no assistance (physical, verbal/nonverbal cueing, setup/clean-up)? No. FOOTWEAR - STEP 2: Does the patient need only setup/clean-up assistance from one helper? No. FOOTWEAR - STEP 3: Does the patient need only verbal/nonverbal cueing or touching/steadying/contact guard assistance fro m one helper? No. FOOTWEAR - STEP 4: Does the patient need physical assistance - for example lifting or trunk support from one helper - wi th the helper providing less than half of the effort? No. FOOTWEAR - STEP 5: Does the patient need physical assistance - for example lifting or trunk support from one helper - wi th the helper providing more than half of the effort? No. FOOTWEAR - STEP 6: Does the helper provide all of the effort? OR Is the assistance of two or more helpers required to co mplete the activity? Yes. 1. [id number] ADMISSION PERFORMANCE: Dependent CODE: 01 DOES THE PATIENT USE A WHEELCHAIR/SCOOTER? CODE: EXPR INDICATE THE TYPE OF WHEELCHAIR/SCOOTER USED: CODE: EXPR INDICATE THE TYPE OF WHEELCHAIR/SCOOTER USED: CODE: EXPR BLADDER AND BOWEL: CODE: EXPR CODE: EXPR SIGNATURE PANEL: The following modified sections: 1. [id number] Admission Performance, 1. [id number] Admission Performance, 1. [id number] Admission Performance, 1. [id number] Admission Performance, 1. [id number] Admission Performance, 1. [id number] Admission Performance were [electronically] signed by Kiki Milligan OT on FriAug 23 2 019 15:31:49 GMT-0600 (Central Standard Time)
--- NOTE | 2019-08-23 17:52 | FAST ---
SHIFT START DATE/TIME: 08/23/2019 07:00 (OPTICAL GLASS SILVERER) SHIFT END DATE/TIME: 08/23/2019 19:00 (OPTICAL GLASS SILVERER) NAME WALTER TIWARI DATE OF : 1965 DATE OF ADMISSION: 08/21/2019 06:12 (OPTICAL GLASS SILVERER) PHONE: AGE: 54 N# [id number] GENDER: Female ENCOUNTER PHYSICIAN: Dr. Jared Sands M.D. ADMISSION DIAGNOSIS: - Other Disabling Impairments 13 - Other Disabling Impairments (13) systemic lupus erythmatosus. EATING: EATING - STEP 1: Does the patient complete the activity by him/herself with no assistance (physical, verbal/nonverbal cueing, setup/clean-up)? No. EATING - STEP 2: Does the patient need only setup/clean-up assistance from one helper? Yes. 1. [id number] ADMISSION PERFORMANCE: Setup or clean-up assistance CODE: 05 ORAL HYGIENE: ORAL HYGIENE - STEP 1: Does the patient complete the activity by him/herself with no assistance (physical, verbal/nonverbal cueing, setup/clean-up)? No. ORAL HYGIENE - STEP 2: Does the patient need only setup/clean-up assistance from one helper? No. ORAL HYGIENE - STEP 3: Does the patient need only verbal/nonverbal cueing or touching/steadying/contact guard assistance fro m one helper? Yes. 1. [id number] ADMISSION PERFORMANCE: Supervision or touching assistance CODE: 04 TOILETING HYGIENE: TOILETING HYGIENE - STEP 1: Does the patient complete the activity by him/herself with no assistance (physical, verbal/nonverbal cueing, setup/clean-up)? No. TOILETING HYGIENE - STEP 2: Does the patient need only setup/clean-up assistance from one helper? No. TOILETING HYGIENE - STEP 3: Does the patient need only verbal/nonverbal cueing or touching/steadying/contact guard assistance fro m one helper? Yes. 1. [id number] ADMISSION PERFORMANCE: Supervision or touching assistance CODE: 04 BATHING: Not assessed/no information CODE: - DRESSING - UPPER BODY: Not assessed/no information CODE: - DRESSING - LOWER BODY: Not assessed/no information CODE: - PUTTING ON/TAKING OFF FOOTWEAR: Not assessed/no information CODE: - ROLL LEFT AND RIGHT: ROLL LEFT AND RIGHT - STEP 1: Does the patient complete the activity by him/herself with no assistance (physical, verbal/nonverbal cueing, setup/clean-up)? No. ROLL LEFT AND RIGHT - STEP 2: Does the patient need only setup/clean-up assistance from one helper? Yes. 1. [id number] ADMISSION PERFORMANCE: Setup or clean-up assistance CODE: 05 SIT TO LYING: SIT TO LYING - STEP 1: Does the patient complete the activity by him/herself with no assistance (physical, verbal/nonverbal cueing, setup/clean-up)? No. SIT TO LYING - STEP 2: Does the patient need only setup/clean-up assistance from one helper? Yes. 1. [id number] ADMISSION PERFORMANCE: Setup or clean-up assistance CODE: 05 LYING TO SITTING: LYING TO SITTING ON SIDE OF BED - STEP 1: Does the patient complete the activity by him/herself with no assistance (physical, verbal/nonverbal cueing, setup/clean-up)? No. LYING TO SITTING ON SIDE OF BED - STEP 2: Does the patient need only setup/clean-up assistance from one helper? Yes. 1. [id number] ADMISSION PERFORMANCE: Setup or clean-up assistance CODE: 05 SIT TO STAND: SIT TO STAND - STEP 1: Does the patient complete the activity by him/herself with no assistance (physical, verbal/nonverbal cueing, setup/clean-up)? No. SIT TO STAND - STEP 2: Does the patient need only setup/clean-up assistance from one helper? Yes. 1. [id number] ADMISSION PERFORMANCE: Setup or clean-up assistance CODE: 05 TRANSFERS: BED, CHAIR: CHAIR/URE-[id number] TRANSFER - STEP 1: Does the patient complete the activity by him/herself with no assistance (physical, verbal/nonverbal cueing, setup/clean-up)? No. CHAIR/[id number] TRANSFER - STEP 2: Does the patient need only setup/clean-up assistance from one helper? Yes. 1. [id number] ADMISSION PERFORMANCE: Setup or clean-up assistance CODE: 05 TRANSFER TOILET: TOILET TRANSFER - STEP 1: Does the patient complete the activity by him/herself with no assistance (physical, verbal/nonverbal cueing, setup/clean-up)? No. TOILET TRANSFER - STEP 2: Does the patient need only setup/clean-up assistance from one helper? Yes. 1. [id number] ADMISSION PERFORMANCE: Setup or clean-up assistance CODE: 05 TRANSFERS: CAR: Not assessed/no information CODE: - WALK 10 FEET: Not assessed/no information CODE: - 1 STEP (CURB): Not assessed/no information CODE: - PICKING UP OBJECT: Not assessed/no information CODE: - DOES THE PATIENT USE A WHEELCHAIR/SCOOTER? CODE: EXPR WHEEL 50 FEET WITH TWO TURNS: Not assessed/no information CODE: - INDICATE THE TYPE OF WHEELCHAIR/SCOOTER USED: CODE: EXPR WHEEL 150 FEET: Not assessed/no information CODE: - INDICATE THE TYPE OF WHEELCHAIR/SCOOTER USED: CODE: EXPR BLADDER AND BOWEL: H350. BLADDER CONTINENCE (3-DAY ASSESSMENT PERIOD): Always continent (no documented incontinence) CODE: 0 H400. BOWEL CONTINENCE (3-DAY ASSESSMENT PERIOD): Always continent CODE: 0 SIGNATURE PANEL: The following modified sections: 1. [id number] Admission Performance, 1. [id number] Admission Performance, 1. EF4506M Admission Performance, 1. MG3862F Admission Performance, 1. GU0982B Admission Performance, 1. [id number] Admission Performance, 1. [id number] Admission Performance, 1. [id number] Admission Performance , 1. [id number] Admission Performance, 1. [id number] Admission Performance, Code, H350. Bladder Continence (3-day assessment period), H400. Bowel Continence (3-day assessment period) were [electronically] sig shana by Pb Krishna on FriAug 23 2019 17:51:47 GMT-0600 (Central Standard Time)
[2019-08-23] MEDS: ENSURE ENLIVE 237 ML CAN PO SCH (19:32)
[2019-08-24] MEDS: ENSURE ENLIVE 237 ML CAN PO SCH ×2 (08:00→20:00)
[2019-08-24] MEDS: CEFDINIR 300 MG CAP PO SCH ×2 (08:00→20:00)
[2019-08-24] MEDS: MAGNESIUM OXIDE 400 MG TAB PO SCH ×2 (08:00→20:00)
[2019-08-24] MEDS: AZITHROMYCIN 250 MG TAB PO SCH (08:00)
[2019-08-24] MEDS: APIXABAN 2.5 MG TABLET PO SCH ×2 (08:00→20:00)
[2019-08-24] MEDS: predniSONE 20 MG TAB PO SCH (08:00)
[2019-08-24] MEDS: POLYETHYL GLY 3350 17 GM/DOSE PO SCH (08:13)
[2019-08-24] MEDS: FUROSEMIDE 20 MG TABLET PO SCH (08:14)
[2019-08-24] MEDS: LOSARTAN 25 MG PO SCH ×2 (08:15→20:05)
[2019-08-24] MEDS: MYCOPHENOLATE 200 MG/ML PO SCH ×2 (08:15→20:00)
--- NOTE | 2019-08-24 10:43 | FAST ---
SHIFT START DATE/TIME: 08/24/2019 07:00 (TRACKMAN) SHIFT END DATE/TIME: 08/24/2019 19:00 (TRACKMAN) NAME WALTER TIWARI DATE OF : 1965 DATE OF ADMISSION: 08/21/2019 06:12 (TRACKMAN) PHONE: AGE: 54 N# [id number] GENDER: Female ENCOUNTER PHYSICIAN: Dr. Jared Sands M.D. ADMISSION DIAGNOSIS: - Other Disabling Impairments 13 - Other Disabling Impairments (13) systemic lupus erythmatosus. EATING: EATING - STEP 1: Does the patient complete the activity by him/herself with no assistance (physical, verbal/nonverbal cueing, setup/clean-up)? No. EATING - STEP 2: Does the patient need only setup/clean-up assistance from one helper? No. EATING - STEP 3: Does the patient need only verbal/nonverbal cueing or touching/steadying/contact guard assistance fro m one helper? Yes. 1. [id number] ADMISSION PERFORMANCE: Supervision or touching assistance CODE: 04 ORAL HYGIENE: ORAL HYGIENE - STEP 1: Does the patient complete the activity by him/herself with no assistance (physical, verbal/nonverbal cueing, setup/clean-up)? No. ORAL HYGIENE - STEP 2: Does the patient need only setup/clean-up assistance from one helper? Yes. 1. [id number] ADMISSION PERFORMANCE: Setup or clean-up assistance CODE: 05 TOILETING HYGIENE: TOILETING HYGIENE - STEP 1: Does the patient complete the activity by him/herself with no assistance (physical, verbal/nonverbal cueing, setup/clean-up)? No. TOILETING HYGIENE - STEP 2: Does the patient need only setup/clean-up assistance from one helper? No. TOILETING HYGIENE - STEP 3: Does the patient need only verbal/nonverbal cueing or touching/steadying/contact guard assistance fro m one helper? Yes. 1. [id number] ADMISSION PERFORMANCE: Supervision or touching assistance CODE: 04 BATHING: Not assessed/no information CODE: - DRESSING - UPPER BODY: Not assessed/no information CODE: - DRESSING - LOWER BODY: Not assessed/no information CODE: - PUTTING ON/TAKING OFF FOOTWEAR: Not assessed/no information CODE: - ROLL LEFT AND RIGHT: Not assessed/no information CODE: - SIT TO LYING: Not assessed/no information CODE: - LYING TO SITTING: Not assessed/no information CODE: - SIT TO STAND: SIT TO STAND - STEP 1: Does the patient complete the activity by him/herself with no assistance (physical, verbal/nonverbal cueing, setup/clean-up)? No. SIT TO STAND - STEP 2: Does the patient need only setup/clean-up assistance from one helper? No. SIT TO STAND - STEP 3: Does the patient need only verbal/nonverbal cueing or touching/steadying/contact guard assistance fro m one helper? Yes. 1. [id number] ADMISSION PERFORMANCE: Supervision or touching assistance CODE: 04 TRANSFERS: BED, CHAIR: Not assessed/no information CODE: - TRANSFER TOILET: TOILET TRANSFER - STEP 1: Does the patient complete the activity by him/herself with no assistance (physical, verbal/nonverbal cueing, setup/clean-up)? No. TOILET TRANSFER - STEP 2: Does the patient need only setup/clean-up assistance from one helper? No. TOILET TRANSFER - STEP 3: Does the patient need only verbal/nonverbal cueing or touching/steadying/contact guard assistance fro m one helper? Yes. 1. [id number] ADMISSION PERFORMANCE: Supervision or touching assistance CODE: 04 TRANSFERS: CAR: Not assessed/no information CODE: - WALK 10 FEET: Not assessed/no information CODE: - 1 STEP (CURB): Not assessed/no information CODE: - PICKING UP OBJECT: Not assessed/no information CODE: - DOES THE PATIENT USE A WHEELCHAIR/SCOOTER? CODE: EXPR WHEEL 50 FEET WITH TWO TURNS: Not assessed/no information CODE: - INDICATE THE TYPE OF WHEELCHAIR/SCOOTER USED: CODE: EXPR WHEEL 150 FEET: Not assessed/no information CODE: - INDICATE THE TYPE OF WHEELCHAIR/SCOOTER USED: CODE: EXPR BLADDER AND BOWEL: H350. BLADDER CONTINENCE (3-DAY ASSESSMENT PERIOD): Always continent (no documented incontinence) CODE: 0 H400. BOWEL CONTINENCE (3-DAY ASSESSMENT PERIOD): Always continent CODE: 0 SIGNATURE PANEL: The following modified sections: 1. [id number] Admission Performance, 1. [id number] Admission Performance, 1. [id number] Admission Performance, 1. [id number] Admission Performance, 1. [id number] Admission Performance, 1. HN4069W Admission Performance, Code, H350. Bladder Continence (3-day assessment period), H400. All wel Continence (3-day assessment period) were [electronically] signed by Pb Krishna on FriAug 24 201 9 10:42:51 GMT-0600 (Central Standard Time)
--- NOTE | 2019-08-24 14:18 | FAST ---
ENCOUNTER DATE AND TIME: 08/24/2019 08:00 (MANAGER TITLE) NAME WALTER TIWARI DATE OF : 1965 DATE OF ADMISSION: 08/21/2019 06:12 (MANAGER TITLE) PHONE: AGE: 54 N# [id number] GENDER: Female ENCOUNTER PHYSICIAN: Dr. Jared Sands M.D. ADMISSION DIAGNOSIS: - Other Disabling Impairments 13 - Other Disabling Impairments (13) systemic lupus erythmatosus. ROLL LEFT AND RIGHT: ROLL LEFT AND RIGHT - STEP 1: Does the patient complete the activity by him/herself with no assistance (physical, verbal/nonverbal cueing, setup/clean-up)? No. ROLL LEFT AND RIGHT - STEP 2: Does the patient need only setup/clean-up assistance from one helper? No. ROLL LEFT AND RIGHT - STEP 3: Does the patient need only verbal/nonverbal cueing or touching/steadying/contact guard assistance fro m one helper? Yes. 1. [id number] ADMISSION PERFORMANCE: Supervision or touching assistance CODE: 04 SIT TO LYING: SIT TO LYING - STEP 1: Does the patient complete the activity by him/herself with no assistance (physical, verbal/nonverbal cueing, setup/clean-up)? No. SIT TO LYING - STEP 2: Does the patient need only setup/clean-up assistance from one helper? No. SIT TO LYING - STEP 3: Does the patient need only verbal/nonverbal cueing or touching/steadying/contact guard assistance fro m one helper? Yes. 1. [id number] ADMISSION PERFORMANCE: Supervision or touching assistance CODE: 04 LYING TO SITTING: LYING TO SITTING ON SIDE OF BED - STEP 1: Does the patient complete the activity by him/herself with no assistance (physical, verbal/nonverbal cueing, setup/clean-up)? No. LYING TO SITTING ON SIDE OF BED - STEP 2: Does the patient need only setup/clean-up assistance from one helper? No. LYING TO SITTING ON SIDE OF BED - STEP 3: Does the patient need only verbal/nonverbal cueing or touching/steadying/contact guard assistance fro m one helper? Yes. 1. [id number] ADMISSION PERFORMANCE: Supervision or touching assistance CODE: 04 SIT TO STAND: SIT TO STAND - STEP 1: Does the patient complete the activity by him/herself with no assistance (physical, verbal/nonverbal cueing, setup/clean-up)? No. SIT TO STAND - STEP 2: Does the patient need only setup/clean-up assistance from one helper? No. SIT TO STAND - STEP 3: Does the patient need only verbal/nonverbal cueing or touching/steadying/contact guard assistance fro m one helper? No. SIT TO STAND - STEP 4: Does the patient need physical assistance - for example lifting or trunk support from one helper - wi th the helper providing less than half of the effort? Yes. 1. [id number] ADMISSION PERFORMANCE: Partial/moderate assistance CODE: 03 TRANSFERS: BED, CHAIR: CHAIR/[id number] TRANSFER - STEP 1: Does the patient complete the activity by him/herself with no assistance (physical, verbal/nonverbal cueing, setup/clean-up)? No. CHAIR/[id number] TRANSFER - STEP 2: Does the patient need only setup/clean-up assistance from one helper? No. CHAIR/[id number] TRANSFER - STEP 3: Does the patient need only verbal/nonverbal cueing or touching/steadying/contact guard assistance fro m one helper? No. CHAIR/[id number] TRANSFER - STEP 4: Does the patient need physical assistance - for example lifting or trunk support from one helper - wi th the helper providing less than half of the effort? Yes. 1. [id number] ADMISSION PERFORMANCE: Partial/moderate assistance CODE: 03 TRANSFER TOILET: TOILET TRANSFER - STEP 1: Does the patient complete the activity by him/herself with no assistance (physical, verbal/nonverbal cueing, setup/clean-up)? No. TOILET TRANSFER - STEP 2: Does the patient need only setup/clean-up assistance from one helper? No. TOILET TRANSFER - STEP 3: Does the patient need only verbal/nonverbal cueing or touching/steadying/contact guard assistance fro m one helper? No. TOILET TRANSFER - STEP 4: Does the patient need physical assistance - for example lifting or trunk support from one helper - wi th the helper providing less than half of the effort? Yes. 1. [id number] ADMISSION PERFORMANCE: Partial/moderate assistance CODE: 03 TRANSFERS: CAR: Not applicable - Not attempted and the patient did not perform this activity prior to the current ill ness, exacerbation, or injury. CODE: WALK 10 FEET: WALK 10 FEET - STEP 1: Does the patient complete the activity by him/herself with no assistance (physical, verbal/nonverbal cueing, setup/clean-up)? No. WALK 10 FEET - STEP 2: Does the patient need only setup/clean-up assistance from one helper? No. WALK 10 FEET - STEP 3: Does the patient need only verbal/nonverbal cueing or touching/steadying/contact guard assistance fro m one helper? Yes. 1. [id number] ADMISSION PERFORMANCE: Supervision or touching assistance CODE: WALK 50 FEET: WALK 50 FEET - STEP 1: Does the patient complete the activity by him/herself with no assistance (physical, verbal/nonverbal cueing, setup/clean-up)? No. WALK 50 FEET - STEP 2: Does the patient need only setup/clean-up assistance from one helper? No. WALK 50 FEET - STEP 3: Does the patient need only verbal/nonverbal cueing or touching/steadying/contact guard assistance fro m one helper? Yes. 1. [id number] ADMISSION PERFORMANCE: Supervision or touching assistance CODE: WALK 150 FEET: WALK 150 FEET - STEP 1: Does the patient complete the activity by him/herself with no assistance (physical, verbal/nonverbal cueing, setup/clean-up)? No. WALK 150 FEET - STEP 2: Does the patient need only setup/clean-up assistance from one helper? No. WALK 150 FEET - STEP 3: Does the patient need only verbal/nonverbal cueing or touching/steadying/contact guard assistance fro m one helper? No. WALK 150 FEET - STEP 4: Does the patient need physical assistance - for example lifting or trunk support from one helper - wi th the helper providing less than half of the effort? Yes. 1. [id number] ADMISSION PERFORMANCE: Partial/moderate assistance CODE: 03 WALK 10 FEET UNEVEN: WALKING 10 FEET ON UNEVEN SURFACES - STEP 1: Does the patient complete the activity by him/herself with no assistance (physical, verbal/nonverbal cueing, setup/clean-up)? No. WALKING 10 FEET ON UNEVEN SURFACES - STEP 2: Does the patient need only setup/clean-up assistance from one helper? No. WALKING 10 FEET ON UNEVEN SURFACES - STEP 3: Does the patient need only verbal/nonverbal cueing or touching/steadying/contact guard assistance fro m one helper? Yes. 1. [id number] ADMISSION PERFORMANCE: Supervision or touching assistance CODE: 04 1 STEP (CURB): Not attempted due to medical condition or safety concerns CODE: 88 PICKING UP OBJECT: PICKING UP OBJECT - STEP 1: Does the patient complete the activity by him/herself with no assistance (physical, verbal/nonverbal cueing, setup/clean-up)? No. PICKING UP OBJECT - STEP 2: Does the patient need only setup/clean-up assistance from one helper? No. PICKING UP OBJECT - STEP 3: Does the patient need only verbal/nonverbal cueing or touching/steadying/contact guard assistance fro m one helper? Yes. 1. [id number] ADMISSION PERFORMANCE: Supervision or touching assistance CODE: 04 DOES THE PATIENT USE A WHEELCHAIR/SCOOTER? Q1. DOES THE PATIENT USE A WHEELCHAIR/SCOOTER?: No CODE: 0 INDICATE THE TYPE OF WHEELCHAIR/SCOOTER USED: CODE: EXPR INDICATE THE TYPE OF WHEELCHAIR/SCOOTER USED: CODE: EXPR BLADDER AND BOWEL: CODE: EXPR CODE: EXPR SIGNATURE PANEL: The following modified sections: 1. [id number] Admission Performance, 1. [id number] Admission Performance, 1. SS7635B Admission Performance, 1. RN8228L Admission Performance, 1. [id number] Admission Performance, 1. [id number] Admission Performance, 1. CU3031P Admission Performance, 1. DH7029W Admission Performance , 1. TM2609F Admission Performance, 1. BV2213B Admission Performance, 1. [id number] Admission Performanc e, 1. LO7344S Admission Performance, Q1. Does the patient use a wheelchair/scooter? were [electronica lly] signed by Stephane Morales PT on FriAug 24 2019 14:16:45 T-0600 (Central Standard Time)
[2019-08-25] MEDS: ENSURE ENLIVE 237 ML CAN PO SCH ×2 (08:00→20:00)
[2019-08-25] MEDS: APIXABAN 2.5 MG TABLET PO SCH ×2 (08:00→20:00)
[2019-08-25] MEDS: MAGNESIUM OXIDE 400 MG TAB PO SCH ×2 (08:00→20:00)
[2019-08-25] MEDS: predniSONE 20 MG TAB PO SCH (08:00)
[2019-08-25] MEDS: AZITHROMYCIN 250 MG TAB PO SCH (08:00)
[2019-08-25] MEDS: CEFDINIR 300 MG CAP PO SCH ×2 (08:00→20:00)
[2019-08-25] MEDS: POLYETHYL GLY 3350 17 GM/DOSE PO SCH (08:37)
[2019-08-25] MEDS: FUROSEMIDE 20 MG TABLET PO SCH (08:38)
[2019-08-25] MEDS: MYCOPHENOLATE 200 MG/ML PO SCH ×2 (08:39→20:00)
[2019-08-25] MEDS: LOSARTAN 25 MG PO SCH ×2 (08:40→20:00)
--- NOTE | 2019-08-25 09:54 | P.RH.PN ---
Estimated Length of Stay: 7 Expected Discharge Date: 08/28/19 Discharge Disposition Plan: Home Family Support: Yes Instructor Painting Goal: Mobility, Transfers, Self Care Vital Signs: Last Vital Signs Temp 97.5 F 08/25/19 07:03 Pulse 81 08/25/19 08:38 Resp 16 08/25/19 07:03 BP 166/79 H 08/25/19 08:38 Pulse Ox 96 08/25/19 07:03 Laboratory: Laboratory Last Values WBC 8.2 K/uL (4.3-10.9) 08/21/19 09:10 RBC 5.07 M/uL (3.86-4.86) H 08/21/19 09:10 Hgb 11.8 g/dL (12.0-15.0) L 08/21/19 09:10 Hct 37.2 % (36.0-45.0) 08/21/19 09:10 MCV 73.4 fL (80-100) L 08/21/19 09:10 MCH 23.2 pg (27.0-35.0) L 08/21/19 09:10 MCHC 31.6 g/dL (32.0-36.0) L 08/21/19 09:10 RDW 17.5 % (12.1-15.2) H 08/21/19 09:10 Plt Count 278 K/uL (152-406) 08/21/19 09:10 MPV 8.8 fL (7.6-11.3) 08/21/19 09:10 Neutrophils % 62.5 % (41.7-73.7) 08/21/19 09:10 Lymphocytes % 23.8 % (15.3-44.8) 08/21/19 09:10 Monocytes % 11.7 % (3.3-12.3) 08/21/19 09:10 Eosinophils % 1.1 % (0-4.4) 08/21/19 09:10 Basophils % 0.9 % (0-1.3) 08/21/19 09:10 Absolute Neutrophils 5.2 K/uL (1.8-8.0) 08/21/19 09:10 Absolute Lymphocytes 2.0 K/uL (0.7-4.9) 08/21/19 09:10 Absolute Monocytes 1.0 K/uL (0.1-1.3) 08/21/19 09:10 Absolute Eosinophils 0.1 K/uL (0-0.5) 08/21/19 09:10 Absolute Basophils 0.1 K/uL (0-0.5) 08/21/19 09:10 Sodium 142 mmol/L (136-145) 08/21/19 09:10 Potassium 3.6 mmol/L (3.5-5.1) 08/21/19 09:10 Chloride 106 mmol/L (98-107) 08/21/19 09:10 Carbon Dioxide 28 mmol/L (21-32) 08/21/19 09:10 BUN 12 mg/dL (7-18) 08/21/19 09:10 Creatinine 0.57 mg/dL (0.55-1.3) 08/21/19 09:10 Estimated GFR > 90 mL/min (=/>90) 08/21/19 09:10 Glucose 56 mg/dL (74-106) L 08/21/19 09:10 Calcium 8.6 mg/dL (8.5-10.1) 08/21/19 09:10 Magnesium 1.9 mg/dL (1.8-2.4) 08/21/19 09:10 Albumin 3.5 g/dL (3.4-5.0) 08/21/19 09:10 Prealbumin 19.0 mg/dL (20-40) L 08/21/19 09:10 Urine Color Yellow 08/21/19 07:50 Urine Appearance Clear 08/21/19 07:50 Urine pH 6.5 (5.0-7.0) 08/21/19 07:50 Ur Specific [place] 1.015 (1.005-1.030) 08/21/19 07:50 Urine Ketones Negative (NEG) 08/21/19 07:50 Urine Blood Negative (NEG) 08/21/19 07:50 Urine Nitrite Negative (NEG) 08/21/19 07:50 Urine Bilirubin Negative (NEG) 08/21/19 07:50 Urine Urobilinogen 0.2 mg/dL (0.2-1.0) 08/21/19 07:50 Ur Leukocyte Esterase Negative (NEG) 08/21/19 07:50 Urine RBC <5 /HPF (NONE SEEN) 08/21/19 07:50 Urine WBC 5-10 /HPF (<5) H 08/21/19 07:50 Ur Squamous Epith Cells 10-20 /HPF (NONE SEEN) H 08/21/19 07:50 Calcium Oxalate Crystal Few (NONE SEEN) 08/21/19 07:50 Urine Bacteria 20-50 /HPF (<20) H 08/21/19 07:50 Urine Culture Reflexed Reflexed 08/21/19 07:50 Urine Glucose Negative (NEG) 08/21/19 07:50 Urine Total Protein Negative (NEG) 08/21/19 07:50 Weight: 114 lb Wound Present: No Closed Surgical Incision Present: No Negative Pressure Wound Therapy Present: No Physician Update: She is doing very well with physical and occupational therapy. She is on lasix with a decreased in lower extremity edema. Walking 1000 ' with supervision. Her transfers are good. Medical Issues: Patient is always continent with bladder and bowel Functional Improvement: pt is demonstrating progress with functional activity. pt does ambulate well; however, she continues to exhibit significant weakness in deep knee bends and positions lower than a 90-90 sitting posture. pt continues to require LE and core strengthening to enhance her functional performance of transfers and safety with functional tasks. Summary: Patient's care plan and intermediate card tender goals have been reviewed and revised as necessary. Please see the Rehabilitation Signature page for all necessary signatures.
[2019-08-25] MEDS ORDERED: PNEUMOCOCCAL VACCINE 0.5 ML IMVAC ONE (14:00)
[2019-08-25] MEDS ORDERED: INFLUENZA VACCINE (for 3y+) 0.5 ML DOSE IMVAC ONE (14:00)
[2019-08-25] MEDS ORDERED: FUROSEMIDE 20 MG TABLET PO ONE (15:00)
--- NOTE | 2019-08-25 15:40 | FAST ---
ENCOUNTER DATE AND TIME: 08/25/2019 08:00 (GYNAECOLOGICAL ONCOLOGIST) NAME WALTER TIWARI DATE OF : 1965 DATE OF ADMISSION: 08/21/2019 06:12 (GYNAECOLOGICAL ONCOLOGIST) PHONE: AGE: 54 N# [id number] GENDER: Female ENCOUNTER PHYSICIAN: Dr. Jared Sands M.D. ADMISSION DIAGNOSIS: - Other Disabling Impairments 13 - Other Disabling Impairments (13) systemic lupus erythmatosus. EATING: EATING - STEP 1: Does the patient complete the activity by him/herself with no assistance (physical, verbal/nonverbal cueing, setup/clean-up)? Yes. 1. [id number] ADMISSION PERFORMANCE: Independent CODE: 06 ORAL HYGIENE: ORAL HYGIENE - STEP 1: Does the patient complete the activity by him/herself with no assistance (physical, verbal/nonverbal cueing, setup/clean-up)? Yes. 1. [id number] ADMISSION PERFORMANCE: Independent CODE: 06 TOILETING HYGIENE: TOILETING HYGIENE - STEP 1: Does the patient complete the activity by him/herself with no assistance (physical, verbal/nonverbal cueing, setup/clean-up)? Yes. 1. [id number] ADMISSION PERFORMANCE: Independent CODE: 06 BATHING: SHOWER/BATHE SELF - STEP 1: Does the patient complete the activity by him/herself with no assistance (physical, verbal/nonverbal cueing, setup/clean-up)? Yes. 1. [id number] ADMISSION PERFORMANCE: Independent CODE: 06 DRESSING - UPPER BODY: DRESSING - UPPER BODY - STEP 1: Does the patient complete the activity by him/herself with no assistance (physical, verbal/nonverbal cueing, setup/clean-up)? Yes. 1. AS3770F ADMISSION PERFORMANCE: Independent CODE: 06 DRESSING - LOWER BODY: DRESSING - LOWER BODY - STEP 1: Does the patient complete the activity by him/herself with no assistance (physical, verbal/nonverbal cueing, setup/clean-up)? Yes. 1. [id number] ADMISSION PERFORMANCE: Independent CODE: 06 PUTTING ON/TAKING OFF FOOTWEAR: FOOTWEAR - STEP 1: Does the patient complete the activity by him/herself with no assistance (physical, verbal/nonverbal cueing, setup/clean-up)? Yes. 1. [id number] ADMISSION PERFORMANCE: Independent CODE: 06 DOES THE PATIENT USE A WHEELCHAIR/SCOOTER? CODE: EXPR INDICATE THE TYPE OF WHEELCHAIR/SCOOTER USED: CODE: EXPR INDICATE THE TYPE OF WHEELCHAIR/SCOOTER USED: CODE: EXPR BLADDER AND BOWEL: CODE: EXPR CODE: EXPR SIGNATURE PANEL: The following modified sections: 1. [id number] Admission Performance, 1. [id number] Admission Performance, 1. LS7520E Admission Performance, 1. MO4858d Admission Performance, 1. ST0433k Admission Performance, 1. GD0345p Admission Performance, 1. YF8530n Admission Performance were [electronically] signed by Elif Milligan OT on FriAug 25 2019 15:39:11 GMT-0600 (Central Standard Time)
--- NOTE | 2019-08-25 16:00 | FAST ---
SHIFT START DATE/TIME: 08/25/2019 07:00 (FELLED SEAM OPERATOR CHAINSTITCH) SHIFT END DATE/TIME: 08/25/2019 19:00 (FELLED SEAM OPERATOR CHAINSTITCH) NAME WALTER TIWARI DATE OF : 1965 DATE OF ADMISSION: 08/21/2019 06:12 (FELLED SEAM OPERATOR CHAINSTITCH) PHONE: AGE: 54 N# [id number] GENDER: Female ENCOUNTER PHYSICIAN: Dr. Jared Sands M.D. ADMISSION DIAGNOSIS: - Other Disabling Impairments 13 - Other Disabling Impairments (13) systemic lupus erythmatosus. EATING: EATING - STEP 1: Does the patient complete the activity by him/herself with no assistance (physical, verbal/nonverbal cueing, setup/clean-up)? Yes. 1. [id number] ADMISSION PERFORMANCE: Independent CODE: 06 ORAL HYGIENE: ORAL HYGIENE - STEP 1: Does the patient complete the activity by him/herself with no assistance (physical, verbal/nonverbal cueing, setup/clean-up)? Yes. 1. [id number] ADMISSION PERFORMANCE: Independent CODE: 06 TOILETING HYGIENE: TOILETING HYGIENE - STEP 1: Does the patient complete the activity by him/herself with no assistance (physical, verbal/nonverbal cueing, setup/clean-up)? Yes. 1. [id number] ADMISSION PERFORMANCE: Independent CODE: 06 BATHING: Not assessed/no information CODE: - DRESSING - UPPER BODY: DRESSING - UPPER BODY - STEP 1: Does the patient complete the activity by him/herself with no assistance (physical, verbal/nonverbal cueing, setup/clean-up)? Yes. 1. [id number] ADMISSION PERFORMANCE: Independent CODE: 06 DRESSING - LOWER BODY: DRESSING - LOWER BODY - STEP 1: Does the patient complete the activity by him/herself with no assistance (physical, verbal/nonverbal cueing, setup/clean-up)? Yes. 1. [id number] ADMISSION PERFORMANCE: Independent CODE: 06 PUTTING ON/TAKING OFF FOOTWEAR: FOOTWEAR - STEP 1: Does the patient complete the activity by him/herself with no assistance (physical, verbal/nonverbal cueing, setup/clean-up)? Yes. 1. [id number] ADMISSION PERFORMANCE: Independent CODE: 06 ROLL LEFT AND RIGHT: ROLL LEFT AND RIGHT - STEP 1: Does the patient complete the activity by him/herself with no assistance (physical, verbal/nonverbal cueing, setup/clean-up)? No. ROLL LEFT AND RIGHT - STEP 2: Does the patient need only setup/clean-up assistance from one helper? No. ROLL LEFT AND RIGHT - STEP 3: Does the patient need only verbal/nonverbal cueing or touching/steadying/contact guard assistance fro m one helper? Yes. 1. [id number] ADMISSION PERFORMANCE: Supervision or touching assistance CODE: 04 SIT TO LYING: SIT TO LYING - STEP 1: Does the patient complete the activity by him/herself with no assistance (physical, verbal/nonverbal cueing, setup/clean-up)? No. SIT TO LYING - STEP 2: Does the patient need only setup/clean-up assistance from one helper? No. SIT TO LYING - STEP 3: Does the patient need only verbal/nonverbal cueing or touching/steadying/contact guard assistance fro m one helper? Yes. 1. [id number] ADMISSION PERFORMANCE: Supervision or touching assistance CODE: 04 LYING TO SITTING: LYING TO SITTING ON SIDE OF BED - STEP 1: Does the patient complete the activity by him/herself with no assistance (physical, verbal/nonverbal cueing, setup/clean-up)? No. LYING TO SITTING ON SIDE OF BED - STEP 2: Does the patient need only setup/clean-up assistance from one helper? No. LYING TO SITTING ON SIDE OF BED - STEP 3: Does the patient need only verbal/nonverbal cueing or touching/steadying/contact guard assistance fro m one helper? No. LYING TO SITTING ON SIDE OF BED - STEP 4: Does the patient need physical assistance - for example lifting or trunk support from one helper - wi th the helper providing less than half of the effort? Yes. 1. [id number] ADMISSION PERFORMANCE: Partial/moderate assistance CODE: 03 SIT TO STAND: SIT TO STAND - STEP 1: Does the patient complete the activity by him/herself with no assistance (physical, verbal/nonverbal cueing, setup/clean-up)? No. SIT TO STAND - STEP 2: Does the patient need only setup/clean-up assistance from one helper? No. SIT TO STAND - STEP 3: Does the patient need only verbal/nonverbal cueing or touching/steadying/contact guard assistance fro m one helper? No. SIT TO STAND - STEP 4: Does the patient need physical assistance - for example lifting or trunk support from one helper - wi th the helper providing less than half of the effort? Yes. 1. [id number] ADMISSION PERFORMANCE: Partial/moderate assistance CODE: 03 TRANSFERS: BED, CHAIR: CHAIR/[id number] TRANSFER - STEP 1: Does the patient complete the activity by him/herself with no assistance (physical, verbal/nonverbal cueing, setup/clean-up)? No. CHAIR/[id number] TRANSFER - STEP 2: Does the patient need only setup/clean-up assistance from one helper? No. CHAIR/[id number] TRANSFER - STEP 3: Does the patient need only verbal/nonverbal cueing or touching/steadying/contact guard assistance fro m one helper? No. CHAIR/[id number] TRANSFER - STEP 4: Does the patient need physical assistance - for example lifting or trunk support from one helper - wi th the helper providing less than half of the effort? Yes. 1. [id number] ADMISSION PERFORMANCE: Partial/moderate assistance CODE: 03 TRANSFER TOILET: TOILET TRANSFER - STEP 1: Does the patient complete the activity by him/herself with no assistance (physical, verbal/nonverbal cueing, setup/clean-up)? No. TOILET TRANSFER - STEP 2: Does the patient need only setup/clean-up assistance from one helper? No. TOILET TRANSFER - STEP 3: Does the patient need only verbal/nonverbal cueing or touching/steadying/contact guard assistance fro m one helper? No. TOILET TRANSFER - STEP 4: Does the patient need physical assistance - for example lifting or trunk support from one helper - wi th the helper providing less than half of the effort? Yes. 1. [id number] ADMISSION PERFORMANCE: Partial/moderate assistance CODE: 03 TRANSFERS: CAR: Not assessed/no information CODE: - WALK 10 FEET: Not assessed/no information CODE: - 1 STEP (CURB): Not assessed/no information CODE: - PICKING UP OBJECT: Not assessed/no information CODE: - DOES THE PATIENT USE A WHEELCHAIR/SCOOTER? Q1. DOES THE PATIENT USE A WHEELCHAIR/SCOOTER?: No CODE: 0 INDICATE THE TYPE OF WHEELCHAIR/SCOOTER USED: CODE: EXPR INDICATE THE TYPE OF WHEELCHAIR/SCOOTER USED: CODE: EXPR BLADDER AND BOWEL: H350. BLADDER CONTINENCE (3-DAY ASSESSMENT PERIOD): Always continent (no documented incontinence) CODE: 0 H400. BOWEL CONTINENCE (3-DAY ASSESSMENT PERIOD): Always continent CODE: 0 SIGNATURE PANEL: The following modified sections: 1. [id number] Admission Performance, 1. MW8104T Admission Performance, 1. TS3495C Admission Performance, 1. AP7891g Admission Performance, 1. QW3509u Admission Performance, 1. ON4903v Admission Performance, 1. GO2487S Admission Performance, 1. AJ9845S Admission Performance , 1. AL4109T Admission Performance, 1. SM8142Q Admission Performance, 1. RK9088O Admission Performanc e, 1. CB1358D Admission Performance, 1. IY6000V Admission Performance, 1. DV0886X Admission Performan ce, 1. HM2117Z Admission Performance, 1. CE8325O Admission Performance, Q1. Does the patient use a wh eelchair/scooter?, Q1. Does the patient use a wheelchair/scooter?, H350. Bladder Continence (3-day as sessment period), H400. Bowel Continence (3-day assessment period) were [electronically] signed by Oni DiamondNPatrice on FriAug 25 2019 15:59:28 GMT-0600 (Central Standard Time)
[2019-08-25] MEDS ORDERED: BISACODYL 10 MG RECTAL SUPP PR PRN (17:22)
[2019-08-25] MEDS ORDERED: DOCUSATE NA/SENNA CONC 1 TAB PO SCH (21:00)
[2019-08-26 07:15] VITALS: TEMP 97.4
[2019-08-26] MEDS: MYCOPHENOLATE 200 MG/ML PO SCH (08:00)
[2019-08-26] MEDS: predniSONE 20 MG TAB PO SCH (08:00)
[2019-08-26] MEDS ORDERED: FUROSEMIDE 20 MG TABLET PO SCH (08:00)
[2019-08-26] MEDS: CEFDINIR 300 MG CAP PO SCH (08:00)
[2019-08-26] MEDS: ENSURE ENLIVE 237 ML CAN PO SCH (08:00)
[2019-08-26] MEDS: MAGNESIUM OXIDE 400 MG TAB PO SCH (08:00)
[2019-08-26] MEDS: AZITHROMYCIN 250 MG TAB PO SCH (08:00)
[2019-08-26] MEDS: APIXABAN 2.5 MG TABLET PO SCH (08:00)
[2019-08-26] MEDS: LOSARTAN 25 MG PO SCH (08:17)
[2019-08-26] MEDS: POLYETHYL GLY 3350 17 GM/DOSE PO SCH (08:17)
[2019-08-26 08:18] VITALS: BP 156/74
--- NOTE | 2019-08-26 10:02 | FAST ---
SHIFT START DATE/TIME: 08/26/2019 07:00 (GEOPHYSICS PROFESSOR) SHIFT END DATE/TIME: 08/26/2019 19:00 (GEOPHYSICS PROFESSOR) NAME WALTER TIWARI DATE OF : 1965 DATE OF ADMISSION: 08/21/2019 06:12 (GEOPHYSICS PROFESSOR) PHONE: AGE: 54 N# [id number] GENDER: Female ENCOUNTER PHYSICIAN: Dr. Jared Sands M.D. ADMISSION DIAGNOSIS: - Other Disabling Impairments 13 - Other Disabling Impairments (13) systemic lupus erythmatosus. EATING: EATING - STEP 1: Does the patient complete the activity by him/herself with no assistance (physical, verbal/nonverbal cueing, setup/clean-up)? Yes. 1. [id number] ADMISSION PERFORMANCE: Independent CODE: 06 ORAL HYGIENE: ORAL HYGIENE - STEP 1: Does the patient complete the activity by him/herself with no assistance (physical, verbal/nonverbal cueing, setup/clean-up)? Yes. 1. [id number] ADMISSION PERFORMANCE: Independent CODE: 06 TOILETING HYGIENE: TOILETING HYGIENE - STEP 1: Does the patient complete the activity by him/herself with no assistance (physical, verbal/nonverbal cueing, setup/clean-up)? Yes. 1. [id number] ADMISSION PERFORMANCE: Independent CODE: 06 BATHING: Not assessed/no information CODE: - DRESSING - UPPER BODY: DRESSING - UPPER BODY - STEP 1: Does the patient complete the activity by him/herself with no assistance (physical, verbal/nonverbal cueing, setup/clean-up)? Yes. 1. [id number] ADMISSION PERFORMANCE: Independent CODE: 06 DRESSING - LOWER BODY: DRESSING - LOWER BODY - STEP 1: Does the patient complete the activity by him/herself with no assistance (physical, verbal/nonverbal cueing, setup/clean-up)? Yes. 1. [id number] ADMISSION PERFORMANCE: Independent CODE: 06 PUTTING ON/TAKING OFF FOOTWEAR: FOOTWEAR - STEP 1: Does the patient complete the activity by him/herself with no assistance (physical, verbal/nonverbal cueing, setup/clean-up)? Yes. 1. [id number] ADMISSION PERFORMANCE: Independent CODE: 06 ROLL LEFT AND RIGHT: ROLL LEFT AND RIGHT - STEP 1: Does the patient complete the activity by him/herself with no assistance (physical, verbal/nonverbal cueing, setup/clean-up)? No. ROLL LEFT AND RIGHT - STEP 2: Does the patient need only setup/clean-up assistance from one helper? No. ROLL LEFT AND RIGHT - STEP 3: Does the patient need only verbal/nonverbal cueing or touching/steadying/contact guard assistance fro m one helper? Yes. 1. [id number] ADMISSION PERFORMANCE: Supervision or touching assistance CODE: 04 SIT TO LYING: SIT TO LYING - STEP 1: Does the patient complete the activity by him/herself with no assistance (physical, verbal/nonverbal cueing, setup/clean-up)? No. SIT TO LYING - STEP 2: Does the patient need only setup/clean-up assistance from one helper? No. SIT TO LYING - STEP 3: Does the patient need only verbal/nonverbal cueing or touching/steadying/contact guard assistance fro m one helper? Yes. 1. [id number] ADMISSION PERFORMANCE: Supervision or touching assistance CODE: 04 LYING TO SITTING: LYING TO SITTING ON SIDE OF BED - STEP 1: Does the patient complete the activity by him/herself with no assistance (physical, verbal/nonverbal cueing, setup/clean-up)? No. LYING TO SITTING ON SIDE OF BED - STEP 2: Does the patient need only setup/clean-up assistance from one helper? No. LYING TO SITTING ON SIDE OF BED - STEP 3: Does the patient need only verbal/nonverbal cueing or touching/steadying/contact guard assistance fro m one helper? Yes. 1. [id number] ADMISSION PERFORMANCE: Supervision or touching assistance CODE: 04 SIT TO STAND: SIT TO STAND - STEP 1: Does the patient complete the activity by him/herself with no assistance (physical, verbal/nonverbal cueing, setup/clean-up)? No. SIT TO STAND - STEP 2: Does the patient need only setup/clean-up assistance from one helper? No. SIT TO STAND - STEP 3: Does the patient need only verbal/nonverbal cueing or touching/steadying/contact guard assistance fro m one helper? Yes. 1. [id number] ADMISSION PERFORMANCE: Supervision or touching assistance CODE: 04 TRANSFERS: BED, CHAIR: CHAIR/[id number] TRANSFER - STEP 1: Does the patient complete the activity by him/herself with no assistance (physical, verbal/nonverbal cueing, setup/clean-up)? No. CHAIR/[id number] TRANSFER - STEP 2: Does the patient need only setup/clean-up assistance from one helper? No. CHAIR/[id number] TRANSFER - STEP 3: Does the patient need only verbal/nonverbal cueing or touching/steadying/contact guard assistance fro m one helper? Yes. 1. [id number] ADMISSION PERFORMANCE: Supervision or touching assistance CODE: 04 TRANSFER TOILET: TOILET TRANSFER - STEP 1: Does the patient complete the activity by him/herself with no assistance (physical, verbal/nonverbal cueing, setup/clean-up)? No. TOILET TRANSFER - STEP 2: Does the patient need only setup/clean-up assistance from one helper? No. TOILET TRANSFER - STEP 3: Does the patient need only verbal/nonverbal cueing or touching/steadying/contact guard assistance fro m one helper? Yes. 1. [id number] ADMISSION PERFORMANCE: Supervision or touching assistance CODE: 04 TRANSFERS: CAR: Not assessed/no information CODE: - WALK 10 FEET: WALK 10 FEET - STEP 1: Does the patient complete the activity by him/herself with no assistance (physical, verbal/nonverbal cueing, setup/clean-up)? Yes. 1. [id number] ADMISSION PERFORMANCE: Independent CODE: 06 WALK 50 FEET: WALK 50 FEET - STEP 1: Does the patient complete the activity by him/herself with no assistance (physical, verbal/nonverbal cueing, setup/clean-up)? No. WALK 50 FEET - STEP 2: Does the patient need only setup/clean-up assistance from one helper? No. WALK 50 FEET - STEP 3: Does the patient need only verbal/nonverbal cueing or touching/steadying/contact guard assistance fro m one helper? Yes. 1. [id number] ADMISSION PERFORMANCE: Supervision or touching assistance CODE: 04 WALK 150 FEET: WALK 150 FEET - STEP 1: Does the patient complete the activity by him/herself with no assistance (physical, verbal/nonverbal cueing, setup/clean-up)? No. WALK 150 FEET - STEP 2: Does the patient need only setup/clean-up assistance from one helper? No. WALK 150 FEET - STEP 3: Does the patient need only verbal/nonverbal cueing or touching/steadying/contact guard assistance fro m one helper? Yes. 1. [id number] ADMISSION PERFORMANCE: Supervision or touching assistance CODE: 04 WALK 10 FEET UNEVEN: Not assessed/no information CODE: - 1 STEP (CURB): Not assessed/no information CODE: - PICKING UP OBJECT: Not assessed/no information CODE: - DOES THE PATIENT USE A WHEELCHAIR/SCOOTER? Q1. DOES THE PATIENT USE A WHEELCHAIR/SCOOTER?: No CODE: 0 INDICATE THE TYPE OF WHEELCHAIR/SCOOTER USED: CODE: EXPR INDICATE THE TYPE OF WHEELCHAIR/SCOOTER USED: CODE: EXPR BLADDER AND BOWEL: H350. BLADDER CONTINENCE (3-DAY ASSESSMENT PERIOD): Always continent (no documented incontinence) CODE: 0 H400. BOWEL CONTINENCE (3-DAY ASSESSMENT PERIOD): Always continent CODE: 0 SIGNATURE PANEL: The following modified sections: 1. [id number] Admission Performance, 1. [id number] Admission Performance, 1. [id number] Admission Performance, 1. PD0139m Admission Performance, 1. [id number] Admission Performance, 1. [id number] Admission Performance, 1. VA1018G Admission Performance, 1. [id number] Admission Performance , 1. [id number] Admission Performance, 1. [id number] Admission Performance, 1. [id number] Admission Performanc e, 1. [id number] Admission Performance, 1. [id number] Admission Performance, 1. [id number] Admission Performan ce, 1. [id number] Admission Performance, Q1. Does the patient use a wheelchair/scooter?, H350. Bladder C ontinence (3-day assessment period), H400. Bowel Continence (3-day assessment period) were [leo castro] signed by Oni DerasNPatrice on FriAug 26 2019 10:01:03 GMT-0600 (Central Standard Time)
== END 2019-08-26 10:25 | disposition home or self-care (01) | DRG 545 ==
LOC: 5TH 08-21 05:46
PROVIDERS: ADMIT Psychiatry & Neurology Neurology with Special Qualifications in Child Neurology; ATTEND Psychiatry & Neurology Neurology with Special Qualifications in Child Neurology
DX: M32.9 Systemic lupus erythematosus, unspecified (principal); J18.9 Pneumonia, unspecified organism; K31.84 Gastroparesis; I10 Essential (primary) hypertension; I50.9 Heart failure, unspecified; F32.9 Major depressive disorder, single episode, unspecified
CPT/HCPCS: 36415; 80048; 81001; 82040; 83735; 84134; 85025; 87086; 87088; 90471; 90670; 97110; 97112; 97116; 97161; 97530; J7512; Q2035